=== PATIENT | male | born 1945 | race Caucasian/White ===

== ENCOUNTER 2016-11-01 17:10 | Emergency (ER) | payer BC, MEDICARE ==
[~2016-11-01] VITALS: Ht 175.3 cm; Wt 170.1 kg
[~2016-11-01 17:10] MED LIST: ACTOPLUS; ALLO100T; ALLO100T PO; ALLP300T PO; AMOX875T2; ASP325T; ASP81TEC PO; B12; CELE-63 PO; CELE200C; CHOL10007 PO; CITA20TA7 PO; CYAN100015 SL; DILT240C; DILT240C PO; DILT240C53 PO; ENXP80I.8 SQ; ESCT10T PO; FERR-74 PO; FERR325C PO; FINA5TAB6 PO; FLC1T; FLUC100T6 PO; FNST5T; FOLI1TAB24 PO; FRSM20T; FURO40TA4 PO; GLIP5TAB13; GLPZ10TCR; HYDR-2997 PO; IBP200T; INSU100I10; INSU100I10 SC; INSU100I23 SC; ISM30TCR; ISOS30TA3 PO; JANUVIA; KCL20TCR; LACT1CAP28 PO; NEBI5TAB8 PO; NF-ESOM40C PO; NYST15CR TP; OLME40TA14; OMEP20CA12; PIOG1TAB PO; POTA20TA8 PO; PRAV40TA; PRAV40TA2 PO; PRV20T; SULF1TAB35 PO; TAMS0.4C2 PO; WARF10TA4; WARF10TA44 PO; WRF10T PO; WRF1T PO; WRF5T PO; [UNRECOGNIZED DRUG - CODE]; [UNRECOGNIZED DRUG - REMARK]
[2016-11-01 18:34] LABS: BASOPHILS # (AUTO) 0.1 10^3/uL (0.0-0.1); BASOPHILS % (AUTO) 1 % (0-10); EOSINOPHILS # (AUTO) 0.4 10^3/uL (0.0-0.3); EOSINOPHILS % (AUTO) 3 % (0-10); LYMPHOCYTES # (AUTO) 2.2 X 10^3 (1.0-4.0); LYMPHOCYTES % (AUTO) 20 % (12-44); MEAN CORPUSCULAR HEMOGLOBIN 32 PG (25-34); MEAN CORPUSCULAR HGB CONC 34 G/DL (32-36); MEAN CORPUSCULAR VOLUME 93 FL (80-99); MEAN PLATELET VOLUME 9.7 FL (7.4-10.4); MONOCYTES # (AUTO) 1.2 X 10^3 (0.0-1.0); MONOCYTES % (AUTO) 11 % (0-12); NEUTROPHILS # (AUTO) 7.3 X 10^3 (1.8-7.8); NEUTROPHILS % (AUTO) 65 % (42-75); PLATELET COUNT 260 10^3/uL (130-400); RED BLOOD COUNT 4.53 10^6/uL (4.35-5.85); RED CELL DISTRIBUTION WIDTH 13.8 % (10.0-14.5); WHITE BLOOD COUNT 11.1 10^3/uL (4.3-11.0)
[2016-11-01] MEDS ORDERED: LIDOCAINE 1% INJ 20 ML (XYLOCAINE) VIAL ONE (18:34)
[2016-11-01 18:43] LABS: INR 2.9 (0.8-1.4)
--- NOTE | 2016-11-01 18:54 | ED Integumentary General ---
General Chief Complaint: Skin/Wound Problems Stated Complaint: HOLE IN SCROTUM Nursing Triage Note: AMB TO ROOM THINK MAY HAVE A WOUND ON SCROTUM THAT IS BLEEDING. Source: patient (SOMEWHAT LIMITED HISTORIAN), spouse (WOFE GIVES MOST INFORMATION) History of Present Illness Time seen by provider: 18:05 Initial Comments PT ARRIVES VIA POV PT BEGAN HAVING BLEEDING FROM HIS SCROTAL AREA THIS AM ON WAKING NO PAIN NO KNOWN INJURY WAS NOT AWARE OF ANY SORE IN THE AREA NO HISTORY OF SIMILAR NO DIFFICULTY URINATING OR WITH BOWEL MOVEMENTS. PT DOES HAVE INCONTINENCE OF URINE CHRONICALLY. PT TAKES COUMADIN FOR CHRONIC ATRIAL FIBRILLATION--LAST PROTIME WAS NORMAL PCP: DR. TORRES BENDING ROLL OPERATOR: DR. NORWOOD Allergies and Home Medications Allergies Coded Allergies: No Known Drug Allergies (Verified , 09/11/07) Home Medications Allopurinol 100 Mg Tablet, 100 MG PO BID, (Reported) Aspirin 81 Mg Tabec, 162 MG PO DAILY, (Reported) TAKES 2 (81MG) TABLETS Celecoxib 200 Mg Capsule, 200 MG PO BID, (Reported) Cholecalciferol (Vitamin D3) 1,000 Unit Capsule, 1,000 UNIT PO DAILY, (Reported) Citalopram Hydrobromide 20 Mg Tablet, 20 MG PO DAILY, (Reported) Cyanocobalamin (Vitamin B-12) 1,000 Mcg Tab.subl, 1,000 MCG SL DAILY, (Reported) Diltiazem HCl 240 Mg Cap.er.24h, 240 MG PO DAILY, (Reported) Ferrous Sulfate 325 Mg Tablet, 325 MG PO DAILY, (Reported) Finasteride 5 Mg Tablet, 5 MG PO DAILY, (Reported) Fluconazole 100 Mg Tablet, 100 MG PO DAILY@08, #7 Prescribed by: AGUEDA MCCAIN on 03/20/15 1109 Folic Acid 1 Mg Tablet, 1 MG PO DAILY, (Reported) Furosemide 40 Mg Tablet, 40 MG PO BID, (Reported) Insulin Glargine,Hum.rec.anlog 100 Unit/1 Ml Insuln.pen, 95 UNITS SC BID, ( Reported) Insulin Lispro 100 Unit/1 Ml Insuln.pen, 17 UNITS SC AC, (Reported) Isosorbide Mononitrate 30 Mg Tab.er.24h, 30 MG PO DAILY, (Reported) Lactobacillus Acidophilus 1 Each Capsule, 1 EACH PO TID, #30 Prescribed by: AGUEDA MCCAIN on 03/20/15 1109 Nebivolol HCl 5 Mg Tablet, 5 MG PO DAILY, (Reported) Nystatin 15 Gm Cream..g., 0 GM TP TID, #3 Prescribed by: AGUEDA MCCAIN on 03/20/15 1109 Potassium Chloride 20 Meq Tab.er.prt, 20 MEQ PO DAILY, (Reported) Pravastatin Sodium 40 Mg Tablet, 40 MG PO HS, (Reported) Sulfamethoxazole/Trimethoprim 1 Each Tablet, 1 EACH PO BID, #10 Prescribed by: AGUEDA MCCAIN on 03/20/15 1109 Tamsulosin HCl 0.4 Mg Cap.er.24h, 0.4 MG PO HS, (Reported) Warfarin Sodium 10 Mg Tablet, 10 MG PO HS, (Reported) Constitutional: no symptoms reported Genitourinary: see HPI Skin: see HPI Past Vpspfyb-Ygsvmf-Wlvtnu Hx Patient Social History Alcohol Use: Denies Use Recreational Drug Use: No Smoking Status: Never a Smoker Recent Foreign Travel: No Contact w/Someone Who Travel: No Recent Infectious Disease Expo: No Recent Hopitalizations: No Immunizations Up To Date Date of Pneumonia Vaccine: Apr 07, 2012 Date of Influenza Vaccine: Apr 07, 2014 Surgeries HX Surgeries: Yes (STITCHES IN LIP; CARDIAC CATH--STENT X 1) Surgeries: Cardiac, Coronary Stent, Eye Surgery, Gallbladder Respiratory Hx Respiratory Disorders: Yes Respiratory Disorders: Pneumonia, Sleep Apnea Cardiovascular Hx Cardiac Disorders: Yes (STENT x1) Cardiac Disorders: Chronic Edema/Swelling, High Cholesterol, Hypertension Neurological Hx Neurological Disorders: No Reproductive System Hx Reproductive Disorders: No Genitourinary Hx Genitourinary Disorders: No Gastrointestinal Hx Gastrointestinal Disorders: No Musculoskeletal Hx Musculoskeletal Disorders: Yes Musculoskeletal Disorders: Arthritis Endocrine Hx Endocrine Disorders: Yes (MORBID OBESITY) Endocrine Disorders: Diabetes, Insulin dep HEENT HX ENT Disorders: Yes ("white patch on eye") Hearing Impairment: Hard of Hearing, Bilateral Hearing Aide Cancer Hx Cancer: No Psychosocial Hx Psychiatric Problems: Yes Behavioral Health Disorders: Anxiety, Depression Integumentary HX Skin/Integumentary Disorder: Yes (CELLULITIS LOWER LEGS--CHRONIC STASIS DERMATITIS) Blood Transfusions Hx Blood Disorders: No Adverse Reaction to a Blood Tr: No Physical Exam Vital Signs Vital Sign - Last 12Hours 11/01/16 11/01/16 17:50 19:57 Temp 98.0 Pulse 84 Resp 18 B/P (MAP) 179/97 Pulse Ox 95 Capillary Refill : Less Than 3 Seconds General Appearance: obese (MORBIDLY OBESE) Gastrointestinal: non tender Skin: other (CHRONIC VENOUS STASIS CHANGES TO BILATERAL LOWER LEGS . SCROTUM WITH SUPERFICIAL VARICOSITIES, WITH PINPOINT AREA OF BLEEDING DIRECTLY OVER A VARICOSITY. ) Laceration Repair : Wound Location: Other (SCROTUM) Anesthesia: 1% Lidocaine Progress BLEEDING AREA CAUTERIZED WITH ELECTROCAUTERY WITH COMPLETE RESOLUTION OF BLEEDING PT OBSERVED IN ER FOR NEARLY AN HOUR WITH NO RETURN OF BLEEDING, EVEN ON STANDING AND WALKING TO BATHROOM, Progress/Results/Core Measures Results/Orders Lab Results Laboratory Tests Test 11/01/16 18:25 Range/Units White Blood Count 11.1 H 4.3-11.0 10^3/uL Red Blood Count 4.53 4.35-5.85 10^6/uL Hemoglobin 14.3 13.3-17.7 G/DL Hematocrit 42 40-54 % Mean Corpuscular Volume 93 80-99 FL Mean Corpuscular Hemoglobin 32 25-34 PG Mean Corpuscular Hemoglobin Concent 34 32-36 G/DL Red Cell Distribution Width 13.8 10.0-14.5 % Platelet Count 260 130-400 10^3/uL Mean Platelet Volume 9.7 7.4-10.4 FL Neutrophils (%) (Auto) 65 42-75 % Lymphocytes (%) (Auto) 20 12-44 % Monocytes (%) (Auto) 11 0-12 % Eosinophils (%) (Auto) 3 0-10 % Basophils (%) (Auto) 1 0-10 % Neutrophils # (Auto) 7.3 1.8-7.8 X 10^3 Lymphocytes # (Auto) 2.2 1.0-4.0 X 10^3 Monocytes # (Auto) 1.2 H 0.0-1.0 X 10^3 Eosinophils # (Auto) 0.4 H 0.0-0.3 10^3/uL Basophils # (Auto) 0.1 0.0-0.1 10^3/uL Prothrombin Time 30.0 H 12.2-14.7 SEC INR Comment 2.9 H 0.8-1.4 Activated Partial Thromboplast Time 39 H 24-35 SEC My Orders Orders - DORON LEES DO Cbc With Automated Diff (11/01/16 18:09) Protime With Inr (11/01/16 18:09) Partial Thromboplastin Time (11/01/16 18:09) Lidocaine 1% Injection (Xylocaine 1% Inj (11/01/16 18:34) Vital Signs/I&O Vital Sign - Last 12Hours 11/01/16 11/01/16 17:50 19:57 Temp 98.0 Pulse 84 70 Resp 18 18 B/P (MAP) 179/97 Pulse Ox 95 Blood Pressure Mean: 124 Departure Impression Impression: Primary Impression: SPONTANEOUS BLEEDING FROM SUPERFICIAL SCROTAL VARICOSE VEIN Additional Impression: Anticoagulation adequate with anticoagulant therapy Disposition: HOME, SELF-CARE Condition: Improved Departure-Patient Inst. Referrals: NENA TORRES DO (PCP/Family) Primary Care Physician Patient Instructions: Varicose Veins (DC), Wound Care (DC) Add. Discharge Instructions: AVOID ANY FRICTION OR RUBBING OF THE WOUND FOR 24 HOURS, THEN VERY GENTLY CLEAN WITH SOAP AND WATER IF AREA RE-BLEEDS, APPLY PRESSURE AND COOL COMPRESS FOLLOW UP WITH YOUR DR TOMORROW IF AREA CONTINUES TO BLEED All discharge instructions reviewed with patient and/or family. Voiced understanding. DORON LEES DO Nov 01, 2016 18:54
[2016-11-01 19:57] VITALS: BP 197/79
== END 2016-11-01 19:57 | disposition home or self-care (01) ==
LOC: EDUNIT# 17:10 → ER 17:12
DX: I86.1 Scrotal varices (principal); I10 Essential (primary) hypertension; E11.9 Type 2 diabetes mellitus without complications; I48.2 Chronic atrial fibrillation; R32 Unspecified urinary incontinence; E66.01 Morbid (severe) obesity due to excess calories; Z79.4 Long term (current) use of insulin; Z79.01 Long term (current) use of anticoagulants; Z79.899 Other long term (current) drug therapy; Z79.82 Long term (current) use of aspirin
CPT/HCPCS: 36415; 85025; 85610; 85730; 99281

== ENCOUNTER 2017-09-06 22:51 | Emergency (ER) | payer BC, MEDICARE ==
[~2017-09-06] VITALS: Ht 175.3 cm; Wt 172.4 kg
[~2017-09-06 22:51] MED LIST changes: -FERR-74 PO; +FERR325T18 PO
--- OUTSIDE RECORDS SUMMARY | 2017-09-06 22:58 | XMS REPORT | Continuity of Care Document ---
Author Author [facility] Organization [facility] Address Unknown Phone Unavailable Allergies Active Description Code Type Severity Reaction Onset Reported/Identified Relationship to Patient Clinical Status Yes No Known Drug Allergies [id number] Drug Allergy Unknown N/A 09/11/2007 Medications There is no data. Problems Date Dx Coded Attending Type Code Diagnosis Diagnosed By 10/13/2010 Ot 250.00 10/13/2010 Ot 272.4 10/13/2010 Ot 275.2 10/13/2010 Ot 278.01 10/13/2010 Ot 401.9 10/13/2010 Ot 414.01 10/13/2010 Ot 427.31 10/13/2010 Ot V45.82 10/13/2010 Ot V85.42 01/13/2011 Ot 427.31 05/30/2012 Ot 922.1 CONTUSION OF CHEST WALL 05/30/2012 Ot 959.11 OTH INJURY OF CHEST WALL 05/30/2012 Ot E000.8 OTHER EXTERNAL CAUSE STATUS 05/30/2012 Ot E001.0 ACTIVITIES INVOLVING WALKING, MARCHING A 05/30/2012 Ot E849.6 ACCIDENT IN PUBLIC BLDG 05/30/2012 Ot E880.1 FALL ON OR FROM SIDEWALK CURB 05/12/2014 NENA TORRES DO Ot 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 05/20/2014 NENA TORRES DO Ot 729.5 06/04/2014 Ot 959.7 06/04/2014 Ot E000.8 06/04/2014 Ot E849.0 06/04/2014 Ot E928.9 06/04/2014 Ot 427.31 06/04/2014 Ot 427.31 06/04/2014 ENMA PATEL FACC, BERNADETTE FACP CCDS Ot 250.00 06/04/2014 ENMA PATEL FACC, BERNADETTE FACP CCDS Ot 414.00 06/04/2014 ENMA PATEL FACC, BERNADETTE FACP CCDS Ot 427.31 06/04/2014 ENMA JACKMAN, ALI FACP CCDS Ot 433.10 06/04/2014 ENMA PAETL FAC, ALI FACP CCDS Ot 433.30 06/04/2014 ENMA PATEL FAC, ALI FACP CCDS Ot 785.9 06/04/2014 ENMA PATEL FACDominic, ALI FACP CCDS Ot 786.09 06/04/2014 NENA TORRES DO S Ot 603.9 06/04/2014 JEDCORY BUSINESS PROPOSAL REP Ot V58.69 06/04/2014 DARLEENCORY [place]LIN BUSINESS PROPOSAL REP Ot V58.83 06/04/2014 NENA TORRES DO S Ot 729.5 06/04/2014 NEREYDA CONNOLLY MD Ot 250.00 DIAB MELISA WO COMPL, TYPE II OR UNSPEC TY 06/04/2014 NEREYDA CONNOLLY MD Ot 272.0 PURE HYPERCHOLESTEROLEM 06/04/2014 NEREYDA CONNOLLY MD Ot 401.9 HYPERTENSION NOS 06/04/2014 NEREYDA CONNOLLY MD Ot 719.46 JOINT PAIN-L/LEG 06/04/2014 NEREYDA CONNOLLY MD Ot 920 CONTUSION FACE/SCALP/NCK 06/04/2014 NEREYDA CONNOLLY MD Ot 924.11 CONTUSION OF KNEE 06/04/2014 NEREYDA CONNOLLY MD Ot E000.8 OTHER EXTERNAL CAUSE STATUS 06/04/2014 NEREYDA CONNOLLY MD Ot E849.0 ACCIDENT IN HOME 06/04/2014 NEREYDA CONNOLLY MD Ot E880.9 FALL ON STAIR/STEP NEC 06/04/2014 NEREYDA CONNOLLY MD Ot V58.67 LONG-TERM (CURRENT) USE OF INSULIN 03/17/2015 Ot 959.7 03/17/2015 Ot E000.8 03/17/2015 Ot E849.0 03/17/2015 Ot E928.9 03/17/2015 Ot 427.31 03/17/2015 Ot 427.31 03/17/2015 ENMA PATEL FACC, ALI FACP CCDS Ot 250.00 03/17/2015 ENMA PATEL FAC, ALI FACP CCDS Ot 414.00 03/17/2015 ENMA PATEL FAC, ALI FACP CCDS Ot 427.31 03/17/2015 ENMA PATEL [facility], BERNADETTE [facility] CCDS Ot 433.10 03/17/2015 ENMA PATEL [facility] CCDS Ot 433.30 03/17/2015 ENMA PATEL [facility] CCDS Ot 785.9 03/17/2015 ENMA PATEL [facility] CCDS Ot 786.09 03/17/2015 NENA TORRES DO S Ot 603.9 03/17/2015 JED CORY [place] BUSINESS PROPOSAL REP Ot V58.69 03/17/2015 JED CORY [place] BUSINESS PROPOSAL REP Ot V58.83 03/17/2015 NENA TORRES DO S Ot 729.5 03/20/2015 KEKE TORRES DOLINE S Ot 038.9 SEPTICEMIA NOS 03/20/2015 KEKE TORRES DOLINE S Ot 112.3 CUTANEOUS CANDIDIASIS 03/20/2015 KACEY TORRES DOQUELINE S Ot 250.00 DIAB MELISA WO COMPL, TYPE II OR UNSPEC TY 03/20/2015 KEKE TORRES DOLINE S Ot 276.51 DEHYDRATION 03/20/2015 KACEY TORRES DOQUELINE S Ot 278.00 OBESITY, NOS 03/20/2015 KEKE TORRES DOLINE S Ot 401.9 HYPERTENSION NOS 03/20/2015 KEKE TORRES DOLINE S Ot 427.31 ATRIAL FIBRILLATION 03/20/2015 KACEY TORRES DOQUELINE S Ot 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 03/20/2015 KEKE TORRES DOLINE S Ot 593.9 RENAL URETERAL DIS NOS 03/20/2015 KEKE TORRES DOLINE S Ot 995.91 SEPSIS 03/20/2015 KEKE TORRES DOLINE S Ot V04.81 ND FOR PROPHYLACTIC VACCIN AND INOCULATI 03/20/2015 KEKE TORRES DOLINE S Ot V58.61 ANTICOAGULANTS,LT,CURRENT USE 03/20/2015 KEKE TORRES DOLINE S Ot V58.67 LONG-TERM (CURRENT) USE OF INSULIN 03/20/2015 KEKE TORRES DOLINE S Ot V85.43 BODY MASS INDEX 50.0-59.9, ADULT 09/01/2015 Ot 959.7 09/01/2015 Ot E000.8 09/01/2015 Ot E849.0 09/01/2015 Ot E928.9 09/01/2015 Ot 427.31 09/01/2015 Ot 427.31 09/01/2015 ENMA PATEL FACC, BERNADETTE FACP CCDS Ot 250.00 09/01/2015 ENAM PATEL FACC, ALI FACP CCDS Ot 414.00 09/01/2015 ENMA PATEL FACC, ALI FACP CCDS Ot 427.31 09/01/2015 ENMA PATEL FACC, ALI FACP CCDS Ot 433.10 09/01/2015 ENMA PATEL FACC, ALI FACP CCDS Ot 433.30 09/01/2015 ENMA PATEL FACC, BERNADETTE FACP CCDS Ot 785.9 09/01/2015 ENMA PATEL FACC, BERNADETTE FACP CCDS Ot 786.09 09/01/2015 NENA TORRES DO S Ot 603.9 09/01/2015 CORY ADKINSP Ot V58.69 09/01/2015 CORY ADIKNS BUSINESS PROPOSAL REP Ot V58.83 09/01/2015 NENA TORRES DO S Ot 729.5 09/28/2016 ENMA PATEL FACC, BERNADETTE FACP CCDS Ot 250.00 DIAB MELISA WO COMPL, TYPE II OR UNSPEC TY 09/28/2016 ENMA PATEL FACC, BERNADETTE FACP CCDS Ot 414.00 CORON ATHEROSCLER NOS TYPE VESSEL, NATIV 09/28/2016 ENMA PATEL FACC, BERNADETTE FACP CCDS Ot 427.31 ATRIAL FIBRILLATION 09/28/2016 ENMA PATEL FACC, BERNADETTE FACP CCDS Ot 433.10 CAROTID ARTERY OCCLUSION W O CEREBRAL IN 09/28/2016 ENMA PATEL FACC, BERNADETTE FACP CCDS Ot 433.30 MULT BILTRAL ARTERY OCCLUSION WO CEREBRA 09/28/2016 ENMA PATEL FACC, BERNADETTE FACP CCDS Ot 785.9 CARDIOVAS SYS SYMP NEC 09/28/2016 ENMA PATEL FACC, BERNADETTE FACP CCDS Ot 786.09 RESPIRATORY ABNORM NEC 09/28/2016 NENA TORRES DO S Ot 603.9 HYDROCELE NOS 09/28/2016 CORY ADKINS BUSINESS PROPOSAL REP Ot V58.69 OT MED,LT,CURRENT USE 09/28/2016 CORY ADKINS BUSINESS PROPOSAL REP Ot V58.83 ENCOUNTER FOR THERAPEUTIC DRUG MONITORIN 09/28/2016 NENA TORRES DO S Ot 729.5 PAIN IN LIMB 11/01/2016 ENMA PATEL FACC, BERNADETTE FACP CCDS Ot 250.00 DIAB MELISA WO COMPL, TYPE II OR UNSPEC TY 11/01/2016 ENMA PATEL FACC, ALI FACP CCDS Ot 414.00 CORON ATHEROSCLER NOS TYPE VESSEL, NATIV 11/01/2016 ENMA PATEL FACC, ALI FACP CCDS Ot 427.31 ATRIAL FIBRILLATION 11/01/2016 ENMA PATEL FACC, ALI FACP CCDS Ot 433.10 CAROTID ARTERY OCCLUSION W O CEREBRAL IN 11/01/2016 ENMA PATEL FACC, ALI FACP CCDS Ot 433.30 MULT BILTRAL ARTERY OCCLUSION WO CEREBRA 11/01/2016 ENAM PATEL FACC, ALI FACP CCDS Ot 785.9 CARDIOVAS SYS SYMP NEC 11/01/2016 ENMA PATEL FACC, ALI FACP CCDS Ot 786.09 RESPIRATORY ABNORM NEC 11/01/2016 NENA TORRES DO S Ot 603.9 HYDROCELE NOS 11/01/2016 CORY ADKINS BUSINESS PROPOSAL REP Ot V58.69 OTH MED,LT,CURRENT USE 11/01/2016 CORY ADKINS BUSINESS PROPOSAL REP Ot V58.83 ENCOUNTER FOR THERAPEUTIC DRUG MONITORIN 11/01/2016 NENA TORRES DO S Ot 729.5 PAIN IN LIMB 11/01/2016 DORON LEES DO Ot E11.9 TYPE 2 DIABETES MELLITUS WITHOUT COMPLIC 11/01/2016 DORON LEES DO Ot E66.01 MORBID (SEVERE) OBESITY DUE TO EXCESS CA 11/01/2016 DORON LEES DO Ot I10 ESSENTIAL (PRIMARY) HYPERTENSION 11/01/2016 DORON LEES DO Ot I48.2 CHRONIC ATRIAL FIBRILLATION 11/01/2016 DORON LEES DO Ot I86.1 SCROTAL VARICES 11/01/2016 DORON LEES DO Ot R32 UNSPECIFIED URINARY INCONTINENCE 11/01/2016 DORON LEES DO Ot Z79.01 SENIOR CARE (CURRENT) USE OF ANTICOAGULANT 11/01/2016 DORON LEES DO Ot Z79.4 SENIOR CARE (CURRENT) USE OF INSULIN 11/01/2016 DORON LEES DO Froy Ot 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 11/01/2016 YOANA DORON HIGGINS Ot Z79.899 OTHER 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 MECHANIC (CURRENT) DRUG THERAPY 11/14/2016 ENMA PATEL FACC, ALI FACP CCDS Ot 250.00 DIAB MELISA WO COMPL, TYPE II OR UNSPEC TY 11/14/2016 ENMA PATEL FACC, ALI FACP CCDS Ot 414.00 CORON ATHEROSCLER NOS TYPE VESSEL, NATIV 11/14/2016 ENMA PATEL FACC, ALI FACP CCDS Ot 427.31 ATRIAL FIBRILLATION 11/14/2016 ENMA PATEL FACC, ALI FACP CCDS Ot 433.10 CAROTID ARTERY OCCLUSION W O CEREBRAL IN 11/14/2016 ENMA PATEL FACC, ALI FACP CCDS Ot 433.30 MULT BILTRAL ARTERY OCCLUSION WO CEREBRA 11/14/2016 ENMA PATEL FACC, ALI FACP CCDS Ot 785.9 CARDIOVAS SYS SYMP NEC 11/14/2016 ENMA PATEL FACC, ALI FACP CCDS Ot 786.09 RESPIRATORY ABNORM NEC 11/14/2016 NENA TORRES DO S Ot 603.9 HYDROCELE NOS 11/14/2016 CORY ADKINSP Ot V58.69 OTH MED,LT,CURRENT USE 11/14/2016 CORY ADKINS BUSINESS PROPOSAL REP Ot V58.83 ENCOUNTER FOR THERAPEUTIC DRUG MONITORIN 11/14/2016 NENA TORRES DO S Ot 729.5 PAIN IN LIMB Procedures There is no data. Results Test Result Range Complete blood count (CBC) with automated white blood cell (WBC) differential - 11/01/16 18:25 Blood leukocytes automated count (number/volume) 11.1 10*3/uL 4.3-11.0 Blood erythrocytes automated count (number/volume) 4.53 10*6/uL 4.35-5.85 Venous blood hemoglobin measurement (mass/volume) 14.3 g/dL 13.3-17.7 Blood hematocrit (volume fraction) 42 % 40-54 Automated erythrocyte mean corpuscular volume 93 [foz_us] 80-99 Automated erythrocyte mean corpuscular hemoglobin (mass per erythrocyte) 32 pg 25-34 Automated erythrocyte mean corpuscular hemoglobin concentration measurement ( mass/volume) 34 g/dL 32-36 Automated erythrocyte distribution width ratio 13.8 % 10.0-14.5 Automated blood platelet count (count/volume) 260 10*3/uL 130-400 Automated blood platelet mean volume measurement 9.7 [foz_us] 7.4-10.4 Automated blood neutrophils/100 leukocytes 65 % 42-75 Automated blood lymphocytes/100 leukocytes 20 % 12-44 Blood monocytes/100 leukocytes 11 % 0-12 Automated blood eosinophils/100 leukocytes 3 % 0-10 Automated blood basophils/100 leukocytes 1 % 0-10 Blood neutrophils automated count (number/volume) 7.3 10*3 1.8-7.8 Blood lymphocytes automated count (number/volume) 2.2 10*3 1.0-4.0 Blood monocytes automated count (number/volume) 1.2 10*3 0.0-1.0 Automated eosinophil count 0.4 10*3/uL 0.0-0.3 Automated blood basophil count (count/volume) 0.1 10*3/uL 0.0-0.1 PT panel in platelet poor plasma by coagulation assay - 11/01/16 18:25 Prothrombin time (PT) in platelet poor plasma by coagulation assay 30.0 s 12.2-14.7 INR in platelet poor plasma or blood by coagulation assay 2.9 0.8-1.4 Activated partial thromboplastin time (aPTT) in platelet poor plasma bycoagulation assay - 11/01/16 18:25 Activated partial thromboplastin time (aPTT) in platelet poor plasma bycoagulation assay 39 s 24-35 Encounters ACCT No. Visit Date/Time Discharge Status Pt. Type Provider Facility Loc./Unit Complaint [id number] 11/01/2016 17:12:00 11/01/2016 19:57:00 DIS Emergency DORON LEES DO [facility] ER HOLE IN SCROTUM [id number] 03/17/2015 13:16:00 03/20/2015 13:50:00 DIS Inpatient NENA TORRES DO [facility] 4TH SUSPECTED SEPSIS [id number] 06/04/2014 15:26:00 06/04/2014 17:16:00 DIS Emergency NEREYDA CONNOLLY MD [facility] ER FALL; L SIDE PAIN [id number] 05/03/2014 10:50:00 05/12/2014 10:51:00 DIS Outpatient NENA TORRES DO [facility] WOUNDCARE BILAT VENOUS STASIS ULCERS,DERMATITIS [id number] 04/13/2014 14:52:00 04/13/2014 23:59:59 CLS Outpatient NENA TORRES DO [facility] RAD RT CALF SWELLING, PAIN [id number] 03/28/2014 10:13:00 03/28/2014 23:59:59 CLS Outpatient CORY ADKINS BUSINESS PROPOSAL REP [facility] LAB 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 MED USE [id number] 09/03/2013 09:35:00 09/03/2013 23:59:59 CLS Outpatient NENA TORRES DO [facility] RAD RT TESTICULAR SWELLING/PAIN [id number] 04/27/2013 08:43:00 04/27/2013 23:59:59 CLS Outpatient ENMA PATEL FACC, BERNADETTE FACP CCDS [facility] CARD DYSPNEA,CAD, AFIB [id number] 09/06/2017 22:54:00 ACT Emergency SWATI MCCORMACK MD [facility] ER BILAT ARM NUMBNESS/NECK PAIN [id number] 06/04/2014 15:27:00 Document Registration [id number] 06/04/2014 15:27:00 Document Registration [id number] 05/30/2012 08:41:00 Document Registration [id number] 01/14/2011 00:00:00 Document Registration [id number] 10/20/2010 09:43:00 Document Registration [id number] 10/15/2010 13:09:00 Document Registration [id number] 10/11/2010 11:00:00 Document Registration [id number] 04/21/2010 09:35:00 Document Registration
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
[2017-09-07 00:21] LABS: HEMOGLOBIN 13.9 G/DL (13.3-17.7); MEAN PLATELET VOLUME 9.8 FL (7.4-10.4); RED BLOOD COUNT 4.34 10^6/uL (4.35-5.85); RED CELL DISTRIBUTION WIDTH 13.5 % (10.0-14.5)
[2017-09-07 00:24] LABS: INR 2.8 (0.8-1.4)
[2017-09-07 00:26] LABS: FIBRIN DEGRADATION PRODUCTS 0.3 UG/ML (0.00-0.49)
[2017-09-07 00:32] LABS: BUN/CREATININE RATIO 22; CALCIUM 8.8 MG/DL (8.5-10.1); CARBON DIOXIDE 21 MMOL/L (21-32); CHLORIDE 104 MMOL/L (98-107); CREATININE SERUM 1.13 MG/DL (0.60-1.30); GFR ESTIMATED > 60; GLUCOSE 164 MG/DL (70-105); POTASSIUM 3.9 MMOL/L (3.6-5.0); SODIUM 137 MMOL/L (135-145)
[2017-09-07 01:10] VITALS: BP 135/71
== END 2017-09-07 01:10 | disposition home or self-care (01) ==
LOC: EDUNIT# 22:51 → ER 22:54
DX: M54.12 Radiculopathy, cervical region (principal); F41.9 Anxiety disorder, unspecified; F32.9 Major depressive disorder, single episode, unspecified; E78.00 Pure hypercholesterolemia, unspecified; I10 Essential (primary) hypertension; I48.91 Unspecified atrial fibrillation; G47.30 Sleep apnea, unspecified; E11.9 Type 2 diabetes mellitus without complications; E66.01 Morbid (severe) obesity due to excess calories; Z87.01 Personal history of pneumonia (recurrent); Z95.5 Presence of coronary angioplasty implant and graft; Z79.82 Long term (current) use of aspirin; Z79.01 Long term (current) use of anticoagulants; Z79.4 Long term (current) use of insulin; Z68.43 Body mass index [BMI] 50.0-59.9, adult
CPT/HCPCS: 36415; 80048; 82962; 84484; 85027; 85379; 85610

== ENCOUNTER 2018-04-18 13:13 | Emergency (ER) | payer OTHER, BC, MEDICARE ==
[~2018-04-18] VITALS: Ht 172.7 cm; Wt 136.1 kg
[~2018-04-18 13:13] MED LIST changes: -CITA20TA7 PO; +CITA20TA9 PO
[2018-04-18 13:29] LABS: BASOPHILS # (AUTO) 0.1 10^3/uL (0.0-0.1); BASOPHILS % (AUTO) 1 % (0-10); EOSINOPHILS # (AUTO) 0.2 10^3/uL (0.0-0.3); EOSINOPHILS % (AUTO) 2 % (0-10); HEMATOCRIT 44 % (40-54); HEMOGLOBIN 15.4 G/DL (13.3-17.7); LYMPHOCYTES # (AUTO) 2.1 X 10^3 (1.0-4.0); LYMPHOCYTES % (AUTO) 18 % (12-44); MEAN CORPUSCULAR HEMOGLOBIN 31 PG (25-34); MEAN CORPUSCULAR HGB CONC 35 G/DL (32-36); MEAN CORPUSCULAR VOLUME 90 FL (80-99); MEAN PLATELET VOLUME 9.5 FL (7.4-10.4); MONOCYTES # (AUTO) 0.9 X 10^3 (0.0-1.0); MONOCYTES % (AUTO) 8 % (0-12); NEUTROPHILS % (AUTO) 71 % (42-75); PLATELET COUNT 244 10^3/uL (130-400); RED BLOOD COUNT 4.92 10^6/uL (4.35-5.85); RED CELL DISTRIBUTION WIDTH 14.5 % (10.0-14.5); WHITE BLOOD COUNT 11.2 10^3/uL (4.3-11.0)
[2018-04-18] MEDS ORDERED: NS 250 ML (IVPB) BAG IV ONE (13:30)
[2018-04-18] MEDS ORDERED: IOHEXOL 350 MG/ML 100 ML (OMNIPAQUE 350) VIAL IV ONE (13:30)
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
[2018-04-18 14:12] LABS: BUN/CREATININE RATIO 21; CALCIUM 9.5 MG/DL (8.5-10.1); CARBON DIOXIDE 25 MMOL/L (21-32); CHLORIDE 100 MMOL/L (98-107); CREATININE SERUM 1.21 MG/DL (0.60-1.30); GFR ESTIMATED 59; GLUCOSE 133 MG/DL (70-105); POTASSIUM 3.7 MMOL/L (3.6-5.0); SODIUM 139 MMOL/L (135-145)
[2018-04-18] MEDS ORDERED: NS IV 500 ML 500 ML IV SCH (14:30)
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
[2018-04-18 15:35] VITALS: BP 142/70
--- OUTSIDE RECORDS SUMMARY | 2018-04-19 10:15 | XMS REPORT | Continuity of Care Document ---
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 05/20/2014 NATALIA GUTIERREZ DO Ot 729.5 06/04/2014 Ot 959.7 06/04/2014 Ot E000.8 06/04/2014 Ot E849.0 06/04/2014 Ot E928.9 06/04/2014 Ot 427.31 06/04/2014 Ot 427.31 06/04/2014 ENMA PATEL FACC, BERNADETTE FACP CCDS Ot 250.00 06/04/2014 ENMA PATEL FACC, BERNADETTE FACP CCDS Ot 414.00 06/04/2014 ENMA PATEL FACC, BERNADETTE FACP CCDS Ot 427.31 06/04/2014 ENMA JACKMAN, ALI FACP CCDS Ot 433.10 06/04/2014 ENMA PATEL FAC, ALI FACP CCDS Ot 433.30 06/04/2014 ENMA PATEL FAC, ALI FACP CCDS Ot 785.9 06/04/2014 ENMA PATEL FACDominic, ALI FACP CCDS Ot 786.09 06/04/2014 NATALIA GUTIERREZ DO S Ot 603.9 06/04/2014 JEDCORY NP Ot V58.69 06/04/2014 DARLEENCORY FRANKLIN NP Ot V58.83 06/04/2014 NATALIA GUTIERREZ DO S Ot 729.5 06/04/2014 NEREYDA CONNOLLY [...] FACP CCDS Ot 427.31 03/17/2015 ENMA PATEL [facility] [place] [facility] CCDS Ot 433.10 03/17/2015 ENMA PATEL [facility] CCDS Ot 433.30 03/17/2015 ENMA PATEL [facility] CCDS Ot 785.9 03/17/2015 ENMA PATEL [facility] CCDS Ot 786.09 03/17/2015 NATALIA GUTIERREZ DO S Ot 603.9 03/17/2015 JED CORY Arcelia NP Ot V58.69 03/17/2015 JED CORY [place] NP Ot V58.83 03/17/2015 NATALIA GUTIERREZ DO S Ot 729.5 03/20/2015 KEKE GUTIERREZ DOLINE S Ot 038.9 SEPTICEMIA NOS 03/20/2015 KEKE GUTIERREZ DOLINE S Ot 112.3 CUTANEOUS CANDIDIASIS 03/20/2015 KACEY GUTIERREZ DOQUELINE S Ot 250.00 DIAB MELISA WO COMPL, TYPE II OR UNSPEC TY 03/20/2015 KEKE GUTIERREZ DOLINE S Ot 276.51 DEHYDRATION 03/20/2015 KACEY GUTIERREZ DOQUELINE S Ot 278.00 OBESITY, NOS 03/20/2015 KEKE GUTIERREZ DOLINE S Ot 401.9 HYPERTENSION NOS 03/20/2015 KEKE GUTIERREZ DOLINE S Ot 427.31 ATRIAL FIBRILLATION 03/20/2015 KACEY GUTIERREZ DOQUELINE S Ot 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 03/20/2015 KEKE GUTIERREZ DOLINE S Ot 593.9 RENAL URETERAL DIS NOS 03/20/2015 KEKE GUTIERREZ DOLINE S Ot 995.91 SEPSIS 03/20/2015 KEKE GUTIERREZ DOLINE S Ot V04.81 ND FOR PROPHYLACTIC VACCIN AND INOCULATI 03/20/2015 KEKE GUTIERREZ DOLINE S Ot V58.61 ANTICOAGULANTS,LT,CURRENT USE 03/20/2015 KEKE GUTIERREZ DOLINE S Ot V58.67 LONG-TERM (CURRENT) USE OF INSULIN 03/20/2015 KEKE GUTIERREZ DOLINE S Ot V85.43 BODY MASS INDEX 50.0-59.9, ADULT 09/01/2015 Ot 959.7 09/01/2015 Ot E000.8 09/01/2015 Ot E849.0 09/01/2015 Ot E928.9 09/01/2015 Ot 427.31 09/01/2015 Ot 427.31 09/01/2015 ENMA PATEL FACC, BERNADETTE FACP CCDS Ot 250.00 09/01/2015 ENMA PATEL FACC, ALI FACP CCDS Ot 414.00 09/01/2015 ENMA PATEL FACC, ALI FACP CCDS Ot 427.31 09/01/2015 ENMA PATEL FACC, ALI FACP CCDS Ot 433.10 09/01/2015 ENMA PATEL FACC, ALI FACP CCDS Ot 433.30 09/01/2015 ENMA PATEL FACC, BERNADETTE FACP CCDS Ot 785.9 09/01/2015 ENMA PATEL FACC, BERNADETTE FACP CCDS Ot 786.09 09/01/2015 NATALIA GUTIERREZ DO S Ot 603.9 09/01/2015 CORY ADKINSP Ot V58.69 09/01/2015 CORY ADKINS NP Ot V58.83 09/01/2015 NATALIA GUTIERREZ DO S Ot 729.5 09/28/2016 ENMA PATEL [...] CCDS Ot 786.09 RESPIRATORY ABNORM NEC 09/28/2016 NATALIA GUTIERREZ DO S Ot 603.9 HYDROCELE NOS 09/28/2016 CORY ADKINS NP Ot V58.69 OT MED,LT,CURRENT USE 09/28/2016 CORY ADKINS NP Ot V58.83 ENCOUNTER FOR THERAPEUTIC DRUG MONITORIN 09/28/2016 NATALIA GUTIERREZ DO S Ot 729.5 PAIN IN LIMB [...] MULT BILTRAL ARTERY OCCLUSION WO CEREBRA 11/01/2016 ENMA PATEL FACC, ALI FACP CCDS Ot 785.9 CARDIOVAS SYS SYMP NEC 11/01/2016 ENMA PATEL FACC, ALI FACP CCDS Ot 786.09 RESPIRATORY ABNORM NEC 11/01/2016 NATALIA GUTIERREZ DO S Ot 603.9 HYDROCELE NOS 11/01/2016 CORY ADKINS NP Ot V58.69 OTH MED,LT,CURRENT USE 11/01/2016 CORY ADKINS NP Ot V58.83 ENCOUNTER FOR THERAPEUTIC DRUG MONITORIN 11/01/2016 NATALIA GUTIERREZ DO S Ot 729.5 PAIN IN LIMB [...] INCONTINENCE 11/01/2016 DORON LEES DO Ot Z79.01 [facility] (CURRENT) USE OF ANTICOAGULANT 11/01/2016 DORON LEES DO Ot Z79.4 [facility] (CURRENT) USE OF INSULIN 11/01/2016 DORON LEES DO Froy Ot 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 11/01/2016 YOANA DORON HIGGINS Ot Z79.899 OTHER ATOMIZER ASSEMBLER (CURRENT) DRUG THERAPY 11/14/2016 ENMA PATEL FACC, [...] CCDS Ot 786.09 RESPIRATORY ABNORM NEC 11/14/2016 NATALIA GUTIERREZ DO S Ot 603.9 HYDROCELE NOS 11/14/2016 CORY ADKINS NP Ot V58.69 OTH MED,LT,CURRENT USE 11/14/2016 CORY ADKINS NP Ot V58.83 ENCOUNTER FOR THERAPEUTIC DRUG MONITORIN 11/14/2016 NATALIA GUTIERREZ DO S Ot 729.5 PAIN IN LIMB 09/06/2017 ENMA PATEL FACC, ALI FACP CCDS Ot 250.00 DIAB MELISA WO COMPL, TYPE II OR UNSPEC TY 09/06/2017 ENMA PATEL FACC, ALI FACP CCDS Ot 414.00 CORON ATHEROSCLER NOS TYPE VESSEL, NATIV 09/06/2017 ENMA PATEL FACC, ALI FACP CCDS Ot 427.31 ATRIAL FIBRILLATION 09/06/2017 ENMA PATEL FACC, ALI FACP CCDS Ot 433.10 CAROTID ARTERY OCCLUSION W O CEREBRAL IN 09/06/2017 ENMA PATEL FACC, ALI FACP CCDS Ot 433.30 MULT BILTRAL ARTERY OCCLUSION WO CEREBRA 09/06/2017 ENMA PATEL FACC, ALI FACP CCDS Ot 785.9 CARDIOVAS SYS SYMP NEC 09/06/2017 ENMA PATEL FACC, ALI FACP CCDS Ot 786.09 RESPIRATORY ABNORM NEC 09/06/2017 BRIAN DO NATALIA S Ot 603.9 HYDROCELE NOS 09/06/2017 JEDCORY NP Ot V58.69 OTH MED,LT,CURRENT USE 09/06/2017 CLIFTONORALIACORY NP Ot V58.83 ENCOUNTER FOR THERAPEUTIC DRUG MONITORIN 09/06/2017 NATALIA GUTIERREZ DO S Ot 729.5 PAIN IN LIMB 09/07/2017 SWATI MCCORMACK MD Ot E11.9 TYPE 2 DIABETES MELLITUS WITHOUT COMPLIC 09/07/2017 SWATI MCCORMACK MD Ot E66.01 MORBID (SEVERE) OBESITY DUE TO EXCESS CA 09/07/2017 SWATI MCCORMACK MD Ot E78.00 PURE HYPERCHOLESTEROLEMIA, UNSPECIFIED 09/07/2017 SWATI MCCORMACK MD Ot F32.9 MAJOR DEPRESSIVE DISORDER, SINGLE EPISOD 09/07/2017 SWATI MCCORMACK MD Ot F41.9 ANXIETY DISORDER, UNSPECIFIED 09/07/2017 SWATI MCCORMACK MD Ot G47.30 SLEEP APNEA, UNSPECIFIED 09/07/2017 SWATI MCCORMACK MD Ot I10 ESSENTIAL (PRIMARY) HYPERTENSION 09/07/2017 SWATI MCCORMACK MD Ot I48.91 UNSPECIFIED ATRIAL FIBRILLATION 09/07/2017 SWATI MCCORMACK MD Ot M54.12 RADICULOPATHY, CERVICAL REGION 09/07/2017 SWATI MCCORMACK MD Ot M54.2 CERVICALGIA 09/07/2017 SWATI MCCORMACK MD Ot Z68.43 BODY MASS INDEX (BMI) 50-59.9 , ADULT 09/07/2017 SWATI MCCORMACK MD Ot 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.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 09/07/2017 SWATI MCCORMACK MD Ot Z79.4 [facility] (CURRENT) USE OF INSULIN 09/07/2017 SWATI MCCORMACK MD Ot 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 09/07/2017 SWATI MCCORMACK MD Ot Z87.01 PERSONAL HISTORY OF PNEUMONIA (RECURRENT 09/07/2017 SWATI MCCORMACK MD Ot Z95.5 PRESENCE OF CORONARY ANGIOPLASTY IMPLANT 09/09/2017 SWATI MCCORMACK MD Ot E11.9 TYPE 2 DIABETES MELLITUS WITHOUT COMPLIC 09/09/2017 SWATI MCCORMACK MD Ot E66.01 MORBID (SEVERE) OBESITY DUE TO EXCESS CA 09/09/2017 SWATI MCCORMACK MD Ot E78.00 PURE HYPERCHOLESTEROLEMIA, UNSPECIFIED 09/09/2017 SWATI MCCORMACK MD Ot F32.9 MAJOR DEPRESSIVE DISORDER, SINGLE EPISOD 09/09/2017 SWATI MCCORMACK MD Ot F41.9 ANXIETY DISORDER, UNSPECIFIED 09/09/2017 SWATI MCCORMACK MD Ot G47.30 SLEEP APNEA, UNSPECIFIED 09/09/2017 SWATI MCCORMACK MD Ot I10 ESSENTIAL (PRIMARY) HYPERTENSION 09/09/2017 SWATI MCCORMACK MD Ot I48.91 UNSPECIFIED ATRIAL FIBRILLATION 09/09/2017 SWATI MCCORMACK MD Ot M54.12 RADICULOPATHY, CERVICAL REGION 09/09/2017 SWATI MCCORMACK MD Ot M54.2 CERVICALGIA 09/09/2017 SWATI MCCORMACK MD Ot Z68.43 BODY MASS INDEX (BMI) 50-59.9 , ADULT 09/09/2017 SWATI MCCORMACK MD Ot Z79.01 [facility] (CURRENT) USE OF ANTICOAGULANT 09/09/2017 SWATI MCCORMACK MD Ot Z79.4 [facility] (CURRENT) USE OF INSULIN 09/09/2017 SWATI MCCORMACK MD Ot Z79.82 [facility] (CURRENT) USE OF ASPIRIN 09/09/2017 SWATI MCCORMACK MD Ot Z87.01 PERSONAL HISTORY OF PNEUMONIA (RECURRENT 09/09/2017 SWATI MCCORMACK MD Ot Z95.5 PRESENCE OF CORONARY ANGIOPLASTY IMPLANT 01/01/2018 MIMI COMER APRN Ot M25.432 EFFUSION, LEFT WRIST 01/16/2018 MIMI COMER APRN Ot M25.432 EFFUSION, LEFT WRIST Procedures There is no data. Results Test [...] poor plasma bycoagulation assay 39 s 24-35 Serum or plasma troponin i.cardiac measurement (mass/volume) - 09/06/17 23:05 Serum or plasma troponin i.cardiac measurement (mass/volume) < ng/ mL <0.30 Automated blood complete blood count (hemogram) panel - 09/06/17 23:05 Blood leukocytes automated count (number/volume) 12.0 10*3/uL 4.3-11.0 Blood erythrocytes automated count (number/volume) 4.34 10*6/uL 4.35-5.85 Venous blood hemoglobin measurement (mass/volume) 13.9 g/dL 13.3-17.7 Blood hematocrit (volume fraction) 40 % 40-54 Automated erythrocyte mean corpuscular volume 93 [foz_us] 80-99 Automated erythrocyte mean corpuscular hemoglobin (mass per erythrocyte) 32 pg 25-34 Automated erythrocyte mean corpuscular hemoglobin concentration measurement ( mass/volume) 35 g/dL 32-36 Automated erythrocyte distribution width ratio 13.5 % 10.0-14.5 Automated blood platelet count (count/volume) 248 10*3/uL 130-400 Automated blood platelet mean volume measurement 9.8 [foz_us] 7.4-10.4 PT panel in platelet poor plasma by coagulation assay - 09/06/17 23:05 Prothrombin time (PT) in platelet poor plasma by coagulation assay 29.0 s 12.2-14.7 INR in platelet poor plasma or blood by coagulation assay 2.8 0.8-1.4 Fibrin D-dimer FEU measurement in platelet poor plasma (mass/volume) - 23:05 Fibrin D-dimer FEU measurement in platelet poor plasma (mass/volume) 0.30 ug/mL 0.00-0.49 Whole blood basic metabolic panel - 09/06/17 23:05 Serum or plasma sodium measurement (moles/volume) 137 mmol/L 135-145 Serum or plasma potassium measurement (moles/volume) 3.9 mmol/L 3.6-5.0 Serum or plasma chloride measurement (moles/volume) 104 mmol/L 98-107 Carbon dioxide 21 mmol/L 21-32 Serum or plasma anion gap determination (moles/volume) 12 mmol/L 5-14 Serum or plasma urea nitrogen measurement (mass/volume) 25 mg/dL 7-18 Serum or plasma creatinine measurement (mass/volume) 1.13 mg/dL 0.60-1.30 Serum or plasma urea nitrogen/creatinine mass ratio 22 NRG Serum or plasma creatinine measurement with calculation of estimated glomerular filtration rate > NRG Serum or plasma glucose measurement (mass/volume) 164 mg/dL 70-105 Serum or plasma calcium measurement (mass/volume) 8.8 mg/dL 8.5-10.1 Capillary blood glucose measurement by glucometer (mass/volume) - 09/06/17 23: 21 Capillary blood glucose measurement by glucometer (mass/volume) 179 mg/dL 70-110 Complete blood count (CBC) with automated white blood cell (WBC) differential - 04/18/18 13:15 Blood leukocytes automated count (number/volume) 11.2 10*3/uL 4.3-11.0 Blood erythrocytes automated count (number/volume) 4.92 10*6/uL 4.35-5.85 Venous blood hemoglobin measurement (mass/volume) 15.4 g/dL 13.3-17.7 Blood hematocrit (volume fraction) 44 % 40-54 Automated erythrocyte mean corpuscular volume 90 [foz_us] 80-99 Automated erythrocyte mean corpuscular hemoglobin (mass per erythrocyte) 31 pg 25-34 Automated erythrocyte mean corpuscular hemoglobin concentration measurement ( mass/volume) 35 g/dL 32-36 Automated erythrocyte distribution width ratio 14.5 % 10.0-14.5 Automated blood platelet count (count/volume) 244 10*3/uL 130-400 Automated blood platelet mean volume measurement 9.5 [foz_us] 7.4-10.4 Automated blood neutrophils/100 leukocytes 71 % 42-75 Automated blood lymphocytes/100 leukocytes 18 % 12-44 Blood monocytes/100 leukocytes 8 % 0-12 Automated blood eosinophils/100 leukocytes 2 % 0-10 Automated blood basophils/100 leukocytes 1 % 0-10 Blood neutrophils automated count (number/volume) 8.0 10*3 1.8-7.8 Blood lymphocytes automated count (number/volume) 2.1 10*3 1.0-4.0 Blood monocytes automated count (number/volume) 0.9 10*3 0.0-1.0 Automated eosinophil count 0.2 10*3/uL 0.0-0.3 Automated blood basophil count (count/volume) 0.1 10*3/uL 0.0-0.1 Whole blood basic metabolic panel - 04/18/18 13:43 Serum or plasma sodium measurement (moles/volume) 139 mmol/L 135-145 Serum or plasma potassium measurement (moles/volume) 3.7 mmol/L 3.6-5.0 Serum or plasma chloride measurement (moles/volume) 100 mmol/L 98-107 Carbon dioxide 25 mmol/L 21-32 Serum or plasma anion gap determination (moles/volume) 14 mmol/L 5-14 Serum or plasma urea nitrogen measurement (mass/volume) 25 mg/dL 7-18 Serum or plasma creatinine measurement (mass/volume) 1.21 mg/dL 0.60-1.30 Serum or plasma urea nitrogen/creatinine mass ratio 21 NRG Serum or plasma creatinine measurement with calculation of estimated glomerular filtration rate 59 NRG Serum or plasma glucose measurement (mass/volume) 133 mg/dL 70-105 Serum or plasma calcium measurement (mass/volume) 9.5 mg/dL 8.5-10.1 Serum or plasma troponin i.cardiac measurement (mass/volume) - 04/18/18 13:43 Serum or plasma troponin i.cardiac measurement (mass/volume) < ng/ mL <0.30 Encounters ACCT No. Visit Date/Time Discharge Status Pt. Type Provider Facility Loc./Unit Complaint [id number] 12/31/2017 14:56:00 12/31/2017 23:59:59 CLS Outpatient MIMI COMER APRN [facility] RAD LEFT WRIST PAIN SWELLING [id number] 09/06/2017 22:54:00 09/07/2017 01:10:00 DIS Emergency SWATI MCCORMACK MD [facility] ER BILAT ARM NUMBNESS/NECK PAIN [id number] 11/01/2016 17:12:00 11/01/2016 19:57:00 DIS Emergency DORON LEES DO [facility] ER HOLE IN SCROTUM [id number] 03/17/2015 13:16:00 03/20/2015 13:50:00 DIS Inpatient NATALIA GUTIERREZ DO [facility] 4TH SUSPECTED SEPSIS [id number] 06/04/2014 15:26:00 06/04/2014 17:16:00 DIS Emergency NEREYDA CONNOLLY MD [facility] ER FALL; L SIDE PAIN [id number] 05/03/2014 10:50:00 05/12/2014 10:51:00 DIS Outpatient NATALIA GUTIERREZ DO [facility] WOUNDCARE BILAT VENOUS STASIS ULCERS,DERMATITIS [id number] 04/13/2014 14:52:00 04/13/2014 23:59:59 CLS Outpatient NATALIA GUTIERREZ DO [facility] RAD RT CALF SWELLING, PAIN [id number] 03/28/2014 10:13:00 03/28/2014 23:59:59 CLS Outpatient CLIFTONTOMMYCORY MENESES Arcelia PABLO [facility] LAB 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 [id number] 09/03/2013 09:35:00 09/03/2013 23:59:59 CLS Outpatient NATALIA GUTIERREZ DO [facility] RAD RT TESTICULAR SWELLING/PAIN [id number] 04/27/2013 08:43:00 04/27/2013 23:59:59 CLS Outpatient ENMA PATEL FACC, BERNADETTE BAUTISTA CCDS [facility] CARD DYSPNEA,CAD, AFIB [id number] 04/18/2018 13:30:00 Document Registration [id number] 06/04/2014 15:27:00 Document Registration [id number] 06/04/2014 15:27:00 Document Registration [id number] 05/30/2012 08:41:00 Document Registration [id number] 01/14/2011 00:00:00 Document Registration [id number] 10/20/2010 09:43:00 Document Registration [id number] 10/15/2010 13:09:00 Document Registration [id number] 10/11/2010 11:00:00 Document Registration [id number] 04/21/2010 09:35:00 Document Registration [id number] 03/17/2015 10:49:09 ACT Document Registration 09/201703/27/2018 08:50:23 03/27/2018 23:59:59 CLS Outpatient Natalia Gutierrez
== END 2018-04-18 15:40 | disposition home or self-care (01) ==
LOC: ER 13:13 → EDUNIT# 13:13 → ER 15:40
DX: S20.219A Contusion of unspecified front wall of thorax, initial encounter (principal); G47.30 Sleep apnea, unspecified; I48.91 Unspecified atrial fibrillation; E78.00 Pure hypercholesterolemia, unspecified; I10 Essential (primary) hypertension; E66.01 Morbid (severe) obesity due to excess calories; E11.9 Type 2 diabetes mellitus without complications; F41.9 Anxiety disorder, unspecified; F32.9 Major depressive disorder, single episode, unspecified; Z87.01 Personal history of pneumonia (recurrent); Z79.52 Long term (current) use of systemic steroids; Z68.43 Body mass index [BMI] 50.0-59.9, adult; Z79.4 Long term (current) use of insulin; Z95.5 Presence of coronary angioplasty implant and graft; Z79.01 Long term (current) use of anticoagulants; V43.52XA Car driver injured in collision with other type car in traffic accident, initial encounter
CPT/HCPCS: 36415; 70450; 71045; 71260; 72125; 74177; 80048; 84484; 85025

== ENCOUNTER 2018-08-16 18:20 | Emergency (ER) | payer BC, MEDICARE ==
[~2018-08-16] VITALS: Ht 175.3 cm; Wt 127.0 kg
[2018-08-16 18:41] LABS: BASOPHILS # (AUTO) 0.1 10^3/uL (0.0-0.1); BASOPHILS % (AUTO) 0 % (0-10); EOSINOPHILS # (AUTO) 0.1 10^3/uL (0.0-0.3); EOSINOPHILS % (AUTO) 0 % (0-10); HEMATOCRIT 42 % (40-54); HEMOGLOBIN 14.5 G/DL (13.3-17.7); LYMPHOCYTES # (AUTO) 0.9 X 10^3 (1.0-4.0); LYMPHOCYTES % (AUTO) 7 % (12-44); MEAN CORPUSCULAR HEMOGLOBIN 32 PG (25-34); MEAN CORPUSCULAR HGB CONC 34 G/DL (32-36); MEAN CORPUSCULAR VOLUME 92 FL (80-99); MEAN PLATELET VOLUME 9.2 FL (7.4-10.4); MONOCYTES # (AUTO) 1.1 X 10^3 (0.0-1.0); MONOCYTES % (AUTO) 9 % (0-12); NEUTROPHILS # (AUTO) 10.1 X 10^3 (1.8-7.8); NEUTROPHILS % (AUTO) 83 % (42-75); PLATELET COUNT 192 10^3/uL (130-400); RED CELL DISTRIBUTION WIDTH 14.3 % (10.0-14.5); WHITE BLOOD COUNT 12.2 10^3/uL (4.3-11.0)
[2018-08-16 18:50] LABS: INR 2.4 (0.8-1.4); PROTHROMBIN TIME PATIENT 26.5 SEC (12.2-14.7)
--- NOTE | 2018-08-16 18:56 | NUR ---
REPORT TO CHAZ ERWIN
[2018-08-16 18:58] LABS: ALANINE AMINOTRANSFERASE 25 U/L (0-55); ALBUMIN 3.8 GM/DL (3.2-4.5); ALKALINE PHOSPHATASE 78 U/L (40-136); BILIRUBIN,TOTAL 0.5 MG/DL (0.1-1.0); BUN/CREATININE RATIO 18; CARBON DIOXIDE 23 MMOL/L (21-32); CHLORIDE 102 MMOL/L (98-107); CREATININE SERUM 1.05 MG/DL (0.60-1.30); GFR ESTIMATED > 60; GLUCOSE 99 MG/DL (70-105); POTASSIUM 3.9 MMOL/L (3.6-5.0); SODIUM 138 MMOL/L (135-145); TOTAL PROTEIN 6.7 GM/DL (6.4-8.2)
[2018-08-16 19:25] LABS: BILIRUBIN,URINE NEGATIVE (NEGATIVE); CLARITY,URINE CLEAR; COLOR,URINE YELLOW; GLUCOSE, URINE (UA) NEGATIVE (NEGATIVE); KETONES,URINE NEGATIVE (NEGATIVE); LEUKOCYTE ESTERASE ,URINE 1+ (NEGATIVE); NITRITE,URINE NEGATIVE (NEGATIVE); PH,URINE 8 (5-9); PROTEIN,URINE 2+ (NEGATIVE); UROBILINOGEN,URINE NORMAL (NORMAL)
--- NOTE | 2018-08-16 19:27 | ED Fall/Injury ---
General Chief Complaint: Trauma-Non Activation Stated Complaint: FALL Nursing Triage Note: PT ARRIVED PER EMS, PT CO OF FALLING AT HOME, PT HAS C-COLLAR IN PLACE, PT HIT NOSE. DENIES LOC. STATES FELT DIZZY PRIOT TO FALLING. PT HAS SL IN R AC BY EMS. PT CO OF [place]LOR Source: patient Exam Limitations: no limitations History of Present Illness Date Seen by Provider: Aug 16, 2018 Time Seen by Provider: 18:37 Initial Comments Here from home with mechanical fall. Patient states he has difficulty moving his legs and thinks he tripped over something. He fell to the ground and hit his face on the ground. He is on Coumadin. Does admit to feeling a little dizzy prior to the fall. EMS was summoned and did place the patient in a c- collar. They did establish IV. Does complain of headache currently. Did have epistaxis that subsequently has resolved. Location Injury Occurred: HOME Occurred: just prior to arrival (approximately one hour ago) Severity: moderate Injuries/Pain Location: head, face, neck Associated Symptoms (Fall): No Chest Pain, No Confusion; Headache, Lightheadedness; No Nausea/Vomiting; Neck Pain Allergies and Home Medications Allergies Coded Allergies: No Known Drug Allergies (Verified , 09/11/07) Home Medications Allopurinol 100 Mg Tablet, 100 MG PO BID, (Reported) Aspirin 81 Mg Tabec, 162 MG PO DAILY, (Reported) TAKES 2 (81MG) TABLETS Celecoxib 200 Mg Capsule, 200 MG PO BID, (Reported) Cholecalciferol (Vitamin D3) 1,000 Unit Capsule, 1,000 UNIT PO DAILY, (Reported) Citalopram Hydrobromide 20 Mg Tablet, 20 MG PO DAILY, (Reported) Cyanocobalamin (Vitamin B-12) 1,000 Mcg Tab.subl, 1,000 MCG SL DAILY, (Reported) Diltiazem HCl 240 Mg Cap.er.24h, 240 MG PO DAILY, (Reported) Ferrous Sulfate 325 Mg Tablet, 325 MG PO DAILY, (Reported) Finasteride 5 Mg Tablet, 5 MG PO DAILY, (Reported) Fluconazole 100 Mg Tablet, 100 MG PO DAILY@08 Prescribed by: AGUEDA MCCAIN on 03/20/15 1109 Folic Acid 1 Mg Tablet, 1 MG PO DAILY, (Reported) Furosemide 40 Mg Tablet, 40 MG PO BID, (Reported) Insulin Glargine,Hum.rec.anlog 100 Unit/1 Ml Insuln.pen, 95 UNITS SC BID, ( Reported) Insulin Lispro 100 Unit/1 Ml Insuln.pen, 17 UNITS SC AC, (Reported) Isosorbide Mononitrate 30 Mg Tab.er.24h, 30 MG PO DAILY, (Reported) Lactobacillus Acidophilus 1 Each Capsule, 1 EACH PO TID Prescribed by: AGUEDA MCCAIN on 03/20/151108 Nebivolol HCl 5 Mg Tablet, 5 MG PO DAILY, (Reported) Nystatin 15 Gm Cream..g., 0 GM TP TID Prescribed by: AGUEDA MCCAIN on 03/20/151108 Potassium Chloride 20 Meq Tab.er.prt, 20 MEQ PO DAILY, (Reported) Pravastatin Sodium 40 Mg Tablet, 40 MG PO HS, (Reported) Sulfamethoxazole/Trimethoprim 1 Each Tablet, 1 EACH PO BID Prescribed by: AGUEDA MCCAIN on 03/20/151108 Tamsulosin HCl 0.4 Mg Cap.er.24h, 0.4 MG PO HS, (Reported) Warfarin Sodium 10 Mg Tablet, 10 MG PO HS, (Reported) Patient Home Medication List Home Medication List Reviewed: Yes Review of Systems Review of Systems Constitutional: see HPI; No chills, No fever Eyes: No Symptoms Reported Ears, Nose, Mouth, Throat: epistaxis; denies loose teeth Respiratory: No cough, No short of breath Cardiovascular: No chest pain, No edema Gastrointestinal: No abdominal pain, No nausea, No vomiting Genitourinary: no symptoms reported Musculoskeletal: back pain, joint pain, muscle pain, neck pain Skin: no symptoms reported Psychiatric/Neurological: Headache; Denies Tingling All Other Systems Reviewed Negative Unless Noted: Yes Past Hthwoyv-Yguuem-Tmxbsz Hx Past Med/Social Hx: Reviewed Nursing Past Med/Soc Hx Patient Social History Alcohol Use: Denies Use Recreational Drug Use: No Smoking Status: Never a Smoker Recent Foreign Travel: No Contact w/Someone Who Travel: No Recent Infectious Disease Expo: No Recent Hopitalizations: No Immunizations Up To Date Tetanus Booster (TDap): More than 5yrs Date of Pneumonia Vaccine: Apr 07, 2017 Date of Influenza Vaccine: Apr 07, 2017 Seasonal Allergies Seasonal Allergies: Yes Past Medical History Surgeries: Yes (CARDIAC CATH--RCA STENT) Cardiac, Coronary Stent, Eye Surgery, Gallbladder Respiratory: Yes (REFUSED TO COMPLETE SLEEP STUDY) Pneumonia, Sleep Apnea Cardiac: Yes (STENT x1) Atrial Fibrillation, Chronic Edema/Swelling, High Cholesterol, Hypertension Neurological: No Reproductive Disorders: No Genitourinary: Yes (POOR URINARY CONTROL) Gastrointestinal: No Musculoskeletal: Yes Arthritis Endocrine: Yes (MORBID OBESITY) Diabetes, Insulin dep HEENT: Yes (r ) Hearing Impairment: Hard of Hearing, Bilateral Hearing Aide Cancer: No Psychosocial: Yes Anxiety, Depression Integumentary: Yes (CELLULITIS LOWER LEGS--CHRONIC STASIS DERMATITIS) Blood Disorders: No Adverse Reaction/Blood Tranf: No Family Medical History Reviewed Nursing Family Hx Physical Exam Vital Signs Vital Signs - First Documented 08/16/18 18:20 Temp 97.8 Pulse 97 Resp 18 B/P (MAP) 177/82 (113) Pulse Ox 95 Capillary Refill : Less Than 3 Seconds Height, Weight, BMI Height: 5'9.00" Weight: 280lbs. 0.0oz. 127.335980yl; 42.18 BMI Method:Stated General Appearance: WD/WN, no apparent distress HEENT: PERRL/EOMI, pharynx normal, other (old blood in nares bilaterally with left greater than right. No active bleeding.) Neck: tender lateral, tender midline, other (c-collar in place. Complains of central neck pain) Cardiovascular: regular rate, rhythm, no murmur Respiratory: lungs clear, normal breath sounds Gastrointestinal: non tender, soft Back: normal inspection, no CVA tenderness, no vertebral tenderness Extremities: non-tender, normal inspection Neurologic/Psychiatric: alert, oriented x 3 Skin: normal color, warm/dry [place] Coma Score Best Eye Response: (4) Open Spontaneously Best Verbal Response: (5) Oriented Best Motor Response: (6) Obeys Commands Progress/Results/Core Measures Results/Orders Lab Results Laboratory Tests Test 08/16/18 18:05 08/16/18 19:18 Range/Units White Blood Count 12.2 H 4.3-11.0 10^3/uL Red Blood Count 4.57 4.35-5.85 10^6/uL Hemoglobin 14.5 13.3-17.7 G/DL Hematocrit 42 40-54 % Mean Corpuscular Volume 92 80-99 FL Mean Corpuscular Hemoglobin 32 25-34 PG Mean Corpuscular Hemoglobin Concent 34 32-36 G/DL Red Cell Distribution Width 14.3 10.0-14.5 % Platelet Count 192 130-400 10^3/uL Mean Platelet Volume 9.2 7.4-10.4 FL Neutrophils (%) (Auto) 83 H 42-75 % Lymphocytes (%) (Auto) 7 L 12-44 % Monocytes (%) (Auto) 9 0-12 % Eosinophils (%) (Auto) 0 0-10 % Basophils (%) (Auto) 0 0-10 % Neutrophils # (Auto) 10.1 H 1.8-7.8 X 10^3 Lymphocytes # (Auto) 0.9 L 1.0-4.0 X 10^3 Monocytes # (Auto) 1.1 H 0.0-1.0 X 10^3 Eosinophils # (Auto) 0.1 0.0-0.3 10^3/uL Basophils # (Auto) 0.1 0.0-0.1 10^3/uL Neutrophils % (Manual) 82 % Lymphocytes % (Manual) 4 % Monocytes % (Manual) 11 % Band Neutrophils 3 % Blood Morphology Comment NORMAL Prothrombin Time 26.5 H 12.2-14.7 SEC INR Comment 2.4 H 0.8-1.4 Activated Partial Thromboplast Time 37 H 24-35 SEC Sodium Level 138 135-145 MMOL/L Potassium Level 3.9 3.6-5.0 MMOL/L Chloride Level 102 98-107 MMOL/L Carbon Dioxide Level 23 21-32 MMOL/L Anion Gap 13 5-14 MMOL/L Blood Urea Nitrogen 19 H 7-18 MG/DL Creatinine 1.05 0.60-1.30 MG/DL Estimat Glomerular Filtration Rate > 60 BUN/Creatinine Ratio 18 Glucose Level 99 70-105 MG/DL Calcium Level 9.0 8.5-10.1 MG/DL Corrected Calcium 9.2 8.5-10.1 MG/DL Total Bilirubin 0.5 0.1-1.0 MG/DL Aspartate Amino Transf (AST/SGOT) 23 5-34 U/L Alanine Aminotransferase (ALT/SGPT) 25 0-55 U/L Alkaline Phosphatase 78 40-136 U/L C-Reactive Protein High Sensitivity 4.15 H 0.00-0.50 MG/DL Total Protein 6.7 6.4-8.2 GM/DL Albumin 3.8 3.2-4.5 GM/DL Urine Color YELLOW Urine Clarity CLEAR Urine pH 8 5-9 Urine Specific [place] 1.015 L 1.016-1.022 Urine Protein 2+ H NEGATIVE Urine Glucose (UA) NEGATIVE NEGATIVE Urine Ketones NEGATIVE NEGATIVE Urine Nitrite NEGATIVE NEGATIVE Urine Bilirubin NEGATIVE NEGATIVE Urine Urobilinogen NORMAL NORMAL MG/DL Urine Leukocyte Esterase 1+ H NEGATIVE Urine RBC (Auto) 4+ H NEGATIVE Urine RBC 50-100 H /HPF Urine WBC 5-10 H /HPF Urine Squamous Epithelial Cells 0-2 /HPF Urine Crystals NONE /LPF Urine Bacteria NEGATIVE /HPF Urine Casts NONE /LPF Urine Mucus NEGATIVE /LPF Urine Culture Indicated NO My Orders Orders - VASYL AUSTIN MD Ct Head/Face/Cervical Wo (08/16/18 18:36) Cbc With Automated Diff (08/16/18 18:36) Comprehensive Metabolic Panel (08/16/18 18:36) Hs C Reactive Protein (08/16/18 18:36) Protime With Inr (08/16/18 18:36) Partial Thromboplastin Time (08/16/18 18:36) Ua Culture If Indicated (08/16/18 18:36) Manual Differential (08/16/18 18:05) Chest 1 View, Ap/Pa Only (08/16/18 18:50) Clavicle, Right (08/16/18 18:50) Fentanyl Injection (Sublimaze Injection (08/16/18 20:06) Vital Signs/I&O 08/16/18 18:20 Temp 97.8 Pulse 97 Resp 18 B/P (MAP) 177/82 (113) Pulse Ox 95 Blood Pressure Mean: 113 Progress Progress Note : Progress Note Seen and evaluated. C collar placed by EMS. IV by EMS. Labs, CT head, face, neck ordered. Chest x-ray and right clavicle x-ray ordered. We will check for colitis patient is on Coumadin. Monitor patient. 1929: Patient is doing better but is complaining of some pain after the fall. Fentanyl 50 g IV. C- collar removed. Pending final reads and labs. Monitor patient. 2009: Coumadin level therapeutic. Otherwise doing okay. Discharged home with return precautions. Patient verbalize understanding instructions and agreement with plan. Diagnostic Imaging Diagonstic Imaging: Xray Plain Films/CT/US/NM/MRI: chest Comments [facility]. [place], [place] NAME: KAROLINE MARTIN [facility] REC#: [id number] PT STATUS: REG ER : 1945 PHYSICIAN: VASYL AUSTIN MD ADMIT DATE: 08/16/18/ER Draft Date of Exam:08/16/18 CHEST 1 VIEW, AP/PA ONLY EXAMINATION: Chest radiograph, portable AP view. DATE: August 16, 2018 at 1906 hours. INDICATION: 72-year-old male, fall. Chest pain. COMPARISON: April 18, 2018. FINDINGS: Heart size and mediastinal contours are unremarkable. There is no identified pneumothorax. There is no large pleural effusion. There is no identified focal airspace consolidation. The area of very high attenuation projecting over the left lateral chest potentially may relate to material external to the patient. Recommend correlation. IMPRESSION: 1. No identified acute cardiopulmonary abnormality. 2. High attenuation material projecting over the left chest which could be external to the patient. Recommend correlation. Dictated on workstation # [id number] Dict: 08/16/181920 Trans: 08/16/181924 [facility] [id number] Interpreted by: KHUSHBU LEDBETTER MD Electronically signed by: Diagonstic Imaging: CT Plain Films/CT/US/NM/MRI: facial bones, c-spine, head Comments NAME: KAROLINE MARTIN [facility] REC#: [id number] PT STATUS: REG ER : 1945 PHYSICIAN: VASYL AUSTIN MD ADMIT DATE: 08/16/18/ER Signed Date of Exam: 08/16/18 CT HEAD/FACE/CERVICAL WO PROCEDURE: CT head, face and cervical spine without contrast. TECHNIQUE: Multiple contiguous axial images were obtained through the head, neck and facial bones without the use of intravenous contrast. Sagittal and coronal reformations through the cervical spine and facial bones were also performed. DATE: August 16, 2018. COMPARISON: CT head and cervical spine, April 18, 2018. INDICATION: 72-year-old male, fall. Trauma to head and face. FINDINGS: There is a mild contour irregularity in the region of the forehead which may relate to a soft tissue injury. There is no identified radiopaque foreign body. The temporomandibular joints are normally aligned. There are right temporomandibular degenerative changes. The mandible is intact. There is no identified nasal bone fracture. The bony nasal septum is fairly near midline. There is no identified acute maxillofacial bone fracture. There is mucosal thickening of the left maxillary sinus. There is a polypoid lesion in the right maxillary sinus likely relating to a mucus retention cyst. The globes appear intact. There is no retro-orbital hematoma. There is proportional prominence of the ventricles and CSF spaces compatible with moderate to severe cerebral volume loss. There is no abnormal extra-axial fluid collection. There is no evidence of acute intracranial hemorrhage. There is no mass effect or midline shift. The mastoid air cells and middle ears are well aerated. There is no identified facet joint subluxation or dislocation. There is no asymmetric widening of the cervical disc spaces. There is no pronounced prevertebral soft tissue swelling. There is chondrocalcinosis. There are degenerative changes at the C1-C2 articulation. There is moderate to severe disc height loss with osteophyte formation at C6-C7 including posterior osteophytes. CT is limited for assessment of disc pathology as well as additional non-bony causes of foraminal and spinal stenosis. There is no identified acute fracture of the cervical spine. Very limited visualized portions of the lung apices are grossly clear. There are carotid vascular calcifications. IMPRESSION: 1. No identified acute intracranial abnormality. 2. Moderate to severe cerebral volume loss. 3. No identified acute maxillofacial bone fracture. 4. No identified acute posttraumatic abnormality of the cervical spine. Dictated by: Dictated on workstation # [id number] Dict: 08/16/181914 Trans: 08/16/181945 Interpreted by: KHUSHBU LEDBETTER MD Electronically signed by: KHUSHBU LEDBETTER MD 08/16/181945 Diagonstic Imaging: Xray Plain Films/CT/US/NM/MRI: other Comments NAME: KAROLINE MARTIN [facility] REC#: [id number] PT STATUS: REG ER : 1945 PHYSICIAN: VASYL AUSTIN MD ADMIT DATE: 08/16/18/ER Signed Date of Exam: 08/16/18 CLAVICLE, RIGHT EXAMINATION: Right clavicle, 2 views. COMPARISON: None. HISTORY: 72-year-old male, fall. Right clavicle pain. FINDINGS: The acromioclavicular joint is normally aligned. There are mild acromioclavicular degenerative changes with very small undersurface osteophytes. The humeral head is not obviously dislocated relative to the glenoid. There is no identified acute fracture. IMPRESSION: 1. No identified acute fracture. 2. Normally aligned acromioclavicular joint. 3. Very mild acromioclavicular degenerative changes. Dictated by: Dictated on workstation # [id number] Dict: 08/16/181926 Trans: 08/16/181945 Interpreted by: KHUSHBU LEDBETTER MD Electronically signed by: KHUSHBU LEDBETTER MD 08/16/181945 Departure Impression Primary Impression: Minor head injury Qualified Codes: S09.90XA - Unspecified injury of head, initial encounter Additional Impression: Epistaxis Disposition: 01 HOME, SELF-CARE Condition: Stable Departure-Patient Inst. Decision time for Depature: 20:12 Referrals: NENA GUTIERREZ DO (PCP/Family) Primary Care Physician Patient Instructions: Minor Head Injury (DC), Nosebleeds (DC) Add. Discharge Instructions: All discharge instructions reviewed with patient and/or family. Voiced understanding. Continue home medications as previously prescribed. You may take Tylenol 1000 mg every 8 hours as needed for pain. Follow-up with Dr. Gutierrez on Saturday. You may be increasingly sore tomorrow and this will be normal. Return for markedly increasing pain, weakness, dizziness, vision or balance problems, vomiting or other concerns as needed. VASYL AUSTIN MD Aug 16, 2018 19:27
[2018-08-16 19:33] LABS: RBC,URINE 50-100 /HPF
--- NOTE | 2018-08-16 19:33 | Diagnostic Imaging Report ---
EXAMINATION: Right clavicle, 2 views. COMPARISON: None. HISTORY: 72-year-old male, fall. Right clavicle pain. FINDINGS: The acromioclavicular joint is normally aligned. There are mild acromioclavicular degenerative changes with very small undersurface osteophytes. The humeral head is not obviously dislocated relative to the glenoid. There is no identified acute fracture. IMPRESSION: 1. No identified acute fracture. 2. Normally aligned acromioclavicular joint. 3. Very mild acromioclavicular degenerative changes. Dictated by: Dictated on workstation # [id number]
[2018-08-16 19:34] LABS: BACTERIA,URINE NEGATIVE /HPF; SQUAMOUS EPITHELIAL CELL,UR 0-2 /HPF
[2018-08-16 19:51] LABS: BAND NEUTROPHILS 3 %; LYMPHOCYTES % (MANUAL) 4 %; MONOCYTES % (MANUAL) 11 %; NEUTROPHILS % (MANUAL) 82 %
[2018-08-16 19:52] LABS: RBC MORPH NORMAL
[2018-08-16] MEDS ORDERED: fentaNYL INJECTION 100 MCG/2 ML AMP IVP STA (20:06)
[2018-08-16 20:35] VITALS: BP 136/95
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
== END 2018-08-16 20:44 | disposition home or self-care (01) ==
LOC: EDUNIT# 18:25 → ER 18:29
DX: S09.90XA Unspecified injury of head, initial encounter (principal); R04.0 Epistaxis; M25.511 Pain in right shoulder; R07.9 Chest pain, unspecified; I25.10 Atherosclerotic heart disease of native coronary artery without angina pectoris; G47.30 Sleep apnea, unspecified; I48.91 Unspecified atrial fibrillation; E78.00 Pure hypercholesterolemia, unspecified; I10 Essential (primary) hypertension; E66.01 Morbid (severe) obesity due to excess calories; E11.9 Type 2 diabetes mellitus without complications; F41.9 Anxiety disorder, unspecified; F32.9 Major depressive disorder, single episode, unspecified; R40.2142 Coma scale, eyes open, spontaneous, at arrival to emergency department; R40.2252 Coma scale, best verbal response, oriented, at arrival to emergency department; R40.2362 Coma scale, best motor response, obeys commands, at arrival to emergency department; Z87.01 Personal history of pneumonia (recurrent); Z98.890 Other specified postprocedural states; Z79.51 Long term (current) use of inhaled steroids; Z79.4 Long term (current) use of insulin; Z79.01 Long term (current) use of anticoagulants; Z95.5 Presence of coronary angioplasty implant and graft; W01.198A Fall on same level from slipping, tripping and stumbling with subsequent striking against other object, initial encounter; Y92.009 Unspecified place in unspecified non-institutional (private) residence as the place of occurrence of the external cause
CPT/HCPCS: 36415; 70450; 70486; 71045; 72125; 73000; 80053; 81000; 85007; 85027; 85610; 85730; 86141

== ENCOUNTER → 2020-01-26 | Outpatient (CLI) | payer BC, MEDICARE ==
[~2020-01-26] MED LIST changes: -WARF10TA44 PO
== END ==
LOC: LABNPT 06:44
PROVIDERS: ATTEND Family Medicine
DX: R50.9 Fever, unspecified (principal); R05 Cough; R06.02 Shortness of breath; Z20.828 Contact with and (suspected) exposure to other viral communicable diseases
CPT/HCPCS: 87635

== ENCOUNTER → 2020-02-25 | Outpatient (CLI) | payer BC, MEDICARE | LOC: LABNPT 09:23 | PROVIDERS: ATTEND Family Medicine | DX: E11.65 Type 2 diabetes mellitus with hyperglycemia (principal); Z79.01 Long term (current) use of anticoagulants | CPT/HCPCS: 85610 ==

== ENCOUNTER 2020-05-17 10:07 | Inpatient (IN) | payer BC, MEDICARE ==
[~2020-05-17] VITALS: Ht 175 cm; Wt 211.1 kg
[2020-05-17 10:54] LABS: BASOPHILS % (AUTO) 0 % (0-10); EOSINOPHILS % (AUTO) 0 % (0-10); HEMATOCRIT 46 % (40-54); HEMOGLOBIN 15.5 g/dL (13.3-17.7); LYMPHOCYTES # (AUTO) 1.6 10^3/uL (1.0-4.0); LYMPHOCYTES % (AUTO) 11 % (12-44); MEAN CORPUSCULAR HEMOGLOBIN 31 pg (25-34); MEAN CORPUSCULAR HGB CONC 34 g/dL (32-36); MEAN CORPUSCULAR VOLUME 92 fL (80-99); MEAN PLATELET VOLUME 9.5 fL (9.0-12.2); MONOCYTES # (AUTO) 1.3 10^3/uL (0.0-1.0); MONOCYTES % (AUTO) 9 % (0-12); NEUTROPHILS # (AUTO) 10.7 10^3/uL (1.8-7.8); NEUTROPHILS % (AUTO) 77 % (42-75); PLATELET COUNT 250 10^3/uL (130-400); WHITE BLOOD COUNT 13.9 10^3/uL (4.3-11.0)
[2020-05-17] MEDS ORDERED: NS IV 500 ML 500 ML IV ONE (10:56)
[2020-05-17] MEDS ORDERED: INSU300I3 SQ (10:59)
[2020-05-17] MEDS ORDERED: INSU300I SQ (10:59)
[2020-05-17] MEDS ORDERED: PAMI30VI8 SQ ×2 (10:59)
[2020-05-17 11:01] LABS: ALBUMIN 3.7 GM/DL (3.2-4.5); BILIRUBIN,TOTAL 0.6 MG/DL (0.1-1.0); CALCIUM 8.6 MG/DL (8.5-10.1); CREATININE SERUM 1.21 MG/DL (0.60-1.30); POTASSIUM 3.8 MMOL/L (3.6-5.0); TOTAL PROTEIN 7.3 GM/DL (6.4-8.2)
[2020-05-17 11:02] LABS: FIBRIN DEGRADATION PRODUCTS 0.52 UG/ML (0.00-0.49); INR 1.4 (0.8-1.4); PROTHROMBIN TIME PATIENT 17.7 SEC (12.2-14.7)
--- NOTE | 2020-05-17 11:12 | ED General ---
General Chief Complaint: Respiratory Problems Stated Complaint: COVID +,WEAKNESS, RESP ISSUES Nursing Triage Note: PT COVID + HELPED OUT OF TRUCK, STATES HAS HAD COVID SINCE LAST SATURDAY. HAS WEAKNESS, LETHARGY, FEVER AND PERSISTANT COUGH AND SOB. PT OBESE AND HAS DIFFICULTY MOVING FROM CHAIR TO ED CART. O2 SAT 78% ON ROOM AIR UPON ARRIVAL. FINGERS DUSKY, STATES HAD C/P LAST NITE BUT NONE TODAY Nursing Sepsis Screen: Possible Sepsis Risk Source of Information: Patient Exam Limitations: No Limitations History of Present Illness Date Seen by Provider: May 17, 2020 Time Seen by Provider: 10:17 Initial Comments Here with report of being Covid positive for the last week (diagnosed May 09 at [facility] urgent care) and being significantly short of breath and weak. Arrives via POV that he drove but needed significant assistance to get out of as well as to get into bed. Quite dyspneic on arrival and febrile. Denies nausea or vomiting. Reports that his persistent and worsening cough specially over the last 24 hours. States that he is too weak to even stand or move and overall feels terrible. Does have history of A. fib, diabetes and heart disease. Admits to chest pain last night but has not had any this morning. Reports taking meds as directed. Has not had anything for fever today . Timing/Duration: 1 Week, Getting Worse Severity: Severe Modifying Factors: worse with Movement; improves with Rest Associated Systoms: Chest Pain, Cough, Fever/Chills, Loss of Appetite; No Nausea/Vomiting; Shortness of Air, Weakness Allergies and Home Medications Allergies Coded Allergies: No Known Drug Allergies (Verified , 09/11/07) Home Medications Allopurinol 100 Mg Tablet, 100 MG PO BID, (Reported) Aspirin 81 Mg Tabec, 162 MG PO DAILY, (Reported) TAKES 2 (81MG) TABLETS Celecoxib 200 Mg Capsule, 200 MG PO BID, (Reported) Cholecalciferol (Vitamin D3) 1,000 Unit Capsule, 1,000 UNIT PO DAILY, (Reported) Citalopram Hydrobromide 20 Mg Tablet, 20 MG PO DAILY, (Reported) Cyanocobalamin (Vitamin B-12) 1,000 Mcg Tab.subl, 1,000 MCG SL DAILY, (Reported) Diltiazem HCl 240 Mg Cap.er.24h, 240 MG PO DAILY, (Reported) Ferrous Sulfate 325 Mg Tablet, 325 MG PO DAILY, (Reported) Finasteride 5 Mg Tablet, 5 MG PO DAILY, (Reported) Folic Acid 1 Mg Tablet, 1 MG PO DAILY, (Reported) Furosemide 40 Mg Tablet, 40 MG PO BID, (Reported) Insulin Glargine,Hum.rec.anlog 300 Unit/1 Ml Insuln.pen, 145 UNIT SQ AM, (Reported) Insulin Glargine,Hum.rec.anlog 300 Unit/1 Ml Insuln.pen, 185 UNIT SQ PM, (Reported) Insulin Lispro 100 Unit/1 Ml Cartridge, 30 UNIT SQ NOON, (Reported) Isosorbide Mononitrate 30 Mg Tab.er.24h, 30 MG PO DAILY, (Reported) Pravastatin Sodium 40 Mg Tablet, 40 MG PO HS, (Reported) Tamsulosin HCl 0.4 Mg Cap.er.24h, 0.4 MG PO HS, (Reported) Warfarin Sodium 10 Mg Tablet, 10 MG PO HS, (Reported) Patient Home Medication List Home Medication List Reviewed: Yes Review of Systems Review of Systems Constitutional: see HPI, chills, fever, malaise, weakness EENTM: nose congestion; No throat pain Respiratory: cough, short of breath Cardiovascular: chest pain, edema Gastrointestinal: No abdominal pain, No nausea, No vomiting Genitourinary: no symptoms reported Musculoskeletal: No back pain, No joint pain Skin: change in color (Stasis lesions), dryness Psychiatric/Neurological: Denies Headache; Weakness All Other Systems Reviewed Negative Unless Noted: Yes Past Qzvvisl-Renaqc-Xyhkxk Hx Past Med/Social Hx: Reviewed Nursing Past Med/Soc Hx Patient Social History Alcohol Use: Denies Use Recreational Drug Use: No Smoking Status: Never a Smoker Recent Foreign Travel: No Contact w/Someone Who Travel: No Recent Infectious Disease Expo: Yes Recent Hopitalizations: No Physical Abuse: No Sexual Abuse: No Immunizations Up To Date Tetanus Booster (TDap): More than 5yrs Date of Pneumonia Vaccine: Apr 07, 2017 Date of Influenza Vaccine: Apr 07, 2017 Seasonal Allergies Seasonal Allergies: Yes Past Medical History Surgeries: Yes (CARDIAC CATH--RCA STENT) Cardiac, Coronary Stent, Eye Surgery, Gallbladder Respiratory: Yes (REFUSED TO COMPLETE SLEEP STUDY) Pneumonia, Sleep Apnea Cardiac: Yes (STENT x1) Atrial Fibrillation, Chronic Edema/Swelling, High Cholesterol, Hypertension Neurological: No Reproductive Disorders: No Genitourinary: Yes (POOR URINARY CONTROL) Gastrointestinal: No Musculoskeletal: Yes Arthritis Endocrine: Yes (MORBID OBESITY) Diabetes, Insulin dep HEENT: Yes (r ) Hearing Impairment: Hard of Hearing, Bilateral Hearing Aide Cancer: No Psychosocial: Yes Anxiety, Depression Integumentary: Yes (CELLULITIS LOWER LEGS--CHRONIC STASIS DERMATITIS) Blood Disorders: No Adverse Reaction/Blood Tranf: No Family Medical History Reviewed Nursing Family Hx Physical Exam-Suspected Sepsis Physical Exam Vital Signs Vital Signs - First Documented 05/17/20 10:10 Temp 38.0 Pulse 77 Resp 36 B/P (MAP) 177/76 (109) Pulse Ox 94 O2 Delivery OxyMask O2 Flow Rate 6.00 Capillary Refill : Less Than 3 Seconds Blood Pressure Mean: 109 Height, Weight, BMI Height: 5'9.00" Weight: 280lbs. 0.0oz. 127.632257rp; 56.00 BMI Method:Stated General Appearance: No Apparent Distress, WD/WN HEENT: PERRL/EOMI, Other (Mucous membranes dry) Neck: Non Tender, Supple Respiratory: Crackles, Decreased Breath Sounds, Expiration Cardiovascular: Regular Rate, Rhythm, No Murmur Gastrointestinal: Non Tender, Soft Back: Normal Inspection, No CVA Tenderness, No Vertebral Tenderness Extremity: Normal Range of Motion, Non Tender, Pedal Edema (2+ bilateral lower extremities) Neurologic/Psychiatric: Alert, Oriented x3, Motor Weakness (Global) Skin: warm/dry, other (Venous stasis discoloration to the lower extremities) Focused Exam Lactate Level 05/17/20 10:25: Lactic Acid Level 1.81 Lactic Acid Level Laboratory Tests Test 05/17/20 10:25 Lactic Acid Level 1.81 MMOL/L (0.50-2.00) Progress/Results/Core Measures Suspected Sepsis Recent Fever Within 48 Hours: Yes Infection Criteria Present: Documented Infection New/Unexplained Altered Menta: No Sepsis Screen: Possible Sepsis Risk SIRS Temperature: Pulse: 77 Respiratory Rate: 36 Laboratory Tests 05/17/20 10:25: White Blood Count 13.9H Blood Pressure 177 /76 Mean: 109 05/17/20 10:25: Lactic Acid Level 1.81 Laboratory Tests 05/17/20 10:25: Creatinine 1.21, INR Comment 1.4, Platelet Count 250, Total Bilirubin 0.6 Results/Orders Lab Results Laboratory Tests Test 05/17/20 10:25 Range/Units White Blood Count 13.9 H 4.3-11.0 10^3/uL Red Blood Count 4.97 4.30-5.52 10^6/uL Hemoglobin 15.5 13.3-17.7 g/dL Hematocrit 46 40-54 % Mean Corpuscular Volume 92 80-99 fL Mean Corpuscular Hemoglobin 31 25-34 pg Mean Corpuscular Hemoglobin Concent 34 32-36 g/dL Red Cell Distribution Width 13.2 10.0-14.5 % Platelet Count 250 130-400 10^3/uL Mean Platelet Volume 9.5 9.0-12.2 fL Immature Granulocyte % (Auto) 2 % Neutrophils (%) (Auto) 77 H 42-75 % Lymphocytes (%) (Auto) 11 L 12-44 % Monocytes (%) (Auto) 9 0-12 % Eosinophils (%) (Auto) 0 0-10 % Basophils (%) (Auto) 0 0-10 % Neutrophils # (Auto) 10.7 H 1.8-7.8 10^3/uL Lymphocytes # (Auto) 1.6 1.0-4.0 10^3/uL Monocytes # (Auto) 1.3 H 0.0-1.0 10^3/uL Eosinophils # (Auto) 0.0 0.0-0.3 10^3/uL Basophils # (Auto) 0.0 0.0-0.1 10^3/uL Immature Granulocyte # (Auto) 0.3 H 0.0-0.1 10^3/uL Prothrombin Time 17.7 H 12.2-14.7 SEC INR Comment 1.4 0.8-1.4 D-Dimer 0.52 H 0.00-0.49 UG/ML Sodium Level 132 L 135-145 MMOL/L Potassium Level 3.8 3.6-5.0 MMOL/L Chloride Level 99 98-107 MMOL/L Carbon Dioxide Level 22 21-32 MMOL/L Anion Gap 11 5-14 MMOL/L Blood Urea Nitrogen 33 H 7-18 MG/DL Creatinine 1.21 0.60-1.30 MG/DL Estimat Glomerular Filtration Rate 58 BUN/Creatinine Ratio 27 Glucose Level 74 70-105 MG/DL Lactic Acid Level 1.81 0.50-2.00 MMOL/L Calcium Level 8.6 8.5-10.1 MG/DL Corrected Calcium 8.8 8.5-10.1 MG/DL Total Bilirubin 0.6 0.1-1.0 MG/DL Aspartate Amino Transf (AST/SGOT) 41 H 5-34 U/L Alanine Aminotransferase (ALT/SGPT) 48 0-55 U/L Alkaline Phosphatase 61 40-136 U/L Troponin I 0.045 H <0.028 NG/ML C-Reactive Protein High Sensitivity 1.81 H 0.00-0.50 MG/DL Total Protein 7.3 6.4-8.2 GM/DL Albumin 3.7 3.2-4.5 GM/DL Procalcitonin 0.08 <0.10 NG/ML My Orders Orders - VASYL AUSTIN MD Ekg Tracing (05/17/20 10:56) O2 (05/17/20 10:56) Monitor-Rhythm Ecg Trace Only (05/17/20 10:56) Troponin I (05/17/20 10:56) Ed Iv/Invasive Line Start (05/17/20 10:56) Ns Iv 500 Ml (Sodium Chloride 0.9%) (05/17/20 10:56) Convalescent Plasma (05/17/20 11:41) Abo Rh Type (05/17/20 11:41) Dexamethasone Tablet (Decadron Tablet) (05/17/20 12:15) Medications Given in ED Current Medications Medications Dose Ordered Sig/Jonathan Route Start Time Stop Time Status Last Admin Dose Admin Sodium Chloride 500 ml @ 0 mls/hr Q0M ONCE IV 05/17/20 10:56 05/17/20 10:58 DC 05/17/20 11:07 500 MLS/HR Vital Signs/I&O 05/17/20 10:10 Temp 38.0 Pulse 77 Resp 36 B/P (MAP) 177/76 (109) Pulse Ox 94 O2 Delivery OxyMask O2 Flow Rate 6.00 Capillary Refill : Less Than 3 Seconds Blood Pressure Mean: 109 Progress Note : Progress Note Seen and evaluated on arrival. To room 9 with Covid precautions in place. Initiated sepsis protocol as well as EKG, blood cultures and lactic acid. Plac ed on O2 via oxygen mask at 8 L/min and then decreased to 4. Initial O2 sats in the 70s. Patient is quite weak and ill-appearing. Normal saline 500 mL bolus. Monitor patient. 1145: Patient had worsening sats and O2 saturation increased to 8 L/min again. O2 sats in 92 to 94% range now. I have discussed the case with Dr. TORRES and Dr. Sanders, patient's primary care physician and hospitalist. Patient will need to go to the ICU. I discussed with the patient regarding remdesivir and convalescent plasma giving risk of benefits of both. He is okay with both but would like me to discuss with Dr. TORRES which I did. She agreed with that therapy. I also discussed that with Dr. Cevallos, ICU physician who will take the patient for admission. He agrees with both therapies. Convalescent plasma ordered by me with remdesivir to be ordered by Dr. Cevallos. We will initiate Decadron 6 mg p.o. now and continue that while in the hospital. Patient to be admitted to the ICU. I did discuss all of this with the patient as well as his (by phone) and both agree with admission and plan. Admit, inpatient status, critical condition. Patient has high risk of mortality due to multiple comorbidities including obesity, advanced age, heart disease and diabetes in the setting of COVID-19 infection. ECG Initial ECG Impression Date: May 17, 2020 Initial ECG Impression Time: 10:31 Initial ECG Rate: 78 Initial ECG Comparisson: Changed (Slightly wider QRS complexes from 04/18/2018.) Comment Sinus rhythm with right bundle branch block and left anterior fascicular block. Left axis deviation. Minimal ST elevation in leads II and possibly lead III. Does not meet STEMI criteria. Otherwise no evidence of ST elevation VT. Interpreted by me. Diagnostic Imaging Diagonstic Imaging: Xray Plain Films/CT/US/NM/MRI: chest Comments [facility] [place], [place] NAME: KAROLINE MARTIN [facility] REC#: [id number] PT STATUS: REG ER : 1945 PHYSICIAN: JAXSON TINOCO APRN ADMIT DATE: 05/17/20/ER Draft Date of Exam:05/17/20 CHEST 1 VIEW, AP/PA ONLY INDICATION: Covid positive. COMPARISON: 08/16/2018. FINDINGS: Cardiomegaly is again noted. The lungs are well-aerated. There is suggestion of some subtle alveolar infiltrate developing in the lung bases bilaterally on today's exam. No pneumothorax. No pleural effusion. IMPRESSION: 1. Persistent cardiomegaly without evidence of congestive failure. 2. Probable developing bilateral lower lobe alveolar infiltrates. 3. The report was faxed to Infection Control by [email or web address]@11:20 AM. Dictated on workstation # [id number] Dict: 05/17/20 1117 Trans: 05/17/20 [facility]1 [id number] Interpreted by: AVIS RICHARDSON MD Electronically signed by: Reviewed: Reviewed by Me Departure Communication (Admissions) Time/Spoke to Admitting Phy: 11:45 Impression Primary Impression: Pneumonia due to COVID-19 virus Additional Impressions: Respiratory failure Qualified Codes: J96.01 - Acute respiratory failure with hypoxia Troponin level elevated Disposition: ADMITTED INPATIENT Condition: Critical Admissions Decision to Admit Reason: Admit from ER (General) Decision to Admit/Date: May 17, 2020 Time/Decision to Admit Time: 11:45 Departure-Patient Inst. Referrals: NENA TORRES DO (PCP/Family) Primary Care Physician VASYL AUSTIN MD May 17, 2020 11:12
--- NOTE | 2020-05-17 11:21 | Diagnostic Imaging Report ---
INDICATION: Covid positive. COMPARISON: 08/16/2018. FINDINGS: Cardiomegaly is again noted. The lungs are well-aerated. There is suggestion of some subtle alveolar infiltrate developing in the lung bases bilaterally on today's exam. No pneumothorax. No pleural effusion. IMPRESSION: 1. Persistent cardiomegaly without evidence of congestive failure. 2. Probable developing bilateral lower lobe alveolar infiltrates. 3. The report was faxed to Infection Control by fam@11:20 AM. Dictated by: Dictated on workstation # [id number]
--- NOTE | 2020-05-17 11:49 | NUR ---
UPDATED ON PT CONDITION
--- NOTE | 2020-05-17 12:02 | NUR ---
PT TO ICU 1
[2020-05-17] MEDS ORDERED: dexAMETHasone 6 MG TAB (DECADRON) PO SCH (12:15)
[2020-05-17] MEDS ORDERED: LACTATED RINGERS 1,000 ML IV ONE (13:21)
[2020-05-17] MEDS ORDERED: ACETAMINOPHEN 325 MG SUPP (TYLENOL) PR PRN (13:45)
[2020-05-17] MEDS ORDERED: LACTATED RINGERS 1,000 ML IV SCH (13:45)
[2020-05-17] MEDS ORDERED: ONDANSETRON 4 MG/2 ML (SDV) Z0FRAN IVP PRN (13:45)
[2020-05-17] MEDS ORDERED: REMDESIVIR INJ 200 MG in NS (IVPB) 210 ML IV NR (14:15)
[2020-05-17] MEDS ORDERED: NS (IVPB) 250 ML ONE (15:44)
[2020-05-17 15:51] VITALS: BP 146/52
--- NOTE | 2020-05-17 16:00 | NUR ---
CONVALESCENT PLASMA INITIATED AFTER VERBAL CONSENT FROM PATIENT. VERIFIED AT BEDSIDE WITH ROB ERWIN. UNABLE TO SCAN AT THIS TIME.
[2020-05-17] MEDS ORDERED: FLUT12AE6 INH (16:11)
[2020-05-17] MEDS ORDERED: CHOL10007 PO (16:11)
[2020-05-17] MEDS ORDERED: CARV6.252 PO (16:11)
[2020-05-17] MEDS ORDERED: LORA10TA7 PO (16:11)
[2020-05-17] MEDS ORDERED: TMSL.4C PO (16:11)
[2020-05-17] MEDS ORDERED: POTA20TA15 PO (16:11)
[2020-05-17] MEDS ORDERED: INSU200I SC (16:11)
[2020-05-17] MEDS ORDERED: PANT40TA52 PO (16:11)
[2020-05-17] MEDS ORDERED: WARF10TA5 PO (16:11)
[2020-05-17] MEDS ORDERED: CYAN500T44 PO (16:11)
[2020-05-17] MEDS ORDERED: Folic Acid PO (16:11)
[2020-05-17] MEDS ORDERED: ASPI-1238 PO (16:11)
[2020-05-17] MEDS ORDERED: DEXA6TAB PO (16:11)
[2020-05-17] MEDS ORDERED: C,E,1CAP PO (16:11)
[2020-05-17 16:15] VITALS: BP 193/84
[2020-05-17] MEDS ORDERED: LIDOCAINE UROJET 2% GEL 10 ML PKG ONE ×2 (16:18→20:42)
--- NOTE | 2020-05-17 16:19 | NUR ---
PT HAD A MEDICATION LIST IN HIS WALLET THAT CHER ERWIN HELD UP TO THE GLASS DOOR IN CU1, I ALSO WENT THRU THE EXT MED HISTORY AND SPOKE WITH HIS (MARCIA) TO COMPLETE THE MED REC FUROSEMIDE 40MG- THE MED REC SHOWS A QTY #60/30DS HOWEVER ACCORDING TO THE PT HE JUST TAKES 1 TAB AT 1300 ALL OTHER MEDICATIONS MATCH THE EXT MED HISTORY OTC MEDS: ASPIRIN 81MG OCUVITE VIT B12 VIT D IRON LORATADINE
[2020-05-17] MEDS: ENOXAPARIN 60 MG/0.6 ML (LOVENOX) SYR SC SCH (16:51)
[2020-05-17 17:07] LABS: ABG BASE EXCESS -0.8 MMOL/L (-2.5-2.5); ABG OXYGEN SATURATION 92 % (94-100); ABG PCO2 40 MMHG (35-45); ABG PH 7.39 (7.37-7.43); ABG PO2 77 MMHG (79-93); ABG TCO2 24.6 MMOL/L (21.0-31.0)
[2020-05-17 17:24] LABS: ALLENS TEST YES-POS; INSPIRED O2 70%; VENTILATOR NO
[2020-05-17 17:25] LABS: PATIENT TEMP 99.5
[2020-05-17 17:36] LABS: BILIRUBIN,URINE NEGATIVE (NEGATIVE); CLARITY,URINE CLEAR; COLOR,URINE YELLOW; GLUCOSE, URINE (UA) NEGATIVE (NEGATIVE); KETONES,URINE NEGATIVE (NEGATIVE); LEUKOCYTE ESTERASE ,URINE NEGATIVE (NEGATIVE); NITRITE,URINE NEGATIVE (NEGATIVE); PH,URINE 6.5 (5-9); PROTEIN,URINE 2+ (NEGATIVE)
[2020-05-17 18:02] LABS: AMORPHOUS SEDIMENT,UR FEW AMOR URATES /LPF; BACTERIA,URINE NEGATIVE /HPF; RBC,URINE 0-2 /HPF
--- NOTE | 2020-05-17 20:27 | NUR ---
THIS RN AND MULTIPLE OTHER PLANT QUALITY MANAGER WAS UNABLE TO PLACE GUEVARA CATHETER AT THIS TIME. PT IS ABLE TO USE THE URINAL BUT ONLY WITH ASSISTANCE AND HAS INCONTINENCE.
--- NOTE | 2020-05-17 21:07 | NUR ---
conde catheter, 18 frisian coudet inserted by charlene baez sup
[2020-05-18 03:24] LABS: BASOPHILS % (AUTO) 0 % (0-10); EOSINOPHILS % (AUTO) 0 % (0-10); HEMATOCRIT 43 % (40-54); HEMOGLOBIN 14.2 g/dL (13.3-17.7); LYMPHOCYTES # (AUTO) 0.9 10^3/uL (1.0-4.0); LYMPHOCYTES % (AUTO) 10 % (12-44); MEAN CORPUSCULAR HEMOGLOBIN 31 pg (25-34); MEAN CORPUSCULAR HGB CONC 33 g/dL (32-36); MEAN CORPUSCULAR VOLUME 93 fL (80-99); MEAN PLATELET VOLUME 9.4 fL (9.0-12.2); MONOCYTES # (AUTO) 0.8 10^3/uL (0.0-1.0); MONOCYTES % (AUTO) 10 % (0-12); NEUTROPHILS # (AUTO) 6.7 10^3/uL (1.8-7.8); NEUTROPHILS % (AUTO) 78 % (42-75); PLATELET COUNT 192 10^3/uL (130-400); WHITE BLOOD COUNT 8.6 10^3/uL (4.3-11.0)
[2020-05-18 03:35] LABS: CHLORIDE 102 MMOL/L (98-107); POTASSIUM 4.2 MMOL/L (3.6-5.0); SODIUM 133 MMOL/L (135-145)
[2020-05-18 03:36] LABS: CALCIUM 8.5 MG/DL (8.5-10.1)
[2020-05-18 03:37] LABS: GLUCOSE 271 MG/DL (70-105)
[2020-05-18 03:38] LABS: CARBON DIOXIDE 18 MMOL/L (21-32)
[2020-05-18 03:41] LABS: BUN/CREATININE RATIO 29; CREATININE SERUM 1.01 MG/DL (0.60-1.30); GFR ESTIMATED > 60
[2020-05-18 03:43] LABS: MAGNESIUM 2.1 MG/DL (1.6-2.4)
--- NOTE | 2020-05-18 04:40 | Pulmonary Consultation ---
History of Present Illness History of Present Illness Time Seen by Provider: 04:35 Date of Admission Allergies and Home Medications Allergies Coded Allergies: No Known Drug Allergies (Verified , 09/11/07) Home Medications Allopurinol 100 Mg Tablet, 100 MG PO BID, (Reported) Aspirin 81 Mg Tablet.dr, 162 MG PO DAILY, (Reported) TAKES 2 (81MG) TABS C,E,Zinc,Copper 11/Uigkj8u/Lut 1 Each Capsule, 1 EACH PO DAILY, (Reported) Carvedilol 6.25 Mg Tablet, 6.25 MG PO BID, (Reported) Celecoxib 200 Mg Capsule, 200 MG PO DAILY, (Reported) Cholecalciferol (Vitamin D3) 25 Mcg Capsule, 25 MCG PO DAILY, (Reported) Citalopram Hydrobromide 20 Mg Tablet, 20 MG PO HS, (Reported) Cyanocobalamin (Vitamin B-12) 500 Mcg Tablet, 500 MCG PO DAILY, (Reported) Dexamethasone 6 Mg Tablet, 6 MG PO DAILY, (Reported) FILLED 05-11-2020 #10 Diltiazem HCl 240 Mg Cap.er.24h, 240 MG PO DAILY, (Reported) Ferrous Sulfate 325 Mg Tablet, 325 MG PO DAILY, (Reported) Finasteride 5 Mg Tablet, 5 MG PO DAILY, (Reported) Fluticasone/Salmeterol 12 Gm Hfa.aer.ad, 2 PUFF INH BID, (Reported) Furosemide 40 Mg Tablet, 40 MG PO 1300, (Reported) Insulin Glargine,Hum.rec.anlog 300 Unit/1 Ml Insuln.pen, 145 UNIT SQ AM, (R eported) Insulin Glargine,Hum.rec.anlog 300 Unit/1 Ml Insuln.pen, 185 UNIT SQ HS, (Reported) Insulin Lispro 100 Unit/1 Ml Cartridge, 30 UNIT SQ NOON, (Reported) Isosorbide Mononitrate 30 Mg Tab.er.24h, 30 MG PO DAILY, (Reported) Loratadine 10 Mg Tablet, 10 MG PO DAILY, (Reported) Pantoprazole Sodium 40 Mg Tablet.dr, 40 MG PO DAILY, (Reported) Potassium Chloride 20 Meq Tab.er.prt, 20 MEQ PO DAILY, (Reported) Pravastatin Sodium 40 Mg Tablet, 40 MG PO HS, (Reported) Tamsulosin HCl 0.4 Mg Cap, 0.4 MG PO BID, (Reported) Warfarin Sodium 10 Mg Tablet, 10 MG PO SUN,,WE,FR,SA, (Reported) TAKES 10MG SAT,E,SAT,SAT,SAT TAKES 5 MG (1/2 OF A 10MG) ON SAT & MARISEL Warfarin Sodium 10 Mg Tablet, 5 MG PO SAT,, (Reported) TAKES 10MG SUN,TUE,SAT,FRI,SAT TAKES 5 MG (1/2 OF A 10MG) ON SAT & SAT [Folic Acid] , 1 MG PO DAILY, (Reported) Past Gfgtpld-Qnhclk-Qnvrmg Hx Past Med/Social Hx: Reviewed Nursing Past Med/Soc Hx Patient Social History Alcohol Use: Denies Use Recreational Drug Use: No Smoking Status: Never a Smoker Recent Foreign Travel: No Contact w/Someone Who Travel: No Recent Infectious Disease Expo: Yes Recent Hopitalizations: No Physical Abuse: No Sexual Abuse: No Immunizations Up To Date Tetanus Booster (TDap): More than 5yrs Date of Pneumonia Vaccine: Jul 08, 2017 Date of Influenza Vaccine: Apr 07, 2017 Seasonal Allergies Seasonal Allergies: Yes Past Medical History Surgeries: Yes (CARDIAC CATH--RCA STENT) Cardiac, Coronary Stent, Eye Surgery, Gallbladder Respiratory: Yes (REFUSED TO COMPLETE SLEEP STUDY) Pneumonia, Sleep Apnea Cardiac: Yes (STENT x1) Atrial Fibrillation, Chronic Edema/Swelling, High Cholesterol, Hypertension Neurological: No Reproductive Disorders: No Genitourinary: Yes (POOR URINARY CONTROL) Gastrointestinal: No Musculoskeletal: Yes Arthritis Endocrine: Yes (MORBID OBESITY) Diabetes, Insulin dep HEENT: Yes (r ) Hearing Impairment: Hard of Hearing, Bilateral Hearing Aide Cancer: No Psychosocial: Yes Anxiety, Depression Integumentary: Yes (CELLULITIS LOWER LEGS--CHRONIC STASIS DERMATITIS) Blood Disorders: No Adverse Reaction/Blood Tranf: No Family Medical History Reviewed Nursing Family Hx Review of Systems Time Seen by Provider: 04:41 Sepsis Event Evaluation Height, Weight, BMI Height: 5'9.00" Weight: 280lbs. 0.0oz. 127.486825ee; 56.00 BMI Method:Stated Exam Exam Vital Signs Date Time Temp Pulse Resp B/P (MAP) Pulse Ox O2 Delivery O2 Flow Rate FiO2 05/18/20 04:00 35.7 05/18/20 01:39 94 Vapotherm 25.00 70 05/18/20 01:00 53 05/18/20 00:00 36.2 05/18/20 00:00 94 Vapotherm 25.00 70 05/17/20 21:06 36.4 05/17/20 20:00 93 Vapotherm 25.00 70 05/17/20 19:00 74 05/17/20 18:37 93 Vapotherm 25.00 70 05/17/20 18:00 79 34 141/105 96 Vapotherm 25.00 70.00 05/17/20 16:45 66 17 192/89 92 Vapotherm 25.00 70.00 05/17/20 16:00 69 16 168/77 93 Vapotherm 25.00 70.00 05/17/20 15:00 65 23 159/81 94 Vapotherm 25.00 70.00 05/17/20 14:03 77 05/17/20 14:00 73 9 159/81 96 Vapotherm 25.00 70.00 05/17/20 14:00 Vapotherm 25.00 70 05/17/20 13:46 97 Vapotherm 25.00 80 05/17/20 13:44 92 15 178/89 (109) 93 OxyMask 10.00 05/17/20 13:30 74 26 106/87 89 Vapotherm 25.00 70.00 05/17/20 10:10 38.0 77 36 177/76 (109) 94 OxyMask 6.00 05/17/20 10:10 92 OxyMask 10.00 I & O 05/18/20 07:00 Intake Total 1370 ml Output Total 1850 ml Balance -480 ml Height & Weight Height: 5'9.00" Weight: 280lbs. 0.0oz. 127.679076ja; 56.00 BMI Method:Stated General Appearance: No Apparent Distress, WD/WN HEENT: PERRL/EOMI, Other (Mucous membranes dry) Neck: Non Tender, Supple Respiratory: Crackles, Decreased Breath Sounds, Expiration Cardiovascular: Regular Rate, Rhythm, No Murmur Capillary Refill: Less Than 3 Seconds Extremity: Normal Range of Motion, Non Tender, Pedal Edema (2+ bilateral lower extremities) Neurologic/Psychiatric: Alert, Oriented x3, Motor Weakness (Global) Results Lab Laboratory Tests 05/17/20 10:25 05/18/20 03:05 Assessment/Plan Assessment/Plan COVID PNA -Remdesivir -CVP -Decadron NSTEMI secondary to hypoxia -Denies CP GI/DVT ppx KEYANA MARLOW DO May 18, 2020 04:40
[2020-05-18] MEDS: ENOXAPARIN 60 MG/0.6 ML (LOVENOX) SYR SC SCH ×2 (05:41→17:13)
[2020-05-18] MEDS ORDERED: POTASSIUM CL 10MEQ/50ML IVPB 50 ML IV SCH (06:00)
[2020-05-18] MEDS ORDERED: MAGNESIUM 1 GM/100 ML IVPB 100 ML IV SCH (06:00)
[2020-05-18] MEDS ORDERED: KCL 20 MEQ TAB (K-DUR) PO SCH (06:00)
--- NOTE | 2020-05-18 07:12 | Pulmonary Consultation ---
History of Present Illness History of Present Illness Date Seen by Provider: May 18, 2020 Time Seen by Provider: 07:09 Date of Admission Allergies and Home Medications Allergies Coded Allergies: No Known Drug Allergies (Verified , 09/11/07) Home Medications Allopurinol 100 Mg Tablet, 100 MG PO BID, (Reported) Aspirin 81 Mg Tablet.dr, 162 MG PO DAILY, (Reported) TAKES 2 (81MG) TABS C,E,Zinc,Copper 11/Mkhuu6p/Lut 1 Each Capsule, 1 EACH PO DAILY, (Reported) Carvedilol 6.25 Mg Tablet, 6.25 MG PO BID, (Reported) Celecoxib 200 Mg Capsule, 200 MG PO DAILY, (Reported) Cholecalciferol (Vitamin D3) 25 Mcg Capsule, 25 MCG PO DAILY, (Reported) Citalopram Hydrobromide 20 Mg Tablet, 20 MG PO HS, (Reported) Cyanocobalamin (Vitamin B-12) 500 Mcg Tablet, 500 MCG PO DAILY, (Reported) Dexamethasone 6 Mg Tablet, 6 MG PO DAILY, (Reported) FILLED 05-11-2020 #10 Diltiazem HCl 240 Mg Cap.er.24h, 240 MG PO DAILY, (Reported) Ferrous Sulfate 325 Mg Tablet, 325 MG PO DAILY, (Reported) Finasteride 5 Mg Tablet, 5 MG PO DAILY, (Reported) Fluticasone/Salmeterol 12 Gm Hfa.aer.ad, 2 PUFF INH BID, (Reported) Furosemide 40 Mg Tablet, 40 MG PO 1300, (Reported) Insulin Glargine,Hum.rec.anlog 300 Unit/1 Ml Insuln.pen, 145 UNIT SQ AM, (Reported) Insulin Glargine,Hum.rec.anlog 300 Unit/1 Ml Insuln.pen, 185 UNIT SQ HS, (Reported) Insulin Lispro 100 Unit/1 Ml Cartridge, 30 UNIT SQ NOON, (Reported) Isosorbide Mononitrate 30 Mg Tab.er.24h, 30 MG PO DAILY, (Reported) Loratadine 10 Mg Tablet, 10 MG PO DAILY, (Reported) Pantoprazole Sodium 40 Mg Tablet.dr, 40 MG PO DAILY, (Reported) Potassium Chloride 20 Meq Tab.er.prt, 20 MEQ PO DAILY, (Reported) Pravastatin Sodium 40 Mg Tablet, 40 MG PO HS, (Reported) Tamsulosin HCl 0.4 Mg Cap, 0.4 MG PO BID, (Reported) Warfarin Sodium 10 Mg Tablet, 10 MG PO SUN,,WE,FR,SA, (Reported) TAKES 10MG SAT,E,SAT,SAT,SAT TAKES 5 MG (1/2 OF A 10MG) ON SAT & SAT Warfarin Sodium 10 Mg Tablet, 5 MG PO SAT,, (Reported) TAKES 10MG SUN,TUE,SAT,SAT,SAT TAKES 5 MG (1/2 OF A 10MG) ON SAT & SAT [Folic Acid] , 1 MG PO DAILY, (Reported) Past Gyusfin-Fqhpcr-Qfpoht Hx Past Med/Social Hx: Reviewed Nursing Past Med/Soc Hx Patient Social History Alcohol Use: Denies Use Recreational Drug Use: No Smoking Status: Never a Smoker Recent Foreign Travel: No Contact w/Someone Who Travel: No Recent Infectious Disease Expo: Yes Recent Hopitalizations: No Physical Abuse: No Sexual Abuse: No Immunizations Up To Date Tetanus Booster (TDap): More than 5yrs Date of Pneumonia Vaccine: Jul 08, 2017 Date of Influenza Vaccine: Apr 07, 2017 Seasonal Allergies Seasonal Allergies: Yes Past Medical History Surgeries: Yes (CARDIAC CATH--RCA STENT) Cardiac, Coronary Stent, Eye Surgery, Gallbladder Respiratory: Yes (REFUSED TO COMPLETE SLEEP STUDY) Pneumonia, Sleep Apnea Cardiac: Yes (STENT x1) Atrial Fibrillation, Chronic Edema/Swelling, High Cholesterol, Hypertension Neurological: No Reproductive Disorders: No Genitourinary: Yes (POOR URINARY CONTROL) Gastrointestinal: No Musculoskeletal: Yes Arthritis Endocrine: Yes (MORBID OBESITY) Diabetes, Insulin dep HEENT: Yes (r ) Hearing Impairment: Hard of Hearing, Bilateral Hearing Aide Cancer: No Psychosocial: Yes Anxiety, Depression Integumentary: Yes (CELLULITIS LOWER LEGS--CHRONIC STASIS DERMATITIS) Blood Disorders: No Adverse Reaction/Blood Tranf: No Family Medical History Reviewed Nursing Family Hx Sepsis Event Evaluation Height, Weight, BMI Height: 5'9.00" Weight: 280lbs. 0.0oz. 127.702553wt; 56.00 BMI Method:Stated Exam Exam Vital Signs Date Time Temp Pulse Resp B/P (MAP) Pulse Ox O2 Delivery O2 Flow Rate FiO2 05/18/20 05:00 61 21 182/84 93 Vapotherm 25.00 70.00 05/18/20 04:00 48 17 167/77 95 Vapotherm 25.00 70.00 05/18/20 04:00 35.7 05/18/20 03:00 60 13 172/73 92 Vapotherm 25.00 70.00 05/18/20 02:00 50 18 176/73 94 Vapotherm 25.00 70.00 05/18/20 01:39 94 Vapotherm 25.00 70 05/18/20 01:00 53 25 179/71 94 Vapotherm 25.00 70.00 05/18/20 01:00 53 05/18/20 00:00 55 18 172/73 93 Vapotherm 25.00 70.00 05/18/20 00:00 36.2 05/18/20 00:00 94 Vapotherm 25.00 70 05/17/20 23:00 53 17 177/71 94 Vapotherm 25.00 70.00 05/17/20 22:00 59 36 181/80 93 Vapotherm 25.00 70.00 05/17/20 21:06 36.4 05/17/20 21:00 68 16 165/76 91 Vapotherm 25.00 70.00 05/17/20 20:00 93 Vapotherm 25.00 70 05/17/20 20:00 60 20 186/99 Vapotherm 25.00 70.00 05/17/20 19:00 74 16 197/93 93 Vapotherm 25.00 70.00 05/17/20 19:00 74 05/17/20 18:37 93 Vapotherm 25.00 70 05/17/20 18:00 79 34 141/105 96 Vapotherm 25.00 70.00 05/17/20 16:45 66 17 192/89 92 Vapotherm 25.00 70.00 05/17/20 16:00 69 16 168/77 93 Vapotherm 25.00 70.00 05/17/20 15:00 65 23 159/81 94 Vapotherm 25.00 70.00 05/17/20 14:03 77 05/17/20 14:00 73 9 159/81 96 Vapotherm 25.00 70.00 05/17/20 14:00 Vapotherm 25.00 70 05/17/20 13:46 97 Vapotherm 25.00 80 05/17/20 13:44 92 15 178/89 (109) 93 OxyMask 10.00 05/17/20 13:30 74 26 106/87 89 Vapotherm 25.00 70.00 05/17/20 10:10 38.0 77 36 177/76 (109) 94 OxyMask 6.00 05/17/20 10:10 92 OxyMask 10.00 I & O 05/18/20 07:00 Intake Total 2070 ml Output Total 2175 ml Balance -105 ml Height & Weight Height: 5'9.00" Weight: 280lbs. 0.0oz. 127.822553bc; 56.00 BMI Method:Stated General Appearance: No Apparent Distress, WD/WN HEENT: PERRL/EOMI, Other (Mucous membranes dry) Neck: Non Tender, Supple Respiratory: Crackles, Decreased Breath Sounds, Expiration Cardiovascular: Regular Rate, Rhythm, No Murmur Capillary Refill: Less Than 3 Seconds Extremity: Normal Range of Motion, Non Tender, Pedal Edema (2+ bilateral lower extremities) Neurologic/Psychiatric: Alert, Oriented x3, Motor Weakness (Global) Results Lab Laboratory Tests 05/17/20 10:25 05/18/20 03:05 Assessment/Plan Assessment/Plan Acute respiratory failure with ARDS secondary to COVID PNA -Remdesivir -CVP -Decadron Bipap PRN -Oxygen NSTEMI secondary to hypoxia -Denies CP Morbid obesity Hx of AFIB -Increase Lovenox to therapeutic dosing GI/DVT ppx KEYANA MARLOW DO May 18, 2020 07:12
[2020-05-18] MEDS: PANTOPRAZOLE 40 MG (PROTONIX) VIAL IV SCH (09:39)
[2020-05-18] MEDS: dexAMETHasone 6 MG TAB (DECADRON) PO SCH (09:39)
[2020-05-18] MEDS: inSUlin ASPART (NovoLOG) 1 UNIT/0.01 ML (CHARGE PER UNIT) SC SCH ×3 (12:29→21:21)
--- NOTE | 2020-05-18 13:20 | NUR ---
DR GIANG NOTIFIED OF INCREASED BP 182/70
--- NOTE | 2020-05-18 13:42 | NUR ---
DR MARLOW NOTIFIED OF BP 182/70
[2020-05-18] MEDS: REMDESIVIR INJ 100 MG in NS (IVPB) 230 ML IV SCH (14:36)
[2020-05-18] MEDS: hydrALAZINE (APESOLINE) 20 MG/ML VIAL IV PRN ×5 (14:36→23:56)
--- NOTE | 2020-05-18 17:29 | NUR ---
DR MARLOW NOTIFIED OF INCREASED BP 179/71. PT HAS PRN HYDRALZINE 10MG Q6 FOR SYS > 160 LAST GIVEN AT 1436.
[2020-05-18] MEDS: meTOprolol TARTRATE 25 MG (LOPRESSOR) TABLET PO SCH (20:15)
[2020-05-18] MEDS ORDERED: guaiFENesin/DM (ROBITUSSIN DM) 10 ML UDC ONE (22:08)
[2020-05-18] MEDS ORDERED: MELATONIN 3 MG TABLET ONE (22:09)
[2020-05-18] MEDS: guaiFENesin/DM (ROBITUSSIN DM) 10 ML UDC PO PRN (22:14)
[2020-05-18] MEDS: MELATONIN 3 MG TABLET PO SCH (22:14)
[2020-05-19 04:59] LABS: BASOPHILS % (AUTO) 0 % (0-10); EOSINOPHILS % (AUTO) 0 % (0-10); HEMATOCRIT 44 % (40-54); HEMOGLOBIN 14.7 g/dL (13.3-17.7); LYMPHOCYTES # (AUTO) 1.3 10^3/uL (1.0-4.0); LYMPHOCYTES % (AUTO) 11 % (12-44); MEAN CORPUSCULAR HEMOGLOBIN 31 pg (25-34); MEAN CORPUSCULAR HGB CONC 34 g/dL (32-36); MEAN CORPUSCULAR VOLUME 93 fL (80-99); MEAN PLATELET VOLUME 9.5 fL (9.0-12.2); MONOCYTES # (AUTO) 1.2 10^3/uL (0.0-1.0); MONOCYTES % (AUTO) 10 % (0-12); NEUTROPHILS % (AUTO) 77 % (42-75); PLATELET COUNT 243 10^3/uL (130-400); WHITE BLOOD COUNT 11.7 10^3/uL (4.3-11.0)
[2020-05-19 05:23] LABS: CHLORIDE 102 MMOL/L (98-107); POTASSIUM 4.4 MMOL/L (3.6-5.0); SODIUM 133 MMOL/L (135-145)
[2020-05-19 05:24] LABS: CALCIUM 8.7 MG/DL (8.5-10.1); GLUCOSE 126 MG/DL (70-105)
--- NOTE | 2020-05-19 05:24 | Pulmonary Progress Note ---
Subjective Time Seen by a Provider: 05:23 Subjective/Events-last exam Pt is still requiring a lot of oxygen Sepsis Event Evaluation Height, Weight, BMI Height: 5'9.00" Weight: 280lbs. 0.0oz. 127.824367iw; 56.00 BMI Method:Stated Focused Exam Lactate Level 05/17/20 10:25: Lactic Acid Level 1.81 Exam Exam Vital Signs Date Time Temp Pulse Resp B/P (MAP) Pulse Ox O2 Delivery O2 Flow Rate FiO2 05/19/20 02:44 166/77 92 Vapotherm 25.00 70.00 05/19/20 01:00 70 05/19/20 00:40 159/68 05/18/20 23:56 36.6 70 20 196/80 93 Vapotherm 25.00 70.00 05/18/20 21:33 92 Vapotherm 25.00 70 05/18/20 21:00 Vapotherm 25.00 70 05/18/20 19:55 36.8 70 20 152/87 92 Vapotherm 25.00 70.00 05/18/20 19:52 36.8 70 20 152/87 92 Vapotherm 25.00 70.00 05/18/20 19:00 70 05/18/20 17:08 70 20 179/71 92 Vapotherm 25.00 70.00 05/18/20 16:09 90 Vapotherm 25.00 70 05/18/20 15:30 36.9 67 20 187/93 92 Vapotherm 25.00 70.00 05/18/20 12:32 69 20 182/70 Vapotherm 25.00 70.00 05/18/20 12:30 66 05/18/20 11:48 93 Vapotherm 25.00 70 05/18/20 09:46 36.4 61 20 167/76 Vapotherm 25.00 80.00 05/18/20 09:00 Vapotherm 25.00 70 05/18/20 07:12 62 05/18/20 06:30 93 Vapotherm 25.00 80 I & O 05/19/20 07:00 Intake Total 1700 ml Output Total 2400 ml Balance -700 ml Height & Weight Height: 5'9.00" Weight: 280lbs. 0.0oz. 127.569219ci; 56.00 BMI Method:Stated General Appearance: No Apparent Distress, WD/WN HEENT: PERRL/EOMI, Other (Mucous membranes dry) Neck: Non Tender, Supple Respiratory: Crackles, Decreased Breath Sounds, Expiration Cardiovascular: Regular Rate, Rhythm, No Murmur Capillary Refill: Less Than 3 Seconds Extremity: Normal Range of Motion, Non Tender, Pedal Edema (2+ bilateral lower extremities) Neurologic/Psychiatric: Alert, Oriented x3, Motor Weakness (Global) Results Lab Laboratory Tests 05/17/20 10:25 05/18/20 03:05 05/19/20 04:05 Assessment/Plan Assessment/Plan COVID PNA -Currently requiring vapotherm at 70% -Remdesivir -CVP -Repeat PCT, BNP , Lasix 40mg x 1 -Give 40 of lasix -Decadron NSTEMI secondary to hypoxia -Denies CP Hx of AFIB -Increase Lovenox to therapeutic dosing GI/DVT ppx KEYANA MARLOW DO May 19, 2020 05:24
[2020-05-19 05:26] LABS: CARBON DIOXIDE 19 MMOL/L (21-32)
[2020-05-19 05:28] LABS: CREATININE SERUM 1.12 MG/DL (0.60-1.30); GFR ESTIMATED > 60; PHOSPHORUS 3.2 MG/DL (2.3-4.7)
[2020-05-19 05:29] LABS: BUN/CREATININE RATIO 31
[2020-05-19 05:30] LABS: MAGNESIUM 2.1 MG/DL (1.6-2.4)
[2020-05-19] MEDS ORDERED: FUROSEMIDE 40 MG/4 ML INJ (LASIX) IVP ONE (05:30)
[2020-05-19] MEDS: inSUlin ASPART (NovoLOG) 1 UNIT/0.01 ML (CHARGE PER UNIT) SC SCH ×4 (05:48→20:15)
[2020-05-19] MEDS: ENOXAPARIN 60 MG/0.6 ML (LOVENOX) SYR SC SCH (05:48)
--- NOTE | 2020-05-19 07:45 | Diagnostic Imaging Report ---
Reason for examination: COVID positive, pneumonia. Upright AP portable chest was obtained and compared to 05/17/2020. Cardiac silhouette and mediastinal width are unchanged. Bilateral mixed interstitial and alveolar infiltrates with a basilar predominance. These infiltrates have slightly worsened. No effusion or pneumothorax. IMPRESSION: 1. Basilar predominant mixed interstitial and alveolar infiltrates, slightly worse as compared to the prior study. Report was faxed to [facility] by camilo at 7:44AM. Dictated by: Dictated on workstation # [id number]
[2020-05-19] MEDS: PANTOPRAZOLE 40 MG (PROTONIX) VIAL IV SCH (08:36)
[2020-05-19] MEDS: ACETAMINOPHEN 325 MG TABLET PO PRN (08:37)
[2020-05-19] MEDS: meTOprolol TARTRATE 25 MG (LOPRESSOR) TABLET PO SCH ×2 (08:37→20:10)
[2020-05-19] MEDS: dexAMETHasone 6 MG TAB (DECADRON) PO SCH (08:38)
[2020-05-19] MEDS ORDERED: KCL 20 MEQ TAB (K-DUR) PO ONE (09:00)
--- NOTE | 2020-05-19 15:20 | NUR ---
"RD ASSESSMENT PMHx: pneumonia; afib; hypercholesterolemia; HTN; DM PT INTERACTION: Note pt is currently in COVID isolation, per chart review. Note all diet information for nutrition assessment is per Monique RN, or per chart review. Monique states current appetite was poor this morning. Note avg PO intake 76% x1d, per chart review. Monique states no issues with nausea, vomiting, constipation, or diarrhea that she is aware of. Note no BM has been recorded, and pt not currently on bowel regimen per chart review. Note unable to determine recent wt hx, per chart review. Note unable to determine current level of DM management, and not unable to determine recent HbA1c, per chart review. ABNORMAL NUTRITION-RELATED LAB VALUES LOW: Na 133; HIGH: BUN 35; glu 126 Est. kcal needs: 8297-2647 kcal | 25-30 kcal/kg IBW, based on IBW of 72.7 kg (160#) Est. Pro needs: 73-87 g Pro | 1.0-1.2 g Pro/kg IBW PES STATEMENT: Given current PO intake, no nutrition diagnosis at this time (NO-1.1). INTERVENTION: Continue with current diet order of CHO 75g/m 0snack diet. Pt may benefit from more aggressive CHO restriction if blood glucose levels become elevated. Did not offer diet education on DM management, d/t COVID isolation. Will continue to follow and reassess as pt needs, intake, and status change. Luisa Valdivia, MS RD LD"
[2020-05-19] MEDS: REMDESIVIR INJ 100 MG in NS (IVPB) 230 ML IV SCH (15:36)
[2020-05-19] MEDS: guaiFENesin/DM (ROBITUSSIN DM) 10 ML UDC PO PRN (20:09)
[2020-05-19] MEDS: ENOXAPARIN 300 MG/3 ML (LOVENOX) MULTI-DOSE VIAL SQ SCH (20:10)
[2020-05-19] MEDS: MELATONIN 3 MG TABLET PO SCH (20:10)
--- NOTE | 2020-05-20 03:54 | Pulmonary Progress Note ---
Subjective Time Seen by a Provider: 03:54 Subjective/Events-last exam Pt is still requiring high amounts of oxygen. Now running fevers with rigors. Sepsis Event Evaluation Height, Weight, BMI Height: 5'9.00" Weight: 280lbs. 0.0oz. 127.870704kj; 56.00 BMI Method:Stated Focused Exam Lactate Level 05/17/20 10:25: Lactic Acid Level 1.81 Exam Exam Vital Signs Date Time Temp Pulse Resp B/P (MAP) Pulse Ox O2 Delivery O2 Flow Rate FiO2 05/20/20 01:00 60 05/20/20 00:01 36.0 64 163/58 90 Vapotherm 25.00 70.00 05/19/20 21:00 Vapotherm 25.00 70 05/19/20 20:58 87 Vapotherm 25.00 70 05/19/20 20:17 36.0 64 168/79 90 Vapotherm 25.00 70.00 05/19/20 19:00 60 05/19/20 16:00 36.8 64 18 171/69 89 05/19/20 12:18 65 05/19/20 12:00 38.1 63 22 144/71 91 Vapotherm 25.00 70.00 05/19/20 11:26 91 Vapotherm 25.00 70 05/19/20 09:37 37.8 05/19/20 09:00 Vapotherm 25.00 70 05/19/20 08:37 38.3 05/19/20 08:30 38.3 20 156/76 91 Vapotherm 25.00 70.00 05/19/20 08:10 92 Vapotherm 25.00 70 05/19/20 07:00 65 I & O 05/20/20 07:00 Intake Total 600 ml Output Total 2850 ml Balance -2250 ml Height & Weight Height: 5'9.00" Weight: 280lbs. 0.0oz. 127.608383wi; 56.00 BMI Method:Stated General Appearance: WD/WN, Anxious, Moderate Distress HEENT: PERRL/EOMI, Other (Mucous membranes dry) Neck: Non Tender, Supple Respiratory: Accessory Muscle Use, Crackles, Decreased Breath Sounds, Expiration, Respiratory Distress Cardiovascular: Regular Rate, Rhythm, No Murmur Capillary Refill: Less Than 3 Seconds Gastrointestinal: non tender, soft Extremity: Normal Range of Motion, Non Tender, Pedal Edema (2+ bilateral lower extremities) Neurologic/Psychiatric: Alert, Oriented x3, Motor Weakness (Global) Skin: Normal Color, Warm/Dry Lymphatic: No Adenopathy Results Lab Laboratory Tests 05/19/20 04:05 Assessment/Plan Assessment/Plan COVID PNA - Now running fever with rigors -Repeat Montez cultures -Transfer to ICU -Start Vanco and Zosyn -Repeat CXR, PCT, ;and LA -Currently requiring vapotherm at 70% -Remdesivir -CVP -Repeat PCT, BNP , Lasix 40mg x 1 -Give 40 of lasix -Decadron Hypogylcemia - Start D5LR NSTEMI secondary to hypoxia -Denies CP Hx of AFIB -Increase Lovenox to therapeutic dosing GI/DVT ppx KEYANA MARLOW DO May 20, 2020 03:54
[2020-05-20] MEDS: hydrALAZINE (APESOLINE) 20 MG/ML VIAL IV PRN (04:07)
--- NOTE | 2020-05-20 04:27 | NUR ---
sbp 187, hydralazine given iv
[2020-05-20 04:51] LABS: BASOPHILS % (AUTO) 0 % (0-10); EOSINOPHILS % (AUTO) 0 % (0-10); HEMATOCRIT 46 % (40-54); HEMOGLOBIN 15.2 g/dL (13.3-17.7); LYMPHOCYTES # (AUTO) 1.3 10^3/uL (1.0-4.0); LYMPHOCYTES % (AUTO) 11 % (12-44); MEAN CORPUSCULAR HEMOGLOBIN 31 pg (25-34); MEAN CORPUSCULAR HGB CONC 33 g/dL (32-36); MEAN CORPUSCULAR VOLUME 94 fL (80-99); MEAN PLATELET VOLUME 9.7 fL (9.0-12.2); MONOCYTES % (AUTO) 8 % (0-12); NEUTROPHILS # (AUTO) 9.8 10^3/uL (1.8-7.8); NEUTROPHILS % (AUTO) 80 % (42-75); PLATELET COUNT 251 10^3/uL (130-400); WHITE BLOOD COUNT 12.3 10^3/uL (4.3-11.0)
--- NOTE | 2020-05-20 05:07 | NUR ---
SBP REMAINS 187, DR MARLOW NOTIFIED. ORDERS TO GIVE METOPROLOL 0900 DOSE NOW
[2020-05-20 05:09] LABS: BUN/CREATININE RATIO 37; CALCIUM 8.5 MG/DL (8.5-10.1); CARBON DIOXIDE 21 MMOL/L (21-32); CHLORIDE 100 MMOL/L (98-107); CREATININE SERUM 0.94 MG/DL (0.60-1.30); GFR ESTIMATED > 60; MAGNESIUM 2.1 MG/DL (1.6-2.4); PHOSPHORUS 3.4 MG/DL (2.3-4.7); POTASSIUM 4.2 MMOL/L (3.6-5.0); SODIUM 134 MMOL/L (135-145)
[2020-05-20 05:24] LABS: GLUCOSE 57 MG/DL (70-105)
--- NOTE | 2020-05-20 05:25 | NUR ---
BLOOD GLUCOSE 57, OJ GIVEN
[2020-05-20] MEDS ORDERED: FUROSEMIDE 40 MG/4 ML INJ (LASIX) ONE (05:26)
[2020-05-20] MEDS ORDERED: FUROSEMIDE 40 MG/4 ML INJ (LASIX) IVP ONE (05:30)
[2020-05-20] MEDS: meTOprolol TARTRATE 25 MG (LOPRESSOR) TABLET PO SCH ×2 (05:34→20:23)
[2020-05-20] MEDS: inSUlin ASPART (NovoLOG) 1 UNIT/0.01 ML (CHARGE PER UNIT) SC SCH ×4 (06:06→22:08)
[2020-05-20] MEDS ORDERED: SALINE NASAL SPRAY (OCEAN) 45 ML BTL PRN (06:15)
--- NOTE | 2020-05-20 06:30 | NUR ---
PT FS NOW 87, C/O OF BEING COLD, TEMP 100.4, TYLENOL GIVEN. REQUESTING SOMETHING FOR PAIN, DR MARLOW NOTIFIED
[2020-05-20] MEDS: ACETAMINOPHEN 325 MG TABLET PO PRN (06:32)
[2020-05-20] MEDS ORDERED: NS (IVPB) 250 ML ONE (06:54)
[2020-05-20] MEDS ORDERED: VANCOMYCIN 1000 MG/VIAL ONE (06:54)
[2020-05-20] MEDS ORDERED: VANCOMYCIN INJECTION 1,000 MG in NS (IVPB) 250 ML IV SCH (07:00)
[2020-05-20] MEDS ORDERED: PHARMACY TO DOSE IV SCH (07:00)
[2020-05-20] MEDS: morphine INJ 4 MG/ML 1 ML (VIAL/SYRINGE) IVP PRN (07:02)
[2020-05-20] MEDS ORDERED: PIPERACILLIN/TAZO 4.5 GM/NS 100 ML IV NR ×2 (07:05)
--- NOTE | 2020-05-20 07:08 | NUR ---
dr sorensen in to see pt, orders given to move to icu. surveillance supervisor notified
--- NOTE | 2020-05-20 07:26 | NUR ---
PTD VANCOMYCIN LABS: SCR 0.95 PLAN: 74 YEAR OF MALE STARTED ON VANCOMYCIN. VANCOMYCIN 1 GRAM IV WAS PULLED/DOCUMENTED STARTED AT 0701, WE WILL GIVE AN EXTRA 1GRAM DOSE TO EQUAL 2GRAM LOADING DOSE. WE WILL START VANCOMYCIN 1,500MG IV Q12H (NEXT DOSE AT 2100). CHECK A TROUGH PRIOR TO 3RD DOSE (05/21 @ 0800) AND ADJUST IF NEEDED, MAY NEED TO DO A REPEAT LEVEL ONCE AT STEADY STATE.
--- NOTE | 2020-05-20 07:29 | NUR ---
notified of pt being moved to icu for closer observation
--- NOTE | 2020-05-20 07:30 | NUR ---
pt transferred from [id number] via chair to cu7 per dr sorensen's order. pt placed on monitors, vss. pt a&o. personal belongings moved w/ pt.
[2020-05-20] MEDS: D5 LR IV SOLUTION 1,000 ML IV SCH ×3 (07:59→20:17)
[2020-05-20] MEDS: PANTOPRAZOLE 40 MG (PROTONIX) VIAL IV SCH (07:59)
[2020-05-20] MEDS ORDERED: VANCOMYCIN 1 GM/NS 250 ML IVPB IV NR ×2 (08:00)
[2020-05-20] MEDS: dexAMETHasone 6 MG TAB (DECADRON) PO SCH (08:00)
[2020-05-20 08:11] LABS: BILIRUBIN,URINE NEGATIVE (NEGATIVE); CLARITY,URINE CLEAR; COLOR,URINE YELLOW; GLUCOSE, URINE (UA) NEGATIVE (NEGATIVE); KETONES,URINE NEGATIVE (NEGATIVE); LEUKOCYTE ESTERASE ,URINE TRACE (NEGATIVE); NITRITE,URINE NEGATIVE (NEGATIVE); PROTEIN,URINE NEGATIVE (NEGATIVE)
[2020-05-20 08:22] LABS: BACTERIA,URINE TRACE /HPF; SQUAMOUS EPITHELIAL CELL,UR RARE /HPF; WBC,URINE RARE /HPF
[2020-05-20 08:23] LABS: AMORPHOUS SEDIMENT,UR RARE AMOR URATES /LPF
--- NOTE | 2020-05-20 08:35 | Diagnostic Imaging Report ---
INDICATION: Shortness of breath. Frontal chest obtained at 0755 a.m. and is compared to yesterday. There is cardiomegaly. There is extensive bilateral infiltrate which has shown significant worsening compared to yesterday. There is no pneumothorax or gross pleural fluid. IMPRESSION: Extensive worsening of bilateral infiltrates compared to yesterday. Underlying cardiomegaly. Dictated by: Dictated on workstation # [id number]
[2020-05-20] MEDS ORDERED: KCL 20 MEQ TAB (K-DUR) PO ONE (09:00)
[2020-05-20] MEDS: DOCUSATE SODIUM 100 MG (COLACE) CAP PO SCH ×2 (09:02→20:23)
[2020-05-20] MEDS: ENOXAPARIN 300 MG/3 ML (LOVENOX) MULTI-DOSE VIAL SQ SCH ×2 (09:02→20:23)
--- NOTE | 2020-05-20 12:45 | Diagnostic Imaging Report ---
INDICATION: PICC line placement. EXAMINATION: Frontal chest obtained at 12:29 p.m. and compared to 07:55 a.m. the same day. FINDINGS: There is mild cardiomegaly. There are extensive patchy bilateral infiltrates compatible with atypical pneumonia. There is no pneumothorax or pleural fluid. There is a PICC line on the left side, it appears to be entering the cephalic vein and then passing retrograde in the axillary vein, with this tip eventually passing to the proximal portion of the left subclavian vein. IMPRESSION: Left-sided PICC line is seen which appears to be entering the cephalic vein and then passes retrograde into the left axillary vein where it is looped, and then has its tip in the left subclavian vein. Suggest repositioning and reimaging. Diffuse infiltrates are unchanged compared to earlier today. Dictated by: Dictated on workstation # [id number]
[2020-05-20] MEDS: PIPERACILLIN/TAZOBACTAM (BULK) 4.5 GM in NS (IVPB) 100 ML IV SCH ×2 (13:16→20:17)
--- NOTE | 2020-05-20 13:59 | Diagnostic Imaging Report ---
INDICATION: PICC line adjustment. Time of exam 1:42 PM Correlation is made with prior study from earlier the same day. The PICC line continues to be malpositioned. The PICC line appears to be extending retrograde at the level of the axilla and to the axillary vein. The PICC line is looped upon itself within the axillary vein with tip directed antegrade. Diffuse bilateral patchy airspace pulmonary infiltrates persist. The heart is enlarged. There is no effusion or pneumothorax. IMPRESSION: Continued malpositioned left upper extremity PICC line. Dictated by: Dictated on workstation # [id number]
[2020-05-20] MEDS: REMDESIVIR INJ 100 MG in NS (IVPB) 230 ML IV SCH (14:52)
--- NOTE | 2020-05-20 15:03 | NUR ---
left arm picc line d/c'd per farhat picc rn.
--- NOTE | 2020-05-20 17:09 | NUR ---
During care rounds, it was noted that pt's avg PO intake was 61% x2d. Add Glucerna (vary) to meals TID, for increased kcal intake. Provides 220 kcal and 10 g Pro per serving. Will continue to follow and reassess as pt needs, intake, and status change. Luisa Valdivia, MS RD LD
[2020-05-20] MEDS: VANCOMYCIN 1500 MG/NS 500 ML IVPB IV SCH ×2 (20:17)
[2020-05-20] MEDS: MELATONIN 3 MG TABLET PO SCH (20:23)
[2020-05-20] MEDS: guaiFENesin/DM (ROBITUSSIN DM) 10 ML UDC PO PRN (20:29)
--- NOTE | 2020-05-20 22:42 | NUR ---
TeleICU notified of pt's respiratory status, and home dose of advair. Orders received.
[2020-05-21] MEDS: hydrALAZINE (APESOLINE) 20 MG/ML VIAL IV PRN ×2 (01:34→16:46)
[2020-05-21] MEDS ORDERED: RT-ALBUTEROL/IPRATROPIUM 3 ML (DUONEB) VIAL INH SCH (02:00)
--- NOTE | 2020-05-21 04:42 | Pulmonary Progress Note ---
Subjective Time Seen by a Provider: 04:38 Subjective/Events-last exam Pt is requiring 100% Vapotherm. Sepsis Event Evaluation Height, Weight, BMI Height: 5'9.00" Weight: 280lbs. 0.0oz. 127.323454su; 56.00 BMI Method:Stated Focused Exam Lactate Level 05/20/20 07:45: Lactic Acid Level 1.43 Exam Exam Vital Signs Date Time Temp Pulse Resp B/P (MAP) Pulse Ox O2 Delivery O2 Flow Rate FiO2 05/21/20 03:00 61 26 180/87 88 Vapotherm 40.00 100.00 05/21/20 02:58 Vapotherm 40.00 100 05/21/20 02:00 63 18 171/78 87 Vapotherm 40.00 100.00 05/21/20 01:00 55 05/21/20 01:00 55 22 163/93 89 Vapotherm 40.00 100.00 05/21/20 00:07 37.0 05/21/20 00:00 53 21 186/78 92 Vapotherm 40.00 100.00 05/20/20 23:00 53 21 189/95 91 Vapotherm 40.00 100.00 05/20/20 22:00 57 22 192/97 95 Vapotherm 40.00 100.00 05/20/20 21:00 58 19 189/90 92 Vapotherm 40.00 100.00 05/20/20 21:00 Vapotherm 40.00 100 05/20/20 20:47 91 Vapotherm 40.00 100 05/20/20 20:00 58 20 207/97 87 Vapotherm 40.00 100.00 05/20/20 20:00 37.0 05/20/20 19:00 58 20 180/104 91 Vapotherm 40.00 100.00 05/20/20 19:00 60 05/20/20 16:00 58 195/68 93 Vapotherm 40.00 100.00 05/20/20 15:01 36.6 05/20/20 14:59 94 Vapotherm 40.00 100 05/20/20 13:14 63 05/20/20 12:00 60 167/86 95 Vapotherm 40.00 100.00 05/20/20 11:32 37.2 05/20/20 10:05 Vapotherm 40.00 100.00 05/20/20 10:00 96 Vapotherm 40.00 100 05/20/20 09:09 Vapotherm 35.00 75.00 05/20/20 09:00 Vapotherm 25.00 75 05/20/20 08:08 Vapotherm 25.00 75.00 05/20/20 08:01 69 05/20/20 08:00 69 17 182/66 94 Vapotherm 25.00 70.00 05/20/20 07:56 37.5 I & O 05/21/20 07:00 Intake Total 3775 ml Output Total 3725 ml Balance 50 ml Height & Weight Height: 5'9.00" Weight: 280lbs. 0.0oz. 127.037717xy; 56.00 BMI Method:Stated General Appearance: WD/WN, Anxious, Moderate Distress HEENT: PERRL/EOMI, Other (Mucous membranes dry) Neck: Non Tender, Supple Respiratory: Accessory Muscle Use, Crackles, Decreased Breath Sounds, Expiration, Respiratory Distress Cardiovascular: Regular Rate, Rhythm, No Murmur Capillary Refill: Less Than 3 Seconds Gastrointestinal: non tender, soft Extremity: Normal Range of Motion, Non Tender, Pedal Edema (2+ bilateral lower extremities) Neurologic/Psychiatric: Alert, Oriented x3, Motor Weakness (Global) Skin: Normal Color, Warm/Dry Lymphatic: No Adenopathy Results Lab Laboratory Tests 05/20/20 04:00 Assessment/Plan Assessment/Plan COVID PNA - Now running fever with rigors -Repeat Montez cultures -Transfer to ICU -Give 80mg of IV Lasix -Currently on Vapotherm 100% -Will order BiPAP -Check ABG -Vanco and Zosyn -Repeat CXR, PCT, ;and LA -Currently requiring vapotherm at 70% -Remdesivir -CVP -Repeat PCT, BNP , Lasix 40mg x 1 -Give 40 of lasix -Decadron Hypogylcemia - Start D5LR NSTEMI secondary to hypoxia -Denies CP Hx of AFIB -Increase Lovenox to therapeutic dosing GI/DVT ppx Discussed with family ( and sister) current medical condition. PT is requiring 100% Vapotherm and has no respiratory reserve. I explained all options and answered all questions to the best of my ability. Family will call back to let us know if they are ok with intubation. UPDATE: called back and said they are ok for short term intubation however No CODE , NO chest compressions. Critical Care: Critically Ill Patient Time spent with patient (mins): 60 KEYANA MARLOW DO May 21, 2020 04:42
[2020-05-21] MEDS ORDERED: FUROSEMIDE 40 MG/4 ML INJ (LASIX) IVP ONE (04:45)
[2020-05-21] MEDS: PIPERACILLIN/TAZOBACTAM (BULK) 4.5 GM in NS (IVPB) 100 ML IV SCH ×3 (05:11→20:03)
[2020-05-21] MEDS: D5 LR IV SOLUTION 1,000 ML IV SCH (05:11)
[2020-05-21] MEDS: inSUlin ASPART (NovoLOG) 1 UNIT/0.01 ML (CHARGE PER UNIT) SC SCH ×4 (05:13→21:52)
[2020-05-21] MEDS: POTASSIUM CL 10MEQ/50ML IVPB 50 ML IV SCH ×2 (05:15→07:24)
[2020-05-21 05:31] LABS: ABG BASE EXCESS -0.7 MMOL/L (-2.5-2.5); ABG OXYGEN SATURATION 93 % (94-100); ABG PCO2 34 MMHG (35-45); ABG PH 7.44 (7.37-7.43); ABG PO2 72 MMHG (79-93); ABG TCO2 23.8 MMOL/L (21.0-31.0)
[2020-05-21 05:32] LABS: INSPIRED O2 40L; PATIENT TEMP 37.5; VENTILATOR NO
[2020-05-21 05:48] LABS: BASOPHILS % (AUTO) 0 % (0-10); EOSINOPHILS % (AUTO) 0 % (0-10); HEMATOCRIT 47 % (40-54); HEMOGLOBIN 15.8 g/dL (13.3-17.7); LYMPHOCYTES # (AUTO) 1.2 10^3/uL (1.0-4.0); LYMPHOCYTES % (AUTO) 7 % (12-44); MEAN CORPUSCULAR HEMOGLOBIN 32 pg (25-34); MEAN CORPUSCULAR HGB CONC 34 g/dL (32-36); MEAN CORPUSCULAR VOLUME 93 fL (80-99); MEAN PLATELET VOLUME 9.2 fL (9.0-12.2); MONOCYTES # (AUTO) 1.3 10^3/uL (0.0-1.0); MONOCYTES % (AUTO) 8 % (0-12); NEUTROPHILS # (AUTO) 13.9 10^3/uL (1.8-7.8); NEUTROPHILS % (AUTO) 83 % (42-75); PLATELET COUNT 271 10^3/uL (130-400); WHITE BLOOD COUNT 16.7 10^3/uL (4.3-11.0)
[2020-05-21 05:57] LABS: CHLORIDE 100 MMOL/L (98-107); POTASSIUM 4.4 MMOL/L (3.6-5.0); SODIUM 134 MMOL/L (135-145)
[2020-05-21 05:59] LABS: CALCIUM 8.7 MG/DL (8.5-10.1); GLUCOSE 108 MG/DL (70-105)
[2020-05-21 06:01] LABS: CARBON DIOXIDE 21 MMOL/L (21-32)
[2020-05-21 06:03] LABS: CREATININE SERUM 0.98 MG/DL (0.60-1.30); GFR ESTIMATED > 60; PHOSPHORUS 2.5 MG/DL (2.3-4.7)
[2020-05-21 06:04] LABS: BUN/CREATININE RATIO 31
[2020-05-21 06:05] LABS: MAGNESIUM 2.1 MG/DL (1.6-2.4)
[2020-05-21 06:13] LABS: BAND NEUTROPHILS 1 %; EOSINOPHILS % (MANUAL) 2 %; LYMPHOCYTES % (MANUAL) 8 %; MONOCYTES % (MANUAL) 5 %; NEUTROPHILS % (MANUAL) 84 %; RBC MORPH NORMAL
[2020-05-21] MEDS: RT-ALBUTEROL INHALER HFA (VENTOLIN HFA) 18 GM IH SCH ×5 (06:42→22:56)
[2020-05-21 06:44] VITALS: BP 205/115
[2020-05-21] MEDS: morphine INJ 4 MG/ML 1 ML (VIAL/SYRINGE) IVP PRN ×2 (07:07→16:47)
[2020-05-21] MEDS ORDERED: DexMEDEtomidine PRE MIX 0 ML IV ONE (07:27)
[2020-05-21] MEDS: DexMEDEtomidine PRE MIX 100 ML IV SCH ×3 (07:39→14:27)
[2020-05-21] MEDS: dexAMETHasone 6 MG TAB (DECADRON) PO SCH (07:40)
[2020-05-21] MEDS: PANTOPRAZOLE 40 MG (PROTONIX) VIAL IV SCH (07:40)
[2020-05-21] MEDS: DOCUSATE SODIUM 100 MG (COLACE) CAP PO SCH ×2 (07:40→20:03)
[2020-05-21] MEDS: meTOprolol TARTRATE 25 MG (LOPRESSOR) TABLET PO SCH ×2 (07:40→20:03)
[2020-05-21] MEDS: VANCOMYCIN 1500 MG/NS 500 ML IVPB IV SCH ×2 (07:41)
[2020-05-21] MEDS: ENOXAPARIN 300 MG/3 ML (LOVENOX) MULTI-DOSE VIAL SQ SCH ×2 (07:41→20:03)
[2020-05-21] MEDS ORDERED: TROUGH ORDER-PHARMACY XX ONE (08:00)
--- NOTE | 2020-05-21 09:54 | NUR ---
Am vanco started but stopped at less than 1/4 bag stopped due to vanc trough of 26.
[2020-05-21 10:56] VITALS: BP 149/64
[2020-05-21] MEDS: REMDESIVIR INJ 100 MG in NS (IVPB) 230 ML IV SCH (14:27)
[2020-05-21 15:25] VITALS: BP 177/79
[2020-05-21] MEDS ORDERED: DEXMEDETOMIDINE PRE MIX IV SCH (17:15)
[2020-05-21] MEDS ORDERED: DEXMEDETOMIDINE IV ONE (17:31)
[2020-05-21 19:04] VITALS: BP 183/70
[2020-05-21] MEDS: MELATONIN 3 MG TABLET PO SCH (20:03)
[2020-05-21 22:57] VITALS: BP 177/77
[2020-05-22] MEDS: D5 LR IV SOLUTION 1,000 ML IV SCH ×2 (00:16→08:41)
[2020-05-22 03:23] VITALS: BP 174/128
[2020-05-22] MEDS: RT-ALBUTEROL INHALER HFA (VENTOLIN HFA) 18 GM IH SCH ×6 (03:23→22:03)
[2020-05-22 03:37] LABS: ABG BASE EXCESS -0.3 MMOL/L (-2.5-2.5); ABG OXYGEN SATURATION 95 % (94-100); ABG PCO2 34 MMHG (35-45); ABG PH 7.45 (7.37-7.43); ABG PO2 71 MMHG (79-93); ABG TCO2 24.7 MMOL/L (21.0-31.0); ALLENS TEST YES-POS; INSPIRED O2 85%; PATIENT TEMP 35.2; VENTILATOR NO
--- NOTE | 2020-05-22 04:07 | Pulmonary Progress Note ---
Subjective Time Seen by a Provider: 04:05 Subjective/Events-last exam Pt is still requiring BiPAP. Sepsis Event Evaluation Height, Weight, BMI Height: 5'9.00" Weight: 280lbs. 0.0oz. 127.619698bn; 56.00 BMI Method:Stated Focused Exam Lactate Level 05/20/20 07:45: Lactic Acid Level 1.43 Exam Exam Vital Signs Date Time Temp Pulse Resp B/P (MAP) Pulse Ox O2 Delivery O2 Flow Rate FiO2 05/22/20 03:23 46 22 94 85.00 05/22/20 03:00 45 21 157/78 93 NIV Bilevel 85.00 05/22/20 02:00 46 21 178/83 95 NIV Bilevel 85.00 05/22/20 01:00 45 20 186/89 96 NIV Bilevel 85.00 05/22/20 01:00 50 05/22/20 00:19 NIV Bilevel 85.00 05/22/20 00:00 46 25 132/63 93 NIV Bilevel 80.00 05/22/20 00:00 36.0 05/21/20 23:59 NIV Bilevel 80.00 05/21/20 23:00 47 30 179/83 94 NIV Bilevel 75.00 05/21/20 22:57 49 23 93 75.00 05/21/20 22:00 49 21 179/74 93 NIV Bilevel 75.00 05/21/20 21:00 52 31 178/82 93 NIV Bilevel 75.00 05/21/20 21:00 NIV Bilevel 75 05/21/20 20:14 NIV Bilevel 75.00 05/21/20 20:00 36.3 05/21/20 20:00 53 23 151/66 93 NIV Bilevel 65.00 05/21/20 19:42 NIV Bilevel 65.00 05/21/20 19:04 54 25 93 65.00 05/21/20 19:00 56 25 174/66 93 NIV Bilevel 65.00 05/21/20 19:00 60 05/21/20 18:00 58 23 171/66 94 NIV Bilevel 75.00 05/21/20 17:00 61 27 158/60 92 NIV Bilevel 75.00 05/21/20 16:00 37.6 05/21/20 16:00 60 27 186/86 95 NIV Bilevel 75.00 05/21/20 15:31 NIV Bilevel 75.00 05/21/20 15:25 60 28 96 85.00 05/21/20 15:00 62 27 177/79 95 NIV Bilevel 80.00 05/21/20 14:26 61 157/60 05/21/20 14:00 61 27 153/72 92 NIV Bilevel 80.00 05/21/20 13:00 63 26 150/66 91 NIV Bilevel 80.00 05/21/20 12:59 64 05/21/20 12:00 63 25 156/70 92 NIV Bilevel 80.00 05/21/20 11:41 37.6 05/21/20 11:00 63 31 171/72 93 NIV Bilevel 80.00 05/21/20 10:56 63 34 91 80.00 05/21/20 10:46 NIV Bilevel 80.00 05/21/20 09:00 67 23 93/78 93 NIV Bilevel 80.00 05/21/20 09:00 Vapotherm 40.00 100 05/21/20 08:00 67 26 164/73 89 Vapotherm 40.00 100.00 05/21/20 07:39 71 23 152/68 88 FIO2 100.00 05/21/20 07:00 78 26 152/68 91 Vapotherm 40.00 100.00 05/21/20 07:00 75 05/21/20 06:44 76 30 91 100.00 05/21/20 06:00 101 22 205/115 87 Vapotherm 40.00 100.00 05/21/20 05:14 37.5 05/21/20 05:00 65 28 215/108 88 Vapotherm 40.00 100.00 I & O 05/22/20 07:00 Intake Total 720 ml Output Total 4690 ml Balance -3970 ml Height & Weight Height: 5'9.00" Weight: 280lbs. 0.0oz. 127.588116am; 56.00 BMI Method:Stated General Appearance: WD/WN, Anxious, Moderate Distress HEENT: PERRL/EOMI, Other (Mucous membranes dry) Neck: Non Tender, Supple Respiratory: Accessory Muscle Use, Crackles, Decreased Breath Sounds, Expiration, Respiratory Distress Cardiovascular: Regular Rate, Rhythm, No Murmur Capillary Refill: Less Than 3 Seconds Gastrointestinal: non tender, soft Extremity: Normal Range of Motion, Non Tender, Pedal Edema (2+ bilateral lower extremities) Neurologic/Psychiatric: Alert, Oriented x3, Motor Weakness (Global) Skin: Normal Color, Warm/Dry Lymphatic: No Adenopathy Results Lab Laboratory Tests 05/21/20 05:30 Assessment/Plan Assessment/Plan COVID PNA - Now running fever with rigors -Repeat Montez cultures -Repeat CXR is pending -Transfer to ICU -Give 80mg of IV Lasix -Currently on Vapotherm 100% -Will order BiPAP -Check ABG -Vanco and Zosyn -Repeat CXR, PCT, ;and LA -Currently requiring vapotherm at 70% -Remdesivir -CVP -Repeat PCT, BNP , Lasix 40mg x 1 -Give 40 of lasix -Decadron Hypogylcemia - Start D5LR NSTEMI secondary to hypoxia -Denies CP Hx of AFIB -Increase Lovenox to therapeutic dosing GI/DVT ppx Discussed with family ( and sister) current medical condition. PT is requiring 100% Vapotherm and has no respiratory reserve. I explained all options and answered all questions to the best of my ability. Family will call back to let us know if they are ok with intubation. KEYANA MARLOW DO May 22, 2020 04:07
[2020-05-22] MEDS: PIPERACILLIN/TAZOBACTAM (BULK) 4.5 GM in NS (IVPB) 100 ML IV SCH ×3 (05:02→20:38)
[2020-05-22] MEDS: hydrALAZINE (APESOLINE) 20 MG/ML VIAL IV PRN (05:13)
[2020-05-22] MEDS ORDERED: DexMEDEtomidine PRE MIX 0 ML IV ONE (05:13)
[2020-05-22 05:21] LABS: BASOPHILS % (AUTO) 0 % (0-10); EOSINOPHILS % (AUTO) 0 % (0-10); HEMATOCRIT 46 % (40-54); HEMOGLOBIN 15.3 g/dL (13.3-17.7); LYMPHOCYTES # (AUTO) 0.9 10^3/uL (1.0-4.0); LYMPHOCYTES % (AUTO) 7 % (12-44); MEAN CORPUSCULAR HEMOGLOBIN 31 pg (25-34); MEAN CORPUSCULAR HGB CONC 33 g/dL (32-36); MEAN CORPUSCULAR VOLUME 94 fL (80-99); MEAN PLATELET VOLUME 9.4 fL (9.0-12.2); MONOCYTES # (AUTO) 0.5 10^3/uL (0.0-1.0); MONOCYTES % (AUTO) 4 % (0-12); NEUTROPHILS # (AUTO) 11.6 10^3/uL (1.8-7.8); NEUTROPHILS % (AUTO) 87 % (42-75); PLATELET COUNT 220 10^3/uL (130-400); WHITE BLOOD COUNT 13.2 10^3/uL (4.3-11.0)
[2020-05-22 05:34] LABS: CHLORIDE 101 MMOL/L (98-107); POTASSIUM 4.5 MMOL/L (3.6-5.0); SODIUM 136 MMOL/L (135-145)
[2020-05-22 05:35] LABS: CALCIUM 8.6 MG/DL (8.5-10.1)
[2020-05-22 05:36] LABS: GLUCOSE 143 MG/DL (70-105)
[2020-05-22 05:37] LABS: CARBON DIOXIDE 22 MMOL/L (21-32)
[2020-05-22 05:39] LABS: PHOSPHORUS 3.5 MG/DL (2.3-4.7)
[2020-05-22 05:40] LABS: CREATININE SERUM 0.92 MG/DL (0.60-1.30); GFR ESTIMATED > 60
[2020-05-22 05:41] LABS: BUN/CREATININE RATIO 32
[2020-05-22 05:42] LABS: MAGNESIUM 2.2 MG/DL (1.6-2.4)
[2020-05-22] MEDS: inSUlin ASPART (NovoLOG) 1 UNIT/0.01 ML (CHARGE PER UNIT) SC SCH ×4 (06:02→20:38)
[2020-05-22 07:02] VITALS: BP 165/74
[2020-05-22] MEDS: meTOprolol TARTRATE 25 MG (LOPRESSOR) TABLET PO SCH ×2 (07:28→20:38)
--- NOTE | 2020-05-22 07:53 | Diagnostic Imaging Report ---
INDICATION: Shortness of air COMPARISON STUDY: Chest from 2 days ago. FINDINGS: Frontal view of the chest demonstrates persistent diffuse bilateral pulmonary infiltrates. There has been little change. Heart size is within normal limits. IMPRESSION: Stable diffuse pulmonary infiltrates. Dictated by: Dictated on workstation # [id number]
[2020-05-22] MEDS: DOCUSATE SODIUM 100 MG (COLACE) CAP PO SCH ×2 (08:41→20:38)
[2020-05-22] MEDS: dexAMETHasone 6 MG TAB (DECADRON) PO SCH (08:41)
[2020-05-22] MEDS: PANTOPRAZOLE 40 MG (PROTONIX) VIAL IV SCH (08:41)
[2020-05-22] MEDS: ENOXAPARIN 300 MG/3 ML (LOVENOX) MULTI-DOSE VIAL SQ SCH (08:55)
[2020-05-22] MEDS: morphine INJ 4 MG/ML 1 ML (VIAL/SYRINGE) IVP PRN ×2 (08:56→20:46)
[2020-05-22] MEDS: guaiFENesin/DM (ROBITUSSIN DM) 10 ML UDC PO PRN (08:56)
[2020-05-22] MEDS: VANCOMYCIN 1500 MG/NS 500 ML IVPB IV SCH ×4 (11:40→23:17)
--- NOTE | 2020-05-22 17:33 | NUR ---
Shift Summary: Pt has remained Bipap dependent during shift. Pt has often become upset with staff stating "You don't care what happens to me. You have taken away everything from me." This RN as well as Dylon, RN and Esperanza, RN spoke with pt during shift to offer words of encouragement. Education provided to pt regarding necessity of Bipap and likelihood of intubation without bipap compliance. Pt verbalized understanding, but remains adamant that we are not caring for him appropriately. Pt often refuses position changes during shift. IV access remains limited due to poor vascular access. Orders received during shift for Central line placement, however, unable to obtain due to doses of lovenox in pt's system per Dr. Gamboa. VS have remained stable during shift with exception of O2 saturation decreasing during Bipap removal. Pt has remained on 85%Fio2 throughout shift. was able to speak with pt via phone during shift. Unable to successfully facetime during shift due to cell phone incapability. Will attempt other methods at a different time.
--- NOTE | 2020-05-22 20:20 | NUR ---
Jojo Gamboa and Ban contacted r/t potential central line placement tomorrow and lovenox dosing. Orders received to hold Lovenox tonight.
[2020-05-22] MEDS: MELATONIN 3 MG TABLET PO SCH (20:38)
--- NOTE | 2020-05-22 21:57 | Consultation - Surgery ---
History of Present Illness History of Present Illness Patient Consulted On(rich/time) 05/22/20 13:51 Date Seen by Provider: May 22, 2020 Time Seen by Provider: 13:51 History of Present Illness Consult requested by Dr. Cevallos for central line placement. Patient is a 74-year-old male with Covid pneumonia who currently is in the intensive care unit. Patient currently on BiPAP and does have peripheral IV access at this time. Patient having labored breathing slightly. It is requested that a central line be placed. Patient on BiPAP currently and difficult to communicate for him. Chart reviewed. Allergies and Home Medications Allergies Coded Allergies: No Known Drug Allergies (Verified , 09/11/07) Home Medications Allopurinol 100 Mg Tablet, 100 MG PO BID, (Reported) Aspirin 81 Mg Tablet.dr, 162 MG PO DAILY, (Reported) TAKES 2 (81MG) TABS C,E,Zinc,Copper 11/Bdeph8h/Lut 1 Each Capsule, 1 EACH PO DAILY, (Reported) Carvedilol 6.25 Mg Tablet, 6.25 MG PO BID, (Reported) Celecoxib 200 Mg Capsule, 200 MG PO DAILY, (Reported) Cholecalciferol (Vitamin D3) 25 Mcg Capsule, 25 MCG PO DAILY, (Reported) Citalopram Hydrobromide 20 Mg Tablet, 20 MG PO HS, (Reported) Cyanocobalamin (Vitamin B-12) 500 Mcg Tablet, 500 MCG PO DAILY, (Reported) Dexamethasone 6 Mg Tablet, 6 MG PO DAILY, (Reported) FILLED 05-11-2020 #10 Diltiazem HCl 240 Mg Cap.er.24h, 240 MG PO DAILY, (Reported) Ferrous Sulfate 325 Mg Tablet, 325 MG PO DAILY, (Reported) Finasteride 5 Mg Tablet, 5 MG PO DAILY, (Reported) Fluticasone/Salmeterol 12 Gm Hfa.aer.ad, 2 PUFF INH BID, (Reported) Furosemide 40 Mg Tablet, 40 MG PO 1300, (Reported) Insulin Glargine,Hum.rec.anlog 300 Unit/1 Ml Insuln.pen, 145 UNIT SQ AM, (Reported) Insulin Glargine,Hum.rec.anlog 300 Unit/1 Ml Insuln.pen, 185 UNIT SQ HS, (Reported) Insulin Lispro 100 Unit/1 Ml Cartridge, 30 UNIT SQ NOON, (Reported) Isosorbide Mononitrate 30 Mg Tab.er.24h, 30 MG PO DAILY, (Reported) Loratadine 10 Mg Tablet, 10 MG PO DAILY, (Reported) Pantoprazole Sodium 40 Mg Tablet.dr, 40 MG PO DAILY, (Reported) Potassium Chloride 20 Meq Tab.er.prt, 20 MEQ PO DAILY, (Reported) Pravastatin Sodium 40 Mg Tablet, 40 MG PO HS, (Reported) Tamsulosin HCl 0.4 Mg Cap, 0.4 MG PO BID, (Reported) Warfarin Sodium 10 Mg Tablet, 10 MG PO SUN,,WE,FR,SA, (Reported) TAKES 10MG SAT,SAT,SAT,SAT,SAT TAKES 5 MG (1/2 OF A 10MG) ON SAT & SAT Warfarin Sodium 10 Mg Tablet, 5 MG PO SAT,, (Reported) TAKES 10MG SUN,E,SAT,SAT,SAT TAKES 5 MG (1/2 OF A 10MG) ON SAT & SAT [Folic Acid] , 1 MG PO DAILY, (Reported) Patient Home Medication List Home Medication List Reviewed: Yes Past Jjguiui-Tvwlgm-Tonxgh Hx Patient Social History Alcohol Use: Denies Use Recreational Drug Use: No Smoking Status: Never a Smoker Recent Foreign Travel: No Contact w/Someone Who Travel: No Recent Infectious Disease Expo: Yes Recent Hopitalizations: No Immunizations Up To Date Tetanus Booster (TDap): More than 5yrs Date of Pneumonia Vaccine: Jul 08, 2017 Date of Influenza Vaccine: Apr 07, 2017 Seasonal Allergies Seasonal Allergies: Yes Surgeries History of Surgeries: Yes (CARDIAC CATH--RCA STENT) Surgeries: Cardiac, Coronary Stent, Eye Surgery, Gallbladder Respiratory History of Respiratory Disorde: Yes (REFUSED TO COMPLETE SLEEP STUDY) Respiratory Disorders: Pneumonia, Sleep Apnea Cardiovascular History of Cardiac Disorders: Yes (STENT x1) Cardiac Disorders: Atrial Fibrillation, Chronic Edema/Swelling, High Cholesterol, Hypertension Neurological History of Neurological Disord: No Reproductive System Hx Reproductive Disorders: No Genitourinary History of Genitourinary Disor: Yes (POOR URINARY CONTROL) Gastrointestinal History of Gastrointestinal Di: No Musculoskeletal History of Musculoskeletal Dis: Yes Musculoskeletal Disorders: Arthritis Endocrine History of Endocrine Disorders: Yes (MORBID OBESITY) Endocrine Disorders: Diabetes, Insulin dep HEENT History of HEENT Disorders: Yes (r ) Hearing Impairment: Hard of Hearing, Bilateral Hearing Aide Cancer History of Cancer: No Psychosocial History of Psychiatric Problem: Yes Behavioral Health Disorders: Anxiety, Depression Integumentary History of Skin or Integumenta: Yes (CELLULITIS LOWER LEGS--CHRONIC STASIS DERMATITIS) Blood Transfusions History of Blood Disorders: No Adverse Reaction to a Blood Tr: No Reviewed Nursing Assessment Reviewed/Agree w Nursing PMH: Yes Family Medical History Significant Family History: No Pertinent Family Hx Review of Systems-General ROS-Unable to Obtain: not obtained due to patient condition Physical Exam-General Problems Physical Exam Vital Signs Vital Signs - First Documented 05/17/20 05/17/20 10:10 13:46 Temp 38.0 Pulse 77 Resp 36 B/P (MAP) 177/76 (109) Pulse Ox 92 O2 Delivery OxyMask O2 Flow Rate 10.00 FiO2 80 Capillary Refill : Less Than 3 SecondsLess Than 3 Seconds General Appearance: mild distress, obese HEENT: PERRL/EOMI, other (bipap in place) Neck: non-tender, supple Respiratory: chest non-tender, other (slight labored breathing) Cardiovascular: irregularly irregular Gastrointestinal: non tender, soft, other (yeast appearance bilateral groins/skin folds) Rectal: deferred Back: no CVA tenderness, no vertebral tenderness Extremities: non-tender, other (chronic skin changes) Neurologic/Psychiatric: alert, oriented x 3 Skin: warm/dry, other (skin changes lower extremities) Lymphatic: no adenopathy Data Review Labs Laboratory Tests 05/21/20 21:52: Glucometer 148H 05/22/20 03:30: Blood Gas Puncture Site LEFT RADIAL, Blood Gas Patient Temperature 35.2, Arterial Blood pH 7.45H, Arterial Blood Partial Pressure CO2 34L, Arterial Blood Partial Pressure O2 71L, Arterial Blood HCO3 24, Arterial Blood Total CO2 24.7, Arterial Blood Oxygen Saturation 95, Arterial Blood Base Excess -0.3, Zoltan Test YES-POS, Blood Gas Ventilator Setting NO, Blood Gas Inspired Oxygen 85% 05/22/20 05:15: White Blood Count 13.2H, Red Blood Count 4.89, Hemoglobin 15.3, Hematocrit 46, Mean Corpuscular Volume 94, Mean Corpuscular Hemoglobin 31, Mean Corpuscular Hemoglobin Concent 33, Red Cell Distribution Width 13.2, Platelet Count 220, Mean Platelet Volume 9.4, Immature Granulocyte % (Auto) 1, Neutrophils (%) (Auto) 87H, Lymphocytes (%) (Auto) 7L, Monocytes (%) (Auto) 4, Eosinophils (%) (Auto) 0, Basophils (%) (Auto) 0, Neutrophils # (Auto) 11.6H, Lymphocytes # (Auto) 0.9L, Monocytes # (Auto) 0.5, Eosinophils # (Auto) 0.0, Basophils # (Auto) 0.0, Immature Granulocyte # (Auto) 0.2H, Sodium Level 136, Potassium Level 4.5, Chloride Level 101, Carbon Dioxide Level 22, Anion Gap 13, Blood Urea Nitrogen 29H, Creatinine 0.92, Estimat Glomerular Filtration Rate > 60, BUN/Creatinine Ratio 32, Glucose Level 143H, Calcium Level 8.6, Phosphorus Level 3.5, Magnesium Level 2.2 05/22/20 09:00: Vancomycin Level Trough 7.6L 05/22/20 10:21: Glucometer 120H 05/22/20 16:02: Glucometer 128H 05/22/20 20:36: Glucometer 175H Microbiology 05/21/20 Gram Stain - Final, Resulted 05/21/20 Sputum Culture - Preliminary, Resulted Usual upper respiratory ilsa 05/20/20 Blood Culture - Preliminary, Resulted No growth Assessment/Plan Assessment/Plan Assessment/Plan Covid pneumonia Atrial fibrillation Need for venous access Current anticoagulation Patient is a 74-year-old male which it has been requested that I place central line. Due to therapeutic anticoagulation would place in the groin however his groins currently with yeast burden bilateral therefore I do not feel it safe to place. Patient currently on anticoagulation. He does have peripheral access currently which is being used which I would recommend continuing to use this and attempt to have PICC line placed in the morning. If okay with Dr. Cevallos would hold anticoagulation in case PICC line not successful could place internal jugular vein central line. Patient understands and agrees with plan. If access fails will need central line prior to holding anticoagulation or PICC line patient understands would need to have placed with increased risk. Clinical Quality Measures DVT/VTE Risk/Contraindication: Risk Factor Score Per Nursin RFS Level Per Nursing on Admit: 4+=Very High ARNOLD MIN DO May 22, 2020 21:57
[2020-05-22 22:03] VITALS: BP 162/78
[2020-05-23 02:51] LABS: BASOPHILS % (AUTO) 0 % (0-10); EOSINOPHILS % (AUTO) 0 % (0-10); HEMATOCRIT 41 % (40-54); HEMOGLOBIN 13.8 g/dL (13.3-17.7); LYMPHOCYTES # (AUTO) 0.6 10^3/uL (1.0-4.0); LYMPHOCYTES % (AUTO) 5 % (12-44); MEAN CORPUSCULAR HEMOGLOBIN 31 pg (25-34); MEAN CORPUSCULAR HGB CONC 34 g/dL (32-36); MEAN CORPUSCULAR VOLUME 93 fL (80-99); MEAN PLATELET VOLUME 9.6 fL (9.0-12.2); MONOCYTES # (AUTO) 0.4 10^3/uL (0.0-1.0); MONOCYTES % (AUTO) 3 % (0-12); NEUTROPHILS # (AUTO) 10.5 10^3/uL (1.8-7.8); NEUTROPHILS % (AUTO) 91 % (42-75); PLATELET COUNT 223 10^3/uL (130-400); WHITE BLOOD COUNT 11.5 10^3/uL (4.3-11.0)
[2020-05-23 03:00] VITALS: BP 162/78
[2020-05-23 03:00] LABS: CHLORIDE 103 MMOL/L (98-107); POTASSIUM 4.1 MMOL/L (3.6-5.0); SODIUM 133 MMOL/L (135-145)
[2020-05-23 03:02] LABS: CALCIUM 8.3 MG/DL (8.5-10.1); GLUCOSE 211 MG/DL (70-105)
[2020-05-23 03:04] LABS: CARBON DIOXIDE 19 MMOL/L (21-32)
[2020-05-23 03:06] LABS: CREATININE SERUM 0.85 MG/DL (0.60-1.30); GFR ESTIMATED > 60; PHOSPHORUS 3.2 MG/DL (2.3-4.7)
[2020-05-23 03:07] LABS: BUN/CREATININE RATIO 39
[2020-05-23 03:08] LABS: MAGNESIUM 2.3 MG/DL (1.6-2.4)
[2020-05-23] MEDS ORDERED: DexMEDEtomidine PRE MIX 0 ML IV ONE (03:24)
[2020-05-23 03:40] LABS: ABG BASE EXCESS -3.3 MMOL/L (-2.5-2.5); ABG OXYGEN SATURATION 87 % (94-100); ABG PCO2 37 MMHG (35-45); ABG PH 7.37 (7.37-7.43); ABG PO2 57 MMHG (79-93); ABG TCO2 22.6 MMOL/L (21.0-31.0)
[2020-05-23 03:41] LABS: ALLENS TEST YES-POS; INSPIRED O2 100%; PATIENT TEMP 35.4; VENTILATOR NO
--- NOTE | 2020-05-23 04:12 | Pulmonary Progress Note ---
Subjective Time Seen by a Provider: 04:09 Subjective/Events-last exam Pt is now requiring 100% BiPAP. Sepsis Event Evaluation Height, Weight, BMI Height: 5'9.00" Weight: 280lbs. 0.0oz. 127.037980tf; 56.00 BMI Method:Stated Focused Exam Lactate Level 05/20/20 07:45: Lactic Acid Level 1.43 Exam Exam Vital Signs Date Time Temp Pulse Resp B/P (MAP) Pulse Ox O2 Delivery O2 Flow Rate FiO2 05/23/20 03:00 48 18 94 85.00 05/23/20 01:09 NIV Bilevel 100.00 05/22/20 23:00 49 17 162/78 93 NIV Bilevel 85.00 05/22/20 22:49 36.9 05/22/20 22:03 48 18 92 85.00 05/22/20 22:00 50 15 160/78 97 NIV Bilevel 85.00 05/22/20 21:00 NIV Bilevel 85 05/22/20 21:00 50 20 169/77 92 NIV Bilevel 85.00 05/22/20 20:08 36.5 05/22/20 20:00 52 21 158/75 92 NIV Bilevel 85.00 05/22/20 19:14 52 92 85.00 05/22/20 19:00 55 20 144/93 94 NIV Bilevel 85.00 05/22/20 19:00 55 05/22/20 18:00 52 11 163/77 92 NIV Bilevel 85.00 05/22/20 17:00 56 20 155/73 95 NIV Bilevel 85.00 05/22/20 16:03 36.4 05/22/20 16:00 57 21 164/77 94 NIV Bilevel 85.00 05/22/20 15:00 61 23 147/65 92 NIV Bilevel 85.00 05/22/20 14:39 59 26 93 85.00 05/22/20 14:00 63 20 130/78 97 NIV Bilevel 85.00 05/22/20 13:39 36.3 05/22/20 13:00 62 05/22/20 13:00 61 143/65 92 NIV Bilevel 85.00 05/22/20 12:00 52 27 162/92 90 NIV Bilevel 85.00 05/22/20 11:00 64 25 159/76 93 NIV Bilevel 85.00 05/22/20 10:31 63 30 92 85.00 05/22/20 10:00 64 34 155/82 95 NIV Bilevel 85.00 05/22/20 09:35 36.4 05/22/20 09:00 93 NIV Bilevel 85 05/22/20 09:00 59 31 161/79 94 NIV Bilevel 85.00 05/22/20 08:00 72 31 165/77 95 NIV Bilevel 85.00 05/22/20 07:02 54 28 96 85.00 05/22/20 07:00 54 20 165/74 95 NIV Bilevel 85.00 05/22/20 07:00 56 05/22/20 06:00 52 20 154/71 97 NIV Bilevel 85.00 05/22/20 05:00 48 15 140/82 98 NIV Bilevel 85.00 05/22/20 04:13 36.4 I & O0 05/23/20 07:00 Intake Total 1990 ml Output Total 1275 ml Balance 715 ml Height & Weight Height: 5'9.00" Weight: 280lbs. 0.0oz. 127.607763vi; 56.00 BMI Method:Stated General Appearance: WD/WN, Anxious, Moderate Distress HEENT: PERRL/EOMI, Other (Mucous membranes dry) Neck: Non Tender, Supple Respiratory: Accessory Muscle Use, Crackles, Decreased Breath Sounds, E xpiration, Respiratory Distress Cardiovascular: Regular Rate, Rhythm, No Murmur Capillary Refill: Less Than 3 Seconds Gastrointestinal: non tender, soft, other (yeast appearance bilateral groins/skin folds) Extremity: Normal Range of Motion, Non Tender, Pedal Edema (2+ bilateral lower extremities) Neurologic/Psychiatric: Alert, Oriented x3, Motor Weakness (Global) Skin: Normal Color, Warm/Dry Lymphatic: No Adenopathy Results Lab Laboratory Tests 05/21/20 05:30 05/22/20 05:15 05/23/20 02:29 Assessment/Plan Assessment/Plan COVID PNA - Now running fever with rigors -Repeat Montez cultures -Repeat CXR is pending -Pt is now requiring 100% BiPAP and has no respiratory reserve -Vanco and Zosyn -Repeat CXR, PCT, ;and LA -Currently requiring vapotherm at 70% -Remdesivir -CVP -Repeat PCT, BNP , Lasix 40mg x 1 -Give 40 of lasix -Decadron Hypogylcemia - D5LR at 50cc/hr NSTEMI secondary to hypoxia -Emersonies CP Hx of AFIB -Increase Lovenox to therapeutic dosing GI/DVT ppx KEYANA MARLOW DO May 23, 2020 04:12
[2020-05-23] MEDS: PIPERACILLIN/TAZOBACTAM (BULK) 4.5 GM in NS (IVPB) 100 ML IV SCH ×3 (05:03→20:36)
[2020-05-23] MEDS: inSUlin ASPART (NovoLOG) 1 UNIT/0.01 ML (CHARGE PER UNIT) SC SCH ×3 (05:03→18:02)
[2020-05-23] MEDS: RT-ALBUTEROL INHALER HFA (VENTOLIN HFA) 18 GM IH SCH ×6 (07:00→21:25)
--- NOTE | 2020-05-23 07:40 | NUR ---
RN called EICU at this time due to pt's change in mentation and O2 saturation of 85%. Early am blood gas results given to physician new orders received to Intubate pt at this time. Anesthesia notified.
[2020-05-23] MEDS ORDERED: NS IV 1000 ML 0 ML ONE (07:56)
[2020-05-23] MEDS ORDERED: PROPOFOL DRIP (ICU) 100 ML IV ONE (07:57)
[2020-05-23] MEDS ORDERED: fentaNYL DRIP PRE-MIX 250 ML IV ONE (07:57)
--- NOTE | 2020-05-23 08:00 | NUR ---
, Dahiana, kemiimed at this time to speak with pt. This RN spoke with both and pt at this time regarding intubation orders given by EICU. Both and pt agree to intubation at this time. Education provided to both pt and family during this time. Will continue to monitor.
[2020-05-23] MEDS ORDERED: NS IV 500 ML 500 ML ONE (08:04)
[2020-05-23] MEDS: DOCUSATE SODIUM 100 MG (COLACE) CAP PO SCH ×2 (08:22→20:43)
[2020-05-23] MEDS: meTOprolol TARTRATE 25 MG (LOPRESSOR) TABLET PO SCH ×2 (08:22→20:43)
[2020-05-23] MEDS: dexAMETHasone 6 MG TAB (DECADRON) PO SCH (08:23)
[2020-05-23] MEDS: PROPOFOL DRIP (ICU) 100 ML IV SCH ×6 (09:00→18:13)
--- NOTE | 2020-05-23 09:00 | NUR ---
Pt intubated at this time by anesthesia per EICU. 1mg of versed given to start intubation. Pt remains on Precedex ggt at this time. 20mg Etomidate given per anesthesia then 100mg Succinylcholine also given during this time. Pt intubated with 8.0ETT 24 at the teeth verified with co2 color change and chest x-ray. EICU doctor verified. Pt then started on Propofol and Fentanyl gtts for sedation.
--- NOTE | 2020-05-23 09:10 | NUR ---
EICU called into pt room at this time via button on wall. Pt intubated by anesthesia. O2 saturation 79% at this time. New orders received and blood gas obtained per physician orders. New ventilator settings given. This RN remains in pt room at this time.
[2020-05-23 09:35] LABS: ABG BASE EXCESS -2.8 MMOL/L (-2.5-2.5); ABG OXYGEN SATURATION 78 % (94-100); ABG PCO2 42 MMHG (35-45); ABG PO2 48 MMHG (79-93); ABG TCO2 23.9 MMOL/L (21.0-31.0)
[2020-05-23 09:38] LABS: ABG PH 7.34 (7.37-7.43); INSPIRED O2 100%; VENTILATOR NO
--- NOTE | 2020-05-23 09:41 | Diagnostic Imaging Report ---
EXAMINATION: Chest 1 view. HISTORY: Intubation. COMPARISON: Chest radiograph 05/22/2020. FINDINGS: Heart size and pulmonary vasculature are stable. Interval placement of an endotracheal tube positioned approximately 2.8 cm above the morris. Increasing patchy interstitial and airspace opacities throughout both lungs. Blunting of the costophrenic angles. No pneumothorax. The osseous structures are intact. IMPRESSION: 1. Interval placement of an endotracheal tube in appropriate position above the morris. 2. Increasing patchy interstitial and airspace opacities throughout both lungs, compatible with multifocal pneumonia or pulmonary edema. 3. Blunting of the costophrenic angles likely represents developing pleural effusions. Dictated by: Dictated on workstation # [id number]
--- NOTE | 2020-05-23 09:45 | NUR ---
Pt o2 saturation remains high 80s % at this time. EICU physician aware. New orders received. Saroj, RT also at bedside during this time. All other VS remain stable. New orders received to obtain ABG post Ventilator changes.
[2020-05-23 10:01] VITALS: BP 100/56
--- NOTE | 2020-05-23 10:45 | NUR ---
Anesthesia returned to bedside at this time to place arterial line. Artline placed in right wrist with single attempt. NBP and arterial line correlate at this time. NBP discontinued. And new ABG obtained.
[2020-05-23] MEDS ORDERED: TROUGH ORDER-PHARMACY XX NR (11:15)
--- NOTE | 2020-05-23 11:15 | NUR ---
Dr. Patel at bedside at this time for central line placement. Right triple lumen IJ placed by physician. Physician verbalized no xray order at this time for placement. Permission given to this RN to use line at this time. Will continue to monitor.
[2020-05-23 11:18] VITALS: BP 129/71
[2020-05-23] MEDS: PANTOPRAZOLE 40 MG (PROTONIX) VIAL IV SCH (11:41)
--- NOTE | 2020-05-23 11:42 | Progress Note - Surgery ---
Subjective Time Seen by a Provider: 11:07 Subjective/Events-last exam Pt seen and examined, just intubated secondary to respiratory failure. Pt is having trouble maintaining his BP. Review of Systems unable to obtain, pt is intubated and sedated Objective Exam Vital Signs Date Time Temp Pulse Resp B/P (MAP) Pulse Ox O2 Delivery O2 Flow Rate FiO2 05/23/20 11:18 53 23 91 100 05/23/20 11:15 52 11 92 Mechanical Ventilator 100.00 Automatic Cuff 05/23/20 11:00 50 8 119/72 90 Mechanical Ventilator 100.00 05/23/20 10:01 51 31 90 100 05/23/20 10:00 46 27 100/56 90 Mechanical Ventilator 100.00 05/23/20 09:00 51 174/93 95 Mechanical Ventilator 100.00 05/23/20 08:00 46 133/75 90 Mechanical Ventilator 100.00 05/23/20 07:37 34.1 05/23/20 07:00 45 123/80 NIV Bilevel 100.00 05/23/20 06:43 46 05/23/20 06:00 45 161/83 NIV Bilevel 100.00 05/23/20 05:00 48 165/82 93 NIV Bilevel 100.00 05/23/20 04:00 44 214/99 94 NIV Bilevel 100.00 05/23/20 03:00 48 18 94 85.00 05/23/20 03:00 46 174/86 93 NIV Bilevel 100.00 05/23/20 02:00 48 175/84 95 NIV Bilevel 100.00 05/23/20 01:09 NIV Bilevel 100.00 05/23/20 01:00 47 05/23/20 01:00 46 160/78 90 NIV Bilevel 85.00 05/23/20 00:00 49 17 166/82 92 NIV Bilevel 85.00 05/22/20 23:00 49 17 162/78 93 NIV Bilevel 85.00 05/22/20 22:49 36.9 05/22/20 22:03 48 18 92 85.00 05/22/20 22:00 50 15 160/78 97 NIV Bilevel 85.00 05/22/20 21:00 NIV Bilevel 85 05/22/20 21:00 50 20 169/77 92 NIV Bilevel 85.00 05/22/20 20:08 36.5 05/22/20 20:00 52 21 158/75 92 NIV Bilevel 85.00 05/22/20 19:14 52 92 85.00 05/22/20 19:00 55 20 144/93 94 NIV Bilevel 85.00 05/22/20 19:00 55 05/22/20 18:00 52 11 163/77 92 NIV Bilevel 85.00 05/22/20 17:00 56 20 155/73 95 NIV Bilevel 85.00 05/22/20 16:03 36.4 05/22/20 16:00 57 21 164/77 94 NIV Bilevel 85.00 05/22/20 15:00 61 23 147/65 92 NIV Bilevel 85.00 05/22/20 14:39 59 26 93 85.00 05/22/20 14:00 63 20 130/78 97 NIV Bilevel 85.00 05/22/20 13:39 36.3 05/22/20 13:00 62 05/22/20 13:00 61 143/65 92 NIV Bilevel 85.00 05/22/20 12:00 52 27 162/92 90 NIV Bilevel 85.00 I & O 05/23/20 07:00 Intake Total 2040 ml Output Total 1550 ml Balance 490 ml Capillary Refill : Less Than 3 SecondsLess Than 3 Seconds General Appearance: Moderate Distress, Obese HEENT: PERRL/EOMI, Other (Mucous membranes dry) Neck: Supple Respiratory: Accessory Muscle Use, Crackles, Decreased Breath Sounds, Expiration, Respiratory Distress Cardiovascular: Regular Rate, Rhythm, No Murmur Gastrointestinal: non tender, soft, other (yeast appearance bilateral groins/skin folds) Extremity: Pedal Edema (2+ bilateral lower extremities) Neurologic/Psychiatric: Motor Weakness (Global) Skin: Normal Color, Warm/Dry Results Lab Laboratory Tests 05/22/20 16:02: Glucometer 128H 05/22/20 20:36: Glucometer 175H 05/22/20 22:47: Glucometer 189H 05/23/20 02:29: White Blood Count 11.5H, Red Blood Count 4.40, Hemoglobin 13.8, Hematocrit 41, Mean Corpuscular Volume 93, Mean Corpuscular Hemoglobin 31, Mean Corpuscular Hemoglobin Concent 34, Red Cell Distribution Width 13.1, Platelet Count 223, Mean Platelet Volume 9.6, Immature Granulocyte % (Auto) 1, Neutrophils (%) (Auto) 91H, Lymphocytes (%) (Auto) 5L, Monocytes (%) (Auto) 3, Eosinophils (%) (Auto) 0, Basophils (%) (Auto) 0, Neutrophils # (Auto) 10.5H, Lymphocytes # (Auto) 0.6L, Monocytes # (Auto) 0.4, Eosinophils # (Auto) 0.0, Basophils # (Auto) 0.0, Immature Granulocyte # (Auto) 0.1, Sodium Level 133L, Potassium Level 4.1, Chloride Level 103, Carbon Dioxide Level 19L, Anion Gap 11, Blood Urea Nitrogen 33H, Creatinine 0.85, Estimat Glomerular Filtration Rate > 60, BUN/Creatinine Ratio 39, Glucose Level 211H, Calcium Level 8.3L, Phosphorus Level 3.2, Magnesium Level 2.3 05/23/20 03:35: Blood Gas Puncture Site RIGHT RADIAL, Blood Gas Patient Temperature 35.4, Arterial Blood pH 7.37, Arterial Blood Partial Pressure CO2 37, Arterial Blood Partial Pressure O2 57L, Arterial Blood HCO3 21L, Arterial Blood Total CO2 22.6, Arterial Blood Oxygen Saturation 87L, Arterial Blood Base Excess -3.3L, Zoltan Test YES-POS, Blood Gas Ventilator Setting NO, Blood Gas Inspired Oxygen 100% 05/23/20 09:30: Blood Gas Puncture Site NA, Blood Gas Patient Temperature 35.0, Arterial Blood pH 7.34*L, Arterial Blood Partial Pressure CO2 42, Arterial Blood Partial Pressure O2 48L, Arterial Blood HCO3 23, Arterial Blood Total CO2 23.9, Arterial Blood Oxygen Saturation 78L, Arterial Blood Base Excess -2.8L, Zoltan Test NA, Blood Gas Ventilator Setting NO, Blood Gas Inspired Oxygen 100% 05/23/20 10:20: Triglycerides Level 156H, Vancomycin Level Trough 18.4 Microbiology 05/21/20 Gram Stain - Final, Complete 05/21/20 Sputum Culture - Final, Complete Usual upper respiratory lisa 05/20/20 Blood Culture - Preliminary, Resulted No growth Assessment/Plan Assessment/Plan Assessment/Plan Venous Insufficiency Anticoagulation Covid pneumonia Atrial fibrillation Patient is a 74-year-old male who now needs a central line so that he can get Pressors in order to maintain BP. His anticoagulation has been held and will place an internal jugular vein central line. He agreed to this procedure prior to today. Clinical Quality Measures DVT/VTE Risk/Contraindication: Risk Factor Score Per Nursin RFS Level Per Nursing on Admit: 4+=Very High AVIS ASHFORD DO May 23, 2020 11:42
[2020-05-23] MEDS: fentaNYL DRIP PRE-MIX 250 ML IV SCH ×3 (11:44→23:54)
--- NOTE | 2020-05-23 11:49 | Anesthesia-Procedure Note ---
Procedures/Interventions Procedure Start/Stop/Diagnosis Date of Procedure: May 23, 2020 Start Time: 08:55 Referring Physician: Dr Cevallos Preprocedural Diagnosis: Respiratory Failure Brief History Anesthesia Note Called to ICU for urgent intubation. Pre-O2 via Bi-PAP. Midazolam, Etomidate and Succinylcholine given IV. Easy intubation with Pang. Secured at 23 cm. No difficulty. Stop Time: 09:05 Postprocedural Diagnosis: Same Intubation Reason Intubation/Diagnosis: Resp. Failure RSI: Yes 100% pre-Ox, [id number]: Yes (via BiPAP) Intubation Method: orotracheal Videoscope used: Yes (Pang XBlade) Grade View: 1 Medications: Etomidate (20 mg IV), Succinylcholine (100 mg IV), Versed (1 mg IV) Mask Ventilation: negative Positive End Tide CO2: No Breath Sounds after Intubation: bilateral-equal ETT Securred @ (cm): 23 Intubated with ease: Yes Intubation Complications: no complications, O2 saturation decreased (D/W RN and pt desaturated after I left but increased after adding PEEP.) Care turned over to: GIOVANI Cummins DO May 23, 2020 11:49
--- NOTE | 2020-05-23 11:50 | Progress Note-Post Operative ---
Post-Operative Progess Note Surgeon (s)/Engineering Assistant (s) Surgeon AVIS ASHFORD DO Engineering Assistant: none Pre-Operative Diagnosis Venous Insufficiency, Hypotension, Covid-19 Respiratory Failure Post-Operative Diagnosis same Procedure & Operative Findings Date of Procedure 05/23/20 Procedure Performed/Findings PROCEDURE: [Right] internal jugular central line placement using ultrasound guidance. COMPLICATIONS: None. INDICATIONS: The patient is a 74 year old male with Venous Insufficiency, Hypotension and Covid-19 Respiratory failure. Patient understood the risks and benefits of port placement (yesterday) and was ok to proceed with the procedure. PROCEDURE: The patient was in his bed in the ICU, was prepped and draped in the sterile fashion. A surgical pause was performed. Ultrasound was used to locate the internal jugular vein. Once located the right internal jugular vein was accessed; using an 18 gauge finder needle with negative inspiration. Watched as the needle entered the vein and dark nonpulsatile blood was withdrawn. The wire was inserted and US confirmed proper placement of wire in the IJ. The needle was removed. A [#11] blade scalpel was used to make a stab incision along the guidewire and then the dilator was inserted over the wire using the Seldinger technique. The dilator was removed and the central line was inserted over the wire using the Seldinger technique. The Groshong wire was removed and each lumen was then accessed; good flash of blood in each port and then easily flushed with sterile saline. Locking ports had been placed on each of the three lumens. The catheter was the sutured in place using 3-0 Silk on a Ciaran needle. The areas were then cleaned and a sterile dressing was placed over the catheter. The patient tolerated the procedure well without complication. Anesthesia Type Sedated on vent, Propofol Estimated Blood Loss Estimated blood loss (mL): scant Specimens/Packing Specimens Removed none AVIS ASHFORD DO May 23, 2020 11:50
[2020-05-23] MEDS: VANCOMYCIN 1500 MG/NS 500 ML IVPB IV SCH ×2 (11:57)
[2020-05-23 12:13] LABS: ABG BASE EXCESS -4.4 MMOL/L (-2.5-2.5); ABG OXYGEN SATURATION 89 % (94-100); ABG PCO2 37 MMHG (35-45); ABG PH 7.35 (7.37-7.43); ABG PO2 56 MMHG (79-93); ABG TCO2 22.3 MMOL/L (21.0-31.0)
[2020-05-23 12:15] LABS: INSPIRED O2 100%; VENTILATOR YES
[2020-05-23 12:16] LABS: PATIENT TEMP 33.4
--- NOTE | 2020-05-23 13:36 | Anesthesia-Procedure Note ---
Procedures/Interventions Procedure Start/Stop/Diagnosis Date of Procedure: May 23, 2020 Start Time: 10:55 Referring Physician: Dr Cevallos Preprocedural Diagnosis: Resp. Failure Brief History Called to ICU for intubation and art line placement. Stop Time: 11:10 Postprocedural Diagnosis: Same Arterial Line Arterial Line Catheter: 20G Type: Radial Location: Right Procedure: prepped, draped in sterile fashion, 1% lidocaine used to numb region, good wave-form was obtained, patient tolerated procedure well, no immediate complications, post procedure area cleaned, post procedure dressing applied GIOVANI ELLSWORTH DO May 23, 2020 13:36
[2020-05-23 15:05] VITALS: BP 117/63
--- NOTE | 2020-05-23 15:27 | NUR ---
Note pt is currently intubated and sedated. Would recommend initiation of TF of Pulmocare 1.5 kcal at rate of 15ml/hr with 25ml water flushes q4h for hydration and to prevent the tube from clogging. Will continue to follow and reassess as pt needs, intake, and status change. Luisa Valdivia, MS RD LD [phone] (cell)
[2020-05-23] MEDS ORDERED: SUCCINYLCHOLINE INJ 100 MG/5 ML SYR/VIAL INJ ONE (17:11)
[2020-05-23] MEDS ORDERED: MIDAZOLAM 5 MG/5 ML (VERSED) VIAL IJ ONE (17:11)
[2020-05-23] MEDS ORDERED: ETOMIDATE IV SOLN 20 MG/10 ML VIAL IV ONE (17:11)
[2020-05-23 18:27] VITALS: BP 109/52
[2020-05-23] MEDS: ENOXAPARIN 300 MG/3 ML (LOVENOX) MULTI-DOSE VIAL SQ SCH (20:37)
[2020-05-23] MEDS: MICONAZOLE 2% POWDER (DESENEX AF) 90 GM TOP SCH (20:37)
[2020-05-23] MEDS: MELATONIN 3 MG TABLET PO SCH (20:43)
[2020-05-23 21:25] VITALS: BP 116/53
[2020-05-23] MEDS: D5 LR IV SOLUTION 1,000 ML IV SCH (22:27)
[2020-05-24] MEDS: PROPOFOL DRIP (ICU) 100 ML IV SCH ×6 (00:25→21:00)
[2020-05-24 01:47] VITALS: BP 107/53
[2020-05-24] MEDS: RT-ALBUTEROL INHALER HFA (VENTOLIN HFA) 18 GM IH SCH ×6 (01:47→21:40)
[2020-05-24 03:13] LABS: BASOPHILS % (AUTO) 0 % (0-10); EOSINOPHILS # (AUTO) 0.3 10^3/uL (0.0-0.3); EOSINOPHILS % (AUTO) 2 % (0-10); HEMATOCRIT 40 % (40-54); HEMOGLOBIN 13.1 g/dL (13.3-17.7); LYMPHOCYTES # (AUTO) 0.7 10^3/uL (1.0-4.0); LYMPHOCYTES % (AUTO) 4 % (12-44); MEAN CORPUSCULAR HEMOGLOBIN 32 pg (25-34); MEAN CORPUSCULAR HGB CONC 33 g/dL (32-36); MEAN CORPUSCULAR VOLUME 96 fL (80-99); MEAN PLATELET VOLUME 9.8 fL (9.0-12.2); MONOCYTES # (AUTO) 0.4 10^3/uL (0.0-1.0); MONOCYTES % (AUTO) 3 % (0-12); NEUTROPHILS # (AUTO) 13.6 10^3/uL (1.8-7.8); NEUTROPHILS % (AUTO) 89 % (42-75); PLATELET COUNT 233 10^3/uL (130-400); WHITE BLOOD COUNT 15.2 10^3/uL (4.3-11.0)
[2020-05-24 03:26] LABS: ABG OXYGEN SATURATION 95 % (94-100); ABG PCO2 49 MMHG (35-45); ABG PO2 100 MMHG (79-93); ABG TCO2 21.6 MMOL/L (21.0-31.0)
[2020-05-24 03:28] LABS: ABG PH 7.24 (7.37-7.43)
[2020-05-24 03:29] LABS: ALLENS TEST ART LINE; INSPIRED O2 75%; PATIENT TEMP 37.4; VENTILATOR YES
[2020-05-24 03:34] LABS: POTASSIUM 4.5 MMOL/L (3.6-5.0)
[2020-05-24 03:35] LABS: CALCIUM 7.9 MG/DL (8.5-10.1)
[2020-05-24 03:39] LABS: PHOSPHORUS 5.1 MG/DL (2.3-4.7)
[2020-05-24 03:40] LABS: CREATININE SERUM 1.71 MG/DL (0.60-1.30)
[2020-05-24 03:42] LABS: MAGNESIUM 2.4 MG/DL (1.6-2.4)
[2020-05-24] MEDS: D5 LR IV SOLUTION 1,000 ML IV SCH (03:55)
[2020-05-24] MEDS: PIPERACILLIN/TAZOBACTAM (BULK) 4.5 GM in NS (IVPB) 100 ML IV SCH ×3 (03:58→20:41)
--- NOTE | 2020-05-24 04:00 | Pulmonary Progress Note ---
Subjective Time Seen by a Provider: 03:56 Subjective/Events-last exam Sedated on vent. Sepsis Event Evaluation Height, Weight, BMI Height: 5'9.00" Weight: 280lbs. 0.0oz. 127.808428cn; 56.00 BMI Method:Stated Exam Exam Vital Signs Date Time Temp Pulse Resp B/P (MAP) Pulse Ox O2 Delivery O2 Flow Rate FiO2 05/24/20 02:35 Mechanical Ventilator 75.00 05/24/20 01:47 89 23 93 80 05/24/20 00:24 Mechanical Ventilator 80.00 05/24/20 00:05 Mechanical Ventilator 85.00 05/23/20 23:00 37.9 91 7 95 Mechanical Ventilator 90.00 05/23/20 22:00 37.8 74 10 95 Mechanical Ventilator 90.00 05/23/20 21:25 75 24 93 90 05/23/20 21:00 Mechanical Ventilator 90 05/23/20 21:00 37.7 74 12 93 Mechanical Ventilator 90.00 05/23/20 20:50 Mechanical Ventilator 90.00 05/23/20 20:46 37.7 Mechanical Ventilator 80.00 05/23/20 20:00 37.5 75 21 90 Mechanical Ventilator 75.00 05/23/20 19:00 75 05/23/20 19:00 37.3 75 17 90 Mechanical Ventilator 75.00 05/23/20 18:27 67 28 90 70 05/23/20 18:24 Mechanical Ventilator 75.00 05/23/20 18:13 67 05/23/20 18:00 37.3 67 13 95 Mechanical Ventilator 100.00 05/23/20 17:54 66 101/53 05/23/20 17:00 37.4 68 8 97 Mechanical Ventilator 100.00 05/23/20 16:00 37.2 67 13 97 Mechanical Ventilator 100.00 05/23/20 15:05 73 24 91 100 05/23/20 15:00 37.1 64 15 97 Mechanical Ventilator 100.00 05/23/20 14:50 73 05/23/20 14:47 71 05/23/20 14:00 35.5 64 13 88 Mechanical Ventilator 100.00 05/23/20 13:00 34.8 61 10 88 Mechanical Ventilator 100.00 05/23/20 12:43 61 05/23/20 12:00 56 11 89 Mechanical Ventilator 100.00 05/23/20 11:18 53 23 91 100 05/23/20 11:15 52 11 92 Mechanical Ventilator 100.00 Automatic Cuff 05/23/20 11:00 50 8 119/72 90 Mechanical Ventilator 100.00 05/23/20 10:45 55 134/72 05/23/20 10:01 51 31 90 100 05/23/20 10:00 46 27 100/56 90 Mechanical Ventilator 100.00 05/23/20 09:00 88 NIV Bilevel 100 05/23/20 09:00 51 174/93 95 Mechanical Ventilator 100.00 05/23/20 09:00 55 132/77 05/23/20 08:00 46 133/75 90 Mechanical Ventilator 100.00 05/23/20 07:37 34.1 05/23/20 07:00 45 123/80 NIV Bilevel 100.00 05/23/20 06:43 46 05/23/20 06:00 45 161/83 NIV Bilevel 100.00 05/23/20 05:00 48 165/82 93 NIV Bilevel 100.00 05/23/20 04:00 44 214/99 94 NIV Bilevel 100.00 I & O 05/24/20 07:00 Intake Total 820 ml Output Total 875 ml Balance -55 ml Height & Weight Height: 5'9.00" Weight: 280lbs. 0.0oz. 127.945263xs; 56.00 BMI Method:Stated General Appearance: Moderate Distress, Obese HEENT: PERRL/EOMI, Other (Mucous membranes dry) Neck: Supple Respiratory: Accessory Muscle Use, Crackles, Decreased Breath Sounds, Expiration, Respiratory Distress Cardiovascular: Regular Rate, Rhythm, No Murmur Capillary Refill: Less Than 3 Seconds Gastrointestinal: non tender, soft, other (yeast appearance bilateral groins/skin folds) Extremity: Pedal Edema (2+ bilateral lower extremities) Neurologic/Psychiatric: Motor Weakness (Global) Skin: Normal Color, Warm/Dry Results Lab Laboratory Tests 05/22/20 05:15 05/23/20 02:29 05/24/20 03:01 Assessment/Plan Assessment/Plan COVID PNA - Now running fever with rigors -Pt was intubated yesterday per EICU. -EICU managed pt thorough the night. -Zosyn -PEEP is currently 18. Titrating Fi02 down currently at 70%. Decrease peep to 16 and Fi02 to 55% -Repeat DDimer -s/p Remdesivir CVP -Decadron Acute renal failure -INcrease IVF to 100cc/hr -Give liter bolus of LR over 4hours. Hypogylcemia - D5LR at 50cc/hr NSTEMI secondary to hypoxia -Denies CP Hx of AFIB -Increase Lovenox to therapeutic dosing GI/DVT ppx KEYANA MARLOW DO May 24, 2020 04:00
[2020-05-24] MEDS ORDERED: MIDAZOLAM INJECTION FOR DRIPS 50 MG in NS (IVPB) 90 ML IV SCH (04:30)
[2020-05-24] MEDS: inSUlin ASPART (NovoLOG) 1 UNIT/0.01 ML (CHARGE PER UNIT) SC SCH ×5 (06:00→23:08)
[2020-05-24] MEDS: LACTATED RINGERS 1,000 ML IV SCH ×3 (06:13→13:17)
[2020-05-24] MEDS: fentaNYL DRIP PRE-MIX 250 ML IV SCH ×3 (06:14→22:59)
[2020-05-24] MEDS: KCL 20 MEQ TAB (K-DUR) PO SCH (07:04)
[2020-05-24] MEDS: MAGNESIUM 1 GM/100 ML IVPB 100 ML IV SCH (07:04)
[2020-05-24] MEDS: POTASSIUM CL 10MEQ/50ML IVPB 50 ML IV SCH (07:04)
[2020-05-24 07:41] VITALS: BP 112/44
[2020-05-24] MEDS: PANTOPRAZOLE 40 MG (PROTONIX) VIAL IV SCH (09:17)
[2020-05-24] MEDS: meTOprolol TARTRATE 25 MG (LOPRESSOR) TABLET PO SCH ×2 (09:17→20:22)
[2020-05-24] MEDS: MICONAZOLE 2% POWDER (DESENEX AF) 90 GM TOP SCH ×2 (09:18→20:42)
[2020-05-24] MEDS: ENOXAPARIN 300 MG/3 ML (LOVENOX) MULTI-DOSE VIAL SQ SCH ×2 (09:18→20:42)
[2020-05-24] MEDS: DOCUSATE SODIUM 10 MG/ML 10 ML UDC (COLACE) PO SCH ×2 (09:18→20:41)
[2020-05-24] MEDS: MIDAZOLAM DRIP PRE-MIX 100 ML IV SCH (09:19)
[2020-05-24 10:29] VITALS: BP 115/44
--- NOTE | 2020-05-24 11:33 | Physical Therapy Progress Note ---
Therapy Progress Note PROM B U/LE in available ranges. Edema left hand, concern for ring on finger. Nurse notified. DAVION HWANG PT May 24, 2020 11:33
--- NOTE | 2020-05-24 15:35 | NUR ---
During care rounds, it was noted that pt is receiving Pulmocare at 15ml/hr with 30ml water flushes q4h. Would recommend maintaining current rate at this time. Will continue to follow and reassess as pt needs, intake, and status change. Luisa Valdivia, MS RD LD [phone] (cell)
[2020-05-24 15:42] VITALS: BP 151/48
[2020-05-24 19:00] VITALS: BP 139/45
[2020-05-24 21:40] VITALS: BP 154/53
[2020-05-25] MEDS: PROPOFOL DRIP (ICU) 100 ML IV SCH ×8 (00:39→23:31)
[2020-05-25] MEDS: D5 LR IV SOLUTION 1,000 ML IV SCH ×3 (00:41→20:09)
[2020-05-25 02:27] VITALS: BP 113/41
[2020-05-25] MEDS: RT-ALBUTEROL INHALER HFA (VENTOLIN HFA) 18 GM IH SCH ×6 (02:27→23:19)
[2020-05-25 04:04] LABS: BASOPHILS % (AUTO) 0 % (0-10); EOSINOPHILS # (AUTO) 0.1 10^3/uL (0.0-0.3); EOSINOPHILS % (AUTO) 1 % (0-10); HEMATOCRIT 41 % (40-54); HEMOGLOBIN 12.7 g/dL (13.3-17.7); LYMPHOCYTES # (AUTO) 0.8 10^3/uL (1.0-4.0); LYMPHOCYTES % (AUTO) 5 % (12-44); MEAN CORPUSCULAR HEMOGLOBIN 31 pg (25-34); MEAN CORPUSCULAR HGB CONC 31 g/dL (32-36); MEAN CORPUSCULAR VOLUME 101 fL (80-99); MEAN PLATELET VOLUME 9.4 fL (9.0-12.2); MONOCYTES # (AUTO) 0.8 10^3/uL (0.0-1.0); MONOCYTES % (AUTO) 5 % (0-12); NEUTROPHILS # (AUTO) 15.2 10^3/uL (1.8-7.8); NEUTROPHILS % (AUTO) 88 % (42-75); PLATELET COUNT 308 10^3/uL (130-400); WHITE BLOOD COUNT 17.3 10^3/uL (4.3-11.0)
[2020-05-25 04:06] LABS: ABG BASE EXCESS -7.7 MMOL/L (-2.5-2.5); ABG OXYGEN SATURATION 98 % (94-100); ABG PCO2 65 MMHG (35-45); ABG PO2 129 MMHG (79-93); ABG TCO2 22.3 MMOL/L (21.0-31.0)
[2020-05-25 04:08] LABS: ABG PH 7.12 (7.37-7.43)
[2020-05-25 04:09] LABS: ALLENS TEST ART LINE; INSPIRED O2 45%; PATIENT TEMP 37.4; VENTILATOR YES
[2020-05-25 04:24] LABS: POTASSIUM 4.7 MMOL/L (3.6-5.0)
[2020-05-25 04:25] LABS: CALCIUM 8.1 MG/DL (8.5-10.1)
[2020-05-25 04:29] LABS: PHOSPHORUS 7.3 MG/DL (2.3-4.7)
[2020-05-25 04:30] LABS: CREATININE SERUM 2.28 MG/DL (0.60-1.30)
[2020-05-25 04:32] LABS: MAGNESIUM 2.4 MG/DL (1.6-2.4)
[2020-05-25 04:49] LABS: BAND NEUTROPHILS 1 %; LYMPHOCYTES % (MANUAL) 2 %; MONOCYTES % (MANUAL) 4 %; NEUTROPHILS % (MANUAL) 93 %; RBC MORPH NORMAL
[2020-05-25] MEDS: POTASSIUM CL 10MEQ/50ML IVPB 50 ML IV SCH (05:37)
[2020-05-25] MEDS: KCL 20 MEQ TAB (K-DUR) PO SCH (05:38)
[2020-05-25] MEDS: MAGNESIUM 1 GM/100 ML IVPB 100 ML IV SCH (05:38)
[2020-05-25] MEDS: fentaNYL DRIP PRE-MIX 250 ML IV SCH ×2 (06:14→16:21)
[2020-05-25] MEDS: inSUlin ASPART (NovoLOG) 1 UNIT/0.01 ML (CHARGE PER UNIT) SC SCH ×4 (06:15→23:38)
[2020-05-25] MEDS ORDERED: LACTATED RINGERS 1,000 ML IV ONE ×3 (06:21→07:30)
[2020-05-25 06:28] VITALS: BP 101/38
--- NOTE | 2020-05-25 06:29 | NUR ---
NOTIFIED DR MARLOW OF LOW URINE OUTPUT
--- NOTE | 2020-05-25 08:35 | Diagnostic Imaging Report ---
INDICATION: Tubes and line position. COMPARISON: 05/23/2020. FINDINGS: The ET tube remains in good position. A right jugular line is now present with the tip at the cavoatrial junction. An NG tube is present extending below the diaphragm. Dense bilateral 5 lobed alveolar infiltrates, more severe in the lower lobes, are again noted. IMPRESSION: Continued dense alveolar pneumonia. The tubes and line are in good position. Dictated by: Dictated on workstation # [id number]
--- NOTE | 2020-05-25 09:01 | Physical Therapy Progress Note ---
Therapy Progress Note Performed (B) UE/ADDISON PROM BENJAMIN CHOI PT May 25, 2020 09:01
[2020-05-25] MEDS: DOCUSATE SODIUM 10 MG/ML 10 ML UDC (COLACE) PO SCH ×2 (09:05→21:25)
[2020-05-25] MEDS: PANTOPRAZOLE 40 MG (PROTONIX) VIAL IV SCH (09:05)
[2020-05-25] MEDS: ENOXAPARIN 300 MG/3 ML (LOVENOX) MULTI-DOSE VIAL SQ SCH ×2 (09:05→21:24)
[2020-05-25] MEDS: MICONAZOLE 2% POWDER (DESENEX AF) 90 GM TOP SCH ×2 (09:06→20:11)
[2020-05-25] MEDS: meTOprolol TARTRATE 25 MG (LOPRESSOR) TABLET PO SCH ×2 (09:15→20:10)
[2020-05-25 09:56] VITALS: BP 97/38
[2020-05-25] MEDS ORDERED: NOREPINEPHRINE 4 MG/250 ML 250 ML IV ONE (10:19)
[2020-05-25] MEDS: NOREPINEPHRINE 4 MG/250 ML 250 ML IV SCH ×4 (10:37→23:30)
[2020-05-25 13:50] LABS: ABG OXYGEN SATURATION 95 % (94-100); ABG PCO2 61 MMHG (35-45); ABG PO2 94 MMHG (79-93); ABG TCO2 21.7 MMOL/L (21.0-31.0)
[2020-05-25 13:57] LABS: ABG PH 7.14 (7.37-7.43); ALLENS TEST ARTLINE; PATIENT TEMP 36.5; VENTILATOR YES
[2020-05-25 14:23] VITALS: BP 124/37
--- NOTE | 2020-05-25 14:32 | Pulmonary Progress Note ---
Subjective Date Seen by a Provider: May 25, 2020 Time Seen by a Provider: 14:28 Subjective/Events-last exam Pt is sedated on vent. Sepsis Event Evaluation Height, Weight, BMI Height: 5'9.00" Weight: 280lbs. 0.0oz. 127.718933mj; 56.00 BMI Method:Stated Exam Exam Vital Signs Date Time Temp Pulse Resp B/P (MAP) Pulse Ox O2 Delivery O2 Flow Rate FiO2 05/25/20 13:38 86 125/38 05/25/20 13:00 36.5 82 94 Mechanical Ventilator 85.00 05/25/20 12:32 92 05/25/20 12:00 36.3 92 93 Mechanical Ventilator 85.00 05/25/20 11:00 36.1 92 93 Mechanical Ventilator 85.00 05/25/20 10:37 94 97/38 05/25/20 10:28 94 97/38 05/25/20 10:00 35.9 94 97 Mechanical Ventilator 85.00 05/25/20 09:56 93 24 97 100 05/25/20 09:00 Mechanical Ventilator 55 05/25/20 09:00 35.6 98 97 Mechanical Ventilator 45.00 05/25/20 08:00 35.5 93 97 Mechanical Ventilator 45.00 05/25/20 07:46 94 05/25/20 07:13 96 104/35 05/25/20 07:00 35.8 87 24 96 Mechanical Ventilator 45.00 05/25/20 06:28 86 23 97 45 05/25/20 05:00 36.0 90 19 98 Mechanical Ventilator 45.00 05/25/20 04:00 36.1 88 16 97 Mechanical Ventilator 45.00 05/25/20 03:47 92 113/41 05/25/20 03:00 36.2 91 21 98 Mechanical Ventilator 45.00 05/25/20 02:30 Mechanical Ventilator 45.00 05/25/20 02:27 92 25 97 45 05/25/20 02:00 36.3 92 19 97 Mechanical Ventilator 50.00 05/25/20 01:00 95 05/25/20 01:00 36.4 95 96 Mechanical Ventilator 50.00 05/25/20 00:39 98 154/53 05/25/20 00:00 36.5 96 17 97 Mechanical Ventilator 50.00 05/24/20 23:00 36.6 101 7 96 Mechanical Ventilator 50.00 05/24/20 22:00 36.7 96 8 97 Mechanical Ventilator 50.00 05/24/20 21:40 98 25 98 55 05/24/20 21:00 36.7 96 9 96 Mechanical Ventilator 50.00 05/24/20 21:00 Mechanical Ventilator 55 05/24/20 21:00 90 139/45 05/24/20 20:00 36.7 95 14 96 Mechanical Ventilator 50.00 05/24/20 19:00 36.7 90 8 96 Mechanical Ventilator 50.00 05/24/20 19:00 90 05/24/20 19:00 90 25 96 55 05/24/20 18:00 36.7 90 8 94 Mechanical Ventilator 50.00 05/24/20 17:41 92 151/48 05/24/20 17:00 36.5 92 15 92 Mechanical Ventilator 50.00 05/24/20 16:00 36.4 89 8 93 Mechanical Ventilator 50.00 05/24/20 15:42 89 27 94 55 05/24/20 15:00 36.1 93 10 93 Mechanical Ventilator 50.00 I & O 05/25/20 07:00 Intake Total 935 ml Output Total 850 ml Balance 85 ml Height & Weight Height: 5'9.00" Weight: 280lbs. 0.0oz. 127.360235mx; 56.00 BMI Method:Stated General Appearance: Moderate Distress, Obese, Other (sedated on vent) HEENT: PERRL/EOMI, Other (Mucous membranes dry) Neck: Supple Respiratory: Accessory Muscle Use, Crackles, Decreased Breath Sounds, Expi ration, Respiratory Distress Cardiovascular: Regular Rate, Rhythm, No Murmur Capillary Refill: Less Than 3 Seconds Gastrointestinal: non tender, soft, other (yeast appearance bilateral groins/skin folds) Extremity: Pedal Edema (2+ bilateral lower extremities) Neurologic/Psychiatric: Motor Weakness (Global) Skin: Normal Color, Warm/Dry Results Lab Laboratory Tests 05/24/20 03:01 05/25/20 03:53 Assessment/Plan Assessment/Plan Acute respiratory failure with ARDS secondary to COVID -Intubated 05/23 -EICU managed pt thorough the night. -Zosyn auto stopped at midnight -Restart Zosyn. Pt has worsening leukocytosis. and dense bilateral infiltrates -Restart zosyn. repeat coppola cultures and recheck PCT. -Decadron start upon admission currently 6mg IV daily -s/p Remdesivir CVP -Decadron Acute renal failure - worseing with metabolic acidosis -INcrease IVF to 100cc/hr -Give liter bolus of LR morbid obesity Hypogylcemia - D5LR at 100cc/hr NSTEMI secondary to hypoxia -Denies CP Hx of AFIB -Increase Lovenox to therapeutic dosing GI/DVT ppx KEYANA MARLOW DO May 25, 2020 14:32
[2020-05-25] MEDS ORDERED: LACTATED RINGERS 1,000 ML IV SCH (15:00)
--- NOTE | 2020-05-25 15:13 | NUR ---
During care rounds, it was noted that pt's TF are currently on hold as pt was not tolerating them. Would recommend holding at this time. Will continue to follow and reassess as pt needs, intake, and status change. Luisa Valdivia, MS RD LD [phone] (cell)
[2020-05-25] MEDS: PIPERACILLIN/TAZOBACTAM (BULK) 4.5 GM in NS (IVPB) 100 ML IV SCH ×2 (15:22→23:30)
[2020-05-25 15:40] LABS: ALBUMIN 2.2 GM/DL (3.2-4.5)
[2020-05-25] MEDS: MIDAZOLAM DRIP PRE-MIX 100 ML IV SCH (16:25)
[2020-05-25 17:15] LABS: ABG BASE EXCESS -8.1 MMOL/L (-2.5-2.5); ABG OXYGEN SATURATION 96 % (94-100); ABG PCO2 57 MMHG (35-45); ABG PO2 122 MMHG (79-93); ABG TCO2 21.2 MMOL/L (21.0-31.0)
[2020-05-25 17:18] LABS: ABG PH 7.15 (7.37-7.43)
[2020-05-25 17:20] LABS: ALLENS TEST ART LINE; INSPIRED O2 85%; PATIENT TEMP 36.5; VENTILATOR NO
[2020-05-25 20:23] VITALS: BP 124/37
[2020-05-25 23:19] VITALS: BP 128/41
[2020-05-26] MEDS: NOREPINEPHRINE 4 MG/250 ML 250 ML IV SCH ×6 (02:26→22:54)
[2020-05-26] MEDS: PROPOFOL DRIP (ICU) 100 ML IV SCH ×6 (02:27→22:04)
[2020-05-26] MEDS: fentaNYL DRIP PRE-MIX 250 ML IV SCH ×2 (02:27→14:10)
[2020-05-26 03:03] VITALS: BP 118/35
[2020-05-26 03:03] LABS: BASOPHILS % (AUTO) 0 % (0-10); EOSINOPHILS % (AUTO) 0 % (0-10); HEMATOCRIT 36 % (40-54); HEMOGLOBIN 11.3 g/dL (13.3-17.7); LYMPHOCYTES # (AUTO) 0.9 10^3/uL (1.0-4.0); LYMPHOCYTES % (AUTO) 6 % (12-44); MEAN CORPUSCULAR HEMOGLOBIN 31 pg (25-34); MEAN CORPUSCULAR HGB CONC 31 g/dL (32-36); MEAN CORPUSCULAR VOLUME 100 fL (80-99); MEAN PLATELET VOLUME 9.5 fL (9.0-12.2); MONOCYTES # (AUTO) 0.9 10^3/uL (0.0-1.0); MONOCYTES % (AUTO) 5 % (0-12); NEUTROPHILS # (AUTO) 13.9 10^3/uL (1.8-7.8); NEUTROPHILS % (AUTO) 87 % (42-75); PLATELET COUNT 261 10^3/uL (130-400)
[2020-05-26] MEDS: RT-ALBUTEROL INHALER HFA (VENTOLIN HFA) 18 GM IH SCH ×5 (03:03→22:53)
[2020-05-26 03:12] LABS: ABG BASE EXCESS -7.6 MMOL/L (-2.5-2.5); ABG OXYGEN SATURATION 97 % (94-100); ABG PCO2 53 MMHG (35-45); ABG PO2 119 MMHG (79-93)
[2020-05-26 03:32] LABS: CALCIUM 8.1 MG/DL (8.5-10.1); CREATININE SERUM 2.98 MG/DL (0.60-1.30); MAGNESIUM 2.6 MG/DL (1.6-2.4); PHOSPHORUS 6.3 MG/DL (2.3-4.7); POTASSIUM 4.7 MMOL/L (3.6-5.0)
--- NOTE | 2020-05-26 03:38 | Pulmonary Progress Note ---
Subjective Time Seen by a Provider: 03:32 Subjective/Events-last exam Sedated on vent. Sepsis Event Evaluation Height, Weight, BMI Height: 5'9.00" Weight: 280lbs. 0.0oz. 127.460342nl; 56.00 BMI Method:Stated Focused Exam Lactate Level 05/25/20 14:45: Lactic Acid Level 1.21 Exam Exam Vital Signs Date Time Temp Pulse Resp B/P (MAP) Pulse Ox O2 Delivery O2 Flow Rate FiO2 05/26/20 03:03 112 26 95 30 05/26/20 02:42 Mechanical Ventilator 35.00 05/26/20 02:27 90 128/41 05/26/20 02:00 36.7 84 22 95 Mechanical Ventilator 45.00 05/26/20 01:00 90 05/26/20 01:00 36.6 89 18 95 Mechanical Ventilator 45.00 05/26/20 00:00 36.6 99 28 95 Mechanical Ventilator 45.00 05/25/20 23:31 112 128/41 05/25/20 23:19 112 26 95 35 05/25/20 23:00 36.4 94 13 95 Mechanical Ventilator 45.00 05/25/20 22:00 36.0 84 15 95 Mechanical Ventilator 45.00 05/25/20 21:00 35.9 92 22 95 Mechanical Ventilator 45.00 05/25/20 21:00 Mechanical Ventilator 55 05/25/20 20:23 90 24 98 55 05/25/20 20:12 Mechanical Ventilator 45.00 05/25/20 20:10 88 124/37 05/25/20 20:00 36.1 86 28 97 Mechanical Ventilator 85.00 05/25/20 19:00 86 05/25/20 19:00 36.3 85 22 98 Mechanical Ventilator 85.00 05/25/20 18:00 36.5 88 14 98 Mechanical Ventilator 85.00 05/25/20 17:00 36.5 92 98 Mechanical Ventilator 85.00 05/25/20 16:25 91 24 124/37 05/25/20 16:23 91 124/37 05/25/20 16:00 36.6 93 26 97 Mechanical Ventilator 85.00 05/25/20 15:00 36.7 84 10 94 Mechanical Ventilator 85.00 05/25/20 14:52 91 124/37 11/18/20 14:23 91 24 94 55 05/25/20 14:00 36.6 88 94 Mechanical Ventilator 85.00 05/25/20 13:38 86 125/38 05/25/20 13:00 36.5 82 94 Mechanical Ventilator 85.00 05/25/20 12:32 92 05/25/20 12:00 36.3 92 93 Mechanical Ventilator 85.00 05/25/20 11:00 36.1 92 93 Mechanical Ventilator 85.00 05/25/20 10:37 94 97/38 05/25/20 10:28 94 97/38 05/25/20 10:00 35.9 94 97 Mechanical Ventilator 85.00 05/25/20 09:56 93 24 97 100 05/25/20 09:00 Mechanical Ventilator 55 05/25/20 09:00 35.6 98 97 Mechanical Ventilator 45.00 05/25/20 08:00 35.5 93 97 Mechanical Ventilator 45.00 05/25/20 07:46 94 05/25/20 07:13 96 104/35 05/25/20 07:00 35.8 87 24 96 Mechanical Ventilator 45.00 05/25/20 06:28 86 23 97 45 05/25/20 05:00 36.0 90 19 98 Mechanical Ventilator 45.00 05/25/20 04:00 36.1 88 16 97 Mechanical Ventilator 45.00 05/25/20 03:47 92 113/41 I & O 05/26/20 07:00 Intake Total 0 ml Output Total 550 ml Balance -550 ml Height & Weight Height: 5'9.00" Weight: 280lbs. 0.0oz. 127.492792is; 56.00 BMI Method:Stated General Appearance: No Apparent Distress, WD/WN, Other (sedated on vent) HEENT: PERRL/EOMI, Other (Mucous membranes dry) Neck: Non Tender, Supple Respiratory: Crackles, Decreased Breath Sounds, Expiration Cardiovascular: Regular Rate, Rhythm, No Murmur Capillary Refill: Less Than 3 Seconds Gastrointestinal: non tender, soft, other (yeast appearance bilateral groins/skin folds) Extremity: Normal Range of Motion, Non Tender, Pedal Edema (2+ bilateral lower extremities) Neurologic/Psychiatric: Motor Weakness (Global) Skin: Normal Color, Warm/Dry Results Lab Laboratory Tests 05/25/20 03:53 Assessment/Plan Assessment/Plan Acute respiratory failure with ARDS secondary to COVID -Intubated 05/23 -Fi02 is 30% -Decrease PEEP to 12 -Will decrease to 10 later today if pt is still doing well. -TF -Currently proning daily -Maybe able to D/C proning today will reevaluate later today. -D/C decadron. Pt has been on decadron since admission. -EICU managed pt thorough the night. -05/24 Zosyn auto stopped at midnight -05/24 Restart Zosyn. Pt has worsening leukocytosis. and dense bilateral infiltrates -Restart zosyn. repeat coppola cultures and recheck PCT. -Decadron start upon admission currently 6mg IV daily -Labs are pending -s/p Remdesivir CVP -Decadron Acute renal failure - worsening with metabolic acidosis and oliguria -Increase IVFs -Give a liter bolus -Check CMP and renal US Hyperphos -Start phosLo Hyperglycemia -Change IVF to LR from D5LR continue at 100cc/hr morbid obesity Hypogylcemia - D5LR at 100cc/hr NSTEMI secondary to hypoxia -Denies CP Hx of AFIB -Increase Lovenox to therapeutic dosing GI/DVT ppx -Theraputic Lovenox secondary to elevated DDImer and hypoxia -Increase protonix to BID secondary to blood in OG. KEYANA MARLOW DO May 26, 2020 03:38
[2020-05-26] MEDS ORDERED: SODIUM BICARB 8.4% 50 MEQ/50 ML VIAL IV ONE (03:45)
[2020-05-26 03:58] LABS: ABG PH 7.19 (7.37-7.43); ALLENS TEST ARTLINE; INSPIRED O2 35%
[2020-05-26 03:59] LABS: PATIENT TEMP 36.7; VENTILATOR YES
[2020-05-26 04:04] LABS: ALBUMIN 2.1 GM/DL (3.2-4.5); BILIRUBIN,TOTAL 0.5 MG/DL (0.1-1.0); CREATININE SERUM 2.99 MG/DL (0.60-1.30); POTASSIUM 4.7 MMOL/L (3.6-5.0); TOTAL PROTEIN 5.5 GM/DL (6.4-8.2)
[2020-05-26] MEDS: KCL 20 MEQ TAB (K-DUR) PO SCH (05:09)
[2020-05-26] MEDS: MAGNESIUM 1 GM/100 ML IVPB 100 ML IV SCH (05:09)
[2020-05-26] MEDS: POTASSIUM CL 10MEQ/50ML IVPB 50 ML IV SCH (05:09)
[2020-05-26] MEDS: inSUlin ASPART (NovoLOG) 1 UNIT/0.01 ML (CHARGE PER UNIT) SC SCH ×4 (05:55→23:47)
[2020-05-26] MEDS: LACTATED RINGERS 1,000 ML IV SCH ×3 (05:56→20:35)
[2020-05-26] MEDS: PIPERACILLIN/TAZOBACTAM (BULK) 4.5 GM in NS (IVPB) 100 ML IV SCH ×3 (07:05→23:44)
[2020-05-26] MEDS: DOCUSATE SODIUM 10 MG/ML 10 ML UDC (COLACE) PO SCH ×2 (07:50→20:34)
[2020-05-26] MEDS: meTOprolol TARTRATE 25 MG (LOPRESSOR) TABLET PO SCH ×2 (07:51→21:30)
[2020-05-26] MEDS: CALCIUM ACETATE 667 MG CAP (PHOSLO) PO SCH ×3 (07:51→17:41)
[2020-05-26] MEDS: ENOXAPARIN 300 MG/3 ML (LOVENOX) MULTI-DOSE VIAL SQ SCH (07:51)
[2020-05-26] MEDS: PANTOPRAZOLE 40 MG (PROTONIX) VIAL IV SCH ×2 (07:51→20:34)
[2020-05-26] MEDS: MIDAZOLAM DRIP PRE-MIX 100 ML IV SCH (07:58)
[2020-05-26] MEDS: MICONAZOLE 2% POWDER (DESENEX AF) 90 GM TOP SCH ×2 (07:59→20:35)
--- NOTE | 2020-05-26 08:28 | Diagnostic Imaging Report ---
EXAMINATION: Chest 1 view HISTORY: Intubated COMPARISON: 05/25/2020 FINDINGS: Endotracheal tube tip terminates 5 cm above the morris. Right internal jugular central venous catheter tip terminates in the superior vena cava. Gastric tube tip terminates below the field of view. There is stable moderate to severe patchy airspace opacities consistent with pneumonia. No pneumothorax. Heart size is normal. IMPRESSION: 1. Stable moderate severe patchy bilateral airspace opacities consistent with pneumonia. Dictated by: Dictated on workstation # [id number]
[2020-05-26 08:47] VITALS: BP 152/37
--- NOTE | 2020-05-26 10:17 | Diagnostic Imaging Report ---
PROCEDURE: US Renal Bilateral. TECHNIQUE: Multiple real-time grayscale images were obtained over the kidneys in various projections bilaterally. INDICATION: Renal failure FINDINGS: The right kidney measures 11.0 x 6.7 x 7.1 cm. There is no appreciable mass, calculus or hydronephrosis. The image is suboptimal because of body habitus. The left kidney could not be located sonographically. Urinary bladder is decompressed with a Cyr catheter. IMPRESSION: Limited visualization of the right kidney is unremarkable. The left kidney could not be located sonographically because of body habitus. Dictated by: Dictated on workstation # [id number]
--- NOTE | 2020-05-26 10:23 | NUR ---
dr sanchez informed pt is not tolerating tube feeds, dr aware they are on hold.
[2020-05-26 10:48] VITALS: BP 121/39
--- NOTE | 2020-05-26 11:15 | Physical Therapy Progress Note ---
Therapy Progress Note PROM B U/LE performed in available planes. DAVION HWANG PT May 26, 2020 11:14
--- NOTE | 2020-05-26 12:27 | NUR ---
NEW ORDERS RECEIVED FROM DR MARLOW TO DECREASE PEEP TO 10 AND HOLD OFF AND PRONING PT TODAY.
[2020-05-26] MEDS ORDERED: LACTATED RINGERS 1,000 ML IV SCH (14:00)
[2020-05-26] MEDS ORDERED: ALBUMIN 25% 25 GM/100 ML 100 ML IV ONE (14:00)
[2020-05-26 14:19] VITALS: BP 116/41
--- NOTE | 2020-05-26 15:27 | NUR ---
During care rounds, it was noted that pt's enteral nutrition were still being held from 05/25 due to high residuals and regurgitation. Would recommend continuing to hold at this time. Will continue to follow and reassess as pt needs, intake, and status change. Luisa Valdivia, MS RD LD [phone] (cell)
[2020-05-26 18:57] VITALS: BP 185/54
[2020-05-26 22:59] VITALS: BP 185/54
[2020-05-26] MEDS: hydrALAZINE (APESOLINE) 20 MG/ML VIAL IV PRN (23:44)
[2020-05-27] MEDS: PROPOFOL DRIP (ICU) 100 ML IV SCH ×3 (01:29→08:54)
[2020-05-27] MEDS: fentaNYL DRIP PRE-MIX 250 ML IV SCH (02:57)
[2020-05-27 04:12] LABS: CALCIUM 7.7 MG/DL (8.5-10.1)
[2020-05-27 04:16] LABS: CREATININE SERUM 3.24 MG/DL (0.60-1.30); PHOSPHORUS 4.3 MG/DL (2.3-4.7)
[2020-05-27 04:18] LABS: BASOPHILS % (AUTO) 0 % (0-10); EOSINOPHILS # (AUTO) 0.4 10^3/uL (0.0-0.3); EOSINOPHILS % (AUTO) 4 % (0-10); HEMATOCRIT 32 % (40-54); HEMOGLOBIN 10.2 g/dL (13.3-17.7); LYMPHOCYTES # (AUTO) 0.8 10^3/uL (1.0-4.0); LYMPHOCYTES % (AUTO) 7 % (12-44); MEAN CORPUSCULAR HEMOGLOBIN 31 pg (25-34); MEAN CORPUSCULAR HGB CONC 32 g/dL (32-36); MEAN CORPUSCULAR VOLUME 98 fL (80-99); MEAN PLATELET VOLUME 9.3 fL (9.0-12.2); MONOCYTES # (AUTO) 0.7 10^3/uL (0.0-1.0); MONOCYTES % (AUTO) 6 % (0-12); NEUTROPHILS # (AUTO) 9.6 10^3/uL (1.8-7.8); NEUTROPHILS % (AUTO) 81 % (42-75); PLATELET COUNT 192 10^3/uL (130-400); WHITE BLOOD COUNT 11.9 10^3/uL (4.3-11.0)
[2020-05-27 04:19] LABS: MAGNESIUM 2.3 MG/DL (1.6-2.4)
[2020-05-27] MEDS: POTASSIUM CL 10MEQ/50ML IVPB 50 ML IV SCH (05:09)
[2020-05-27] MEDS: NOREPINEPHRINE 4 MG/250 ML 250 ML IV SCH ×6 (05:09→20:06)
[2020-05-27] MEDS: KCL 20 MEQ TAB (K-DUR) PO SCH (05:10)
[2020-05-27] MEDS: MAGNESIUM 1 GM/100 ML IVPB 100 ML IV SCH (05:10)
[2020-05-27] MEDS: inSUlin ASPART (NovoLOG) 1 UNIT/0.01 ML (CHARGE PER UNIT) SC SCH ×3 (05:10→17:26)
--- NOTE | 2020-05-27 05:27 | NUR ---
Family contacted this RN with password, updated on pt condition. All questions answered.
[2020-05-27] MEDS: RT-ALBUTEROL INHALER HFA (VENTOLIN HFA) 18 GM IH SCH ×6 (05:33→22:31)
[2020-05-27 05:34] VITALS: BP 171/58
[2020-05-27 06:05] LABS: ABG BASE EXCESS -6.5 MMOL/L (-2.5-2.5); ABG OXYGEN SATURATION 98 % (94-100); ABG PCO2 47 MMHG (35-45); ABG PO2 148 MMHG (79-93); ABG TCO2 21.1 MMOL/L (21.0-31.0)
[2020-05-27 06:06] LABS: ALLENS TEST NEGATIVE; INSPIRED O2 50; PATIENT TEMP 36.8; VENTILATOR YES
[2020-05-27 06:07] LABS: ABG PH 7.24 (7.37-7.43)
[2020-05-27] MEDS: PIPERACILLIN/TAZOBACTAM (BULK) 4.5 GM in NS (IVPB) 100 ML IV SCH ×3 (07:30→22:33)
[2020-05-27] MEDS: MIDAZOLAM DRIP PRE-MIX 100 ML IV SCH (07:30)
[2020-05-27] MEDS: PANTOPRAZOLE 40 MG (PROTONIX) VIAL IV SCH ×2 (07:31→20:06)
[2020-05-27] MEDS: DOCUSATE SODIUM 10 MG/ML 10 ML UDC (COLACE) PO SCH ×2 (07:31→20:05)
[2020-05-27] MEDS: meTOprolol TARTRATE 25 MG (LOPRESSOR) TABLET PO SCH ×2 (07:31→20:05)
[2020-05-27] MEDS: CALCIUM ACETATE 667 MG CAP (PHOSLO) PO SCH ×3 (07:31→17:26)
[2020-05-27] MEDS: ENOXAPARIN 300 MG/3 ML (LOVENOX) MULTI-DOSE VIAL SQ SCH (07:32)
[2020-05-27] MEDS: MICONAZOLE 2% POWDER (DESENEX AF) 90 GM TOP SCH ×2 (07:33→20:06)
[2020-05-27] MEDS: LACTATED RINGERS 1,000 ML IV SCH ×2 (07:33→20:05)
[2020-05-27 08:10] VITALS: BP 138/42
--- NOTE | 2020-05-27 09:27 | Progress Note - Hospitalist ---
Subjective HPI/CC On Admission Date Seen by Provider: May 27, 2020 Time Seen by Provider: 09:21 Subjective/Events-last exam Pt remains sedated and on a vent. Discussed with RN. Some bright red output from OG tube last night but now just dark and minimal. Focused Exam Lactate Level 05/25/20 14:45: Lactic Acid Level 1.21 Objective Exam Vital Signs Vital Signs Date Time Temp Pulse Resp B/P (MAP) Pulse Ox O2 Delivery O2 Flow Rate FiO2 05/27/20 08:54 92 138/42 05/27/20 08:10 32 97 50 05/27/20 06:00 36.7 Mechanical Ventilator 50.00 Capillary Refill : Less Than 3 SecondsLess Than 3 Seconds General Appearance: Chronically ill, Obese Respiratory: Decreased Breath Sounds, Other (on a vent) Cardiovascular: Regular Rate, Rhythm, No Murmur Gastrointestinal: Normal Bowel Sounds, Non Tender, Soft Neurologic/Psychiatric: Other (sedated, appears comfortable) Results/Procedures Lab Laboratory Tests 05/27/20 03:47 Patient resulted labs reviewed. Assessment/Plan Assessment and Plan Assess & Plan/Chief Complaint Acute respiratory failure with ARDS secondary to COVID -Intubated 05/23 -TeleICU consulted for vent management -Was unable to tolerate TF while proning, attempt to resume today as proning DC-ed yesterday -Completed course of decadron, convalescent plasma, and Remdesivir -Continue Zosyn, WBC trending down Acute renal failure - worsening with metabolic acidosis and oliguria -Creatinine 3.24 now, UOP increased some yesterday- trend Upper Gi Bleed - Has brigh red blood in OGT overnight, - Hgb dropped 1 unit - Discussed with Surgery recommend just observing for now Hyperphos -Improved to 4.3 today Hyperglycemia -Improving since fluids changed and decadron DC-ed NSTEMI secondary to hypoxia -Minial and trended down, never had chest pain Hx of AFIB - Rate controlled - Lovenox, renally dosed GI/DVT ppx -Lovenox -Protonix BID Discussed with PCP, Dr Gutierrez today to update on plan and status. She is going to call pt family today to update them as well. Critical Care Critically Ill Patient Clinical Quality Measures DVT/VTE Risk/Contraindication: Risk Factor Score Per Nursin RFS Level Per Nursing on Admit: 4+=Very High NICHO DIGGS MD May 27, 2020 09:27
[2020-05-27] MEDS ORDERED: KCL IV SCH (09:30)
[2020-05-27] MEDS ORDERED: 1/2 NS IV SCH (09:30)
[2020-05-27] MEDS ORDERED: D5 IV SCH (09:30)
[2020-05-27] MEDS ORDERED: SODIUM BICARBONATE IV SCH (09:30)
--- NOTE | 2020-05-27 10:17 | Physical Therapy Progress Note ---
Therapy Progress Note PROM all extremities in supine. JUDY FERRO PT May 27, 2020 10:17
[2020-05-27 11:32] VITALS: BP 165/45
[2020-05-27] MEDS: ARTIFICIAL TEARS OINT (LACRI-LUBE) 3.5 GM TUBE OU SCH ×2 (13:21→20:06)
--- NOTE | 2020-05-27 13:33 | NUR ---
Aide RESTARTED PER TELE ICU AT PREVIOUS SETTINGS.
--- NOTE | 2020-05-27 15:03 | NUR ---
During care rounds, it was noted that pt had previous difficulties with tolerating TF. This was noted that while the pt was turned from prone to supine, there were high residuals and the pt was regurgitating TF. Note that proning has been d/c'ed at this time. Note TF of Pulmocare would resume at rate of 15ml/hr with 25ml free water flushes q4h. Recommend monitor for tolerance. Will continue to follow and reassess as pt needs, intake, and status change. Luisa Valdivia, MS RD LD [phone] (cell)
[2020-05-27 15:36] VITALS: BP 169/50
[2020-05-27 19:05] VITALS: BP 187/53
--- NOTE | 2020-05-27 19:41 | NUR ---
[address] Andrews notified for order clarification of [id number] 1/2 AMP HCO3 @ 100 ML/HR. Order received to DC fluids and resume LR @ 100 ml/hr.
[2020-05-27 22:26] VITALS: BP 214/61
[2020-05-27] MEDS: hydrALAZINE (APESOLINE) 20 MG/ML VIAL IV PRN (22:33)
[2020-05-28] MEDS: inSUlin ASPART (NovoLOG) 1 UNIT/0.01 ML (CHARGE PER UNIT) SC SCH ×4 (00:50→17:23)
[2020-05-28] MEDS: NOREPINEPHRINE 4 MG/250 ML 250 ML IV SCH ×6 (01:55→21:01)
[2020-05-28] MEDS: PROPOFOL DRIP (ICU) 100 ML IV SCH ×6 (02:13→21:01)
[2020-05-28] MEDS: fentaNYL DRIP PRE-MIX 250 ML IV SCH ×2 (02:14→15:09)
[2020-05-28 02:16] VITALS: BP 178/51
[2020-05-28] MEDS: RT-ALBUTEROL INHALER HFA (VENTOLIN HFA) 18 GM IH SCH ×6 (02:16→21:59)
[2020-05-28] MEDS: LACTATED RINGERS 1,000 ML IV SCH ×2 (05:04→15:09)
[2020-05-28 05:19] LABS: ABG BASE EXCESS -4.1 MMOL/L (-2.5-2.5); ABG OXYGEN SATURATION 96 % (94-100); ABG PCO2 44 MMHG (35-45); ABG PO2 91 MMHG (79-93); ABG TCO2 22.5 MMOL/L (21.0-31.0)
[2020-05-28 05:20] LABS: ALLENS TEST ARTLINE; INSPIRED O2 45; PATIENT TEMP 37.2; VENTILATOR YES
[2020-05-28 05:23] LABS: BASOPHILS % (AUTO) 0 % (0-10); EOSINOPHILS # (AUTO) 0.3 10^3/uL (0.0-0.3); EOSINOPHILS % (AUTO) 3 % (0-10); HEMATOCRIT 31 % (40-54); HEMOGLOBIN 9.8 g/dL (13.3-17.7); LYMPHOCYTES # (AUTO) 1.1 10^3/uL (1.0-4.0); LYMPHOCYTES % (AUTO) 11 % (12-44); MEAN CORPUSCULAR HEMOGLOBIN 31 pg (25-34); MEAN CORPUSCULAR HGB CONC 32 g/dL (32-36); MEAN CORPUSCULAR VOLUME 98 fL (80-99); MEAN PLATELET VOLUME 9.4 fL (9.0-12.2); MONOCYTES # (AUTO) 0.8 10^3/uL (0.0-1.0); MONOCYTES % (AUTO) 8 % (0-12); NEUTROPHILS # (AUTO) 7.2 10^3/uL (1.8-7.8); NEUTROPHILS % (AUTO) 71 % (42-75); PLATELET COUNT 161 10^3/uL (130-400); WHITE BLOOD COUNT 10.1 10^3/uL (4.3-11.0)
[2020-05-28 05:33] LABS: POTASSIUM 4.2 MMOL/L (3.6-5.0)
[2020-05-28 05:34] LABS: CALCIUM 7.7 MG/DL (8.5-10.1)
[2020-05-28 05:38] LABS: PHOSPHORUS 4.1 MG/DL (2.3-4.7)
[2020-05-28 05:39] LABS: CREATININE SERUM 3.17 MG/DL (0.60-1.30)
[2020-05-28 05:41] LABS: MAGNESIUM 2.4 MG/DL (1.6-2.4)
[2020-05-28] MEDS: POTASSIUM CL 10MEQ/50ML IVPB 50 ML IV SCH (05:53)
[2020-05-28] MEDS: KCL 20 MEQ TAB (K-DUR) PO SCH (05:54)
[2020-05-28] MEDS: MAGNESIUM 1 GM/100 ML IVPB 100 ML IV SCH (05:54)
[2020-05-28] MEDS: PIPERACILLIN/TAZOBACTAM (BULK) 4.5 GM in NS (IVPB) 100 ML IV SCH ×2 (06:09→15:09)
[2020-05-28] MEDS: MIDAZOLAM DRIP PRE-MIX 100 ML IV SCH (06:09)
[2020-05-28 07:38] VITALS: BP 184/81
[2020-05-28] MEDS: PANTOPRAZOLE 40 MG (PROTONIX) VIAL IV SCH ×2 (08:14→20:14)
[2020-05-28] MEDS: CALCIUM ACETATE 667 MG CAP (PHOSLO) PO SCH ×3 (08:14→17:22)
[2020-05-28] MEDS: meTOprolol TARTRATE 25 MG (LOPRESSOR) TABLET PO SCH ×2 (08:14→20:14)
[2020-05-28] MEDS: DOCUSATE SODIUM 10 MG/ML 10 ML UDC (COLACE) PO SCH ×2 (08:14→20:14)
[2020-05-28] MEDS: MICONAZOLE 2% POWDER (DESENEX AF) 90 GM TOP SCH ×2 (08:15→20:15)
[2020-05-28] MEDS: ARTIFICIAL TEARS OINT (LACRI-LUBE) 3.5 GM TUBE OU SCH ×3 (08:15→20:15)
[2020-05-28] MEDS: ENOXAPARIN 300 MG/3 ML (LOVENOX) MULTI-DOSE VIAL SQ SCH (08:15)
[2020-05-28] MEDS: hydrALAZINE (APESOLINE) 20 MG/ML VIAL IV PRN (08:16)
--- NOTE | 2020-05-28 10:02 | Progress Note - Hospitalist ---
Subjective HPI/CC On Admission Date Seen by Provider: May 28, 2020 Time Seen by Provider: 09:56 Subjective/Events-last exam Pt remains intubated and sedated. No complaints at this time per RN. UOP improving. Focused Exam Lactate Level 05/25/20 14:45: Lactic Acid Level 1.21 Objective Exam Vital Signs Vital Signs Date Time Temp Pulse Resp B/P (MAP) Pulse Ox O2 Delivery O2 Flow Rate FiO2 05/28/20 08:26 92 Mechanical Ventilator 45 05/28/20 08:18 37.1 05/28/20 08:14 100 184/81 05/28/20 07:38 30 05/28/20 06:00 45.00 Capillary Refill : Less Than 3 SecondsLess Than 3 Seconds General Appearance: Chronically ill, Obese, Other (sedated, on vent) HEENT: Other (ETT and OGT in place) Respiratory: Decreased Breath Sounds, Other (on vent) Cardiovascular: Regular Rate, Rhythm, No Murmur Gastrointestinal: Normal Bowel Sounds, Non Tender, Soft Genital/Rectal: Other (conde in place) Neurologic/Psychiatric: Other (sedated, appears comfortable) Results/Procedures Lab Laboratory Tests 05/28/20 05:00 Patient resulted labs reviewed. Assessment/Plan Assessment and Plan Assess & Plan/Chief Complaint Acute respiratory failure with ARDS secondary to COVID -Intubated 05/23 -TeleICU consulted for vent management -Continue TF -Completed course of decadron, convalescent plasma, and Remdesivir -Continue Zosyn, WBC trending down Acute renal failure - worsening with metabolic acidosis and oliguria -Creatinine 3.17 today, UOP increasing, 0.47ml/kg/hr yesterday Upper Gi Bleed - BRB in OGT resolved - Hgb stable - Discussed with Surgery recommend just observing for now Hyperphos -Improved to 4.1 today Hyperglycemia -Improving since fluids changed and decadron DC-ed NSTEMI secondary to hypoxia -Minimal and trended down, never had chest pain Hx of AFIB HTN - Rate controlled - Lovenox, renally dosed - Increase metoprolol due to elevated BP - Added oral hydralazine GI/DVT ppx -Lovenox -Protonix BID Critical Care Critically Ill Patient Clinical Quality Measures DVT/VTE Risk/Contraindication: Risk Factor Score Per Nursin RFS Level Per Nursing on Admit: 4+=Very High DONTAE,NICHO M MD May 28, 2020 10:02
[2020-05-28 11:49] VITALS: BP 151/45
[2020-05-28 15:44] VITALS: BP 158/56
[2020-05-28 18:54] VITALS: BP 161/47
[2020-05-28 21:59] VITALS: BP 167/47
[2020-05-29] MEDS: PROPOFOL DRIP (ICU) 100 ML IV SCH ×7 (00:36→21:08)
[2020-05-29] MEDS: PIPERACILLIN/TAZOBACTAM (BULK) 4.5 GM in NS (IVPB) 100 ML IV SCH ×4 (00:36→23:58)
[2020-05-29] MEDS: inSUlin ASPART (NovoLOG) 1 UNIT/0.01 ML (CHARGE PER UNIT) SC SCH ×4 (00:37→17:12)
[2020-05-29] MEDS: LACTATED RINGERS 1,000 ML IV SCH ×3 (00:41→20:35)
[2020-05-29] MEDS: NOREPINEPHRINE 4 MG/250 ML 250 ML IV SCH ×6 (00:42→23:16)
[2020-05-29] MEDS: fentaNYL DRIP PRE-MIX 250 ML IV SCH ×2 (02:46→14:58)
[2020-05-29] MEDS: RT-ALBUTEROL INHALER HFA (VENTOLIN HFA) 18 GM IH SCH ×6 (02:57→20:57)
[2020-05-29 02:58] VITALS: BP 174/45
[2020-05-29 02:58] LABS: BASOPHILS % (AUTO) 0 % (0-10); EOSINOPHILS # (AUTO) 0.3 10^3/uL (0.0-0.3); EOSINOPHILS % (AUTO) 3 % (0-10); HEMATOCRIT 31 % (40-54); HEMOGLOBIN 9.8 g/dL (13.3-17.7); LYMPHOCYTES # (AUTO) 0.9 10^3/uL (1.0-4.0); LYMPHOCYTES % (AUTO) 7 % (12-44); MEAN CORPUSCULAR HEMOGLOBIN 32 pg (25-34); MEAN CORPUSCULAR HGB CONC 32 g/dL (32-36); MEAN CORPUSCULAR VOLUME 99 fL (80-99); MEAN PLATELET VOLUME 9.5 fL (9.0-12.2); MONOCYTES # (AUTO) 0.8 10^3/uL (0.0-1.0); MONOCYTES % (AUTO) 7 % (0-12); NEUTROPHILS # (AUTO) 9.4 10^3/uL (1.8-7.8); NEUTROPHILS % (AUTO) 76 % (42-75); PLATELET COUNT 155 10^3/uL (130-400); WHITE BLOOD COUNT 12.4 10^3/uL (4.3-11.0)
[2020-05-29 02:59] LABS: ABG BASE EXCESS -5.7 MMOL/L (-2.5-2.5); ABG OXYGEN SATURATION 96 % (94-100); ABG PCO2 47 MMHG (35-45); ABG PO2 95 MMHG (79-93); ABG TCO2 21.6 MMOL/L (21.0-31.0); ALLENS TEST ARTLINE; INSPIRED O2 35; VENTILATOR YES
[2020-05-29 03:00] LABS: ABG PH 7.26 (7.37-7.43)
[2020-05-29 03:09] LABS: POTASSIUM 4.3 MMOL/L (3.6-5.0)
[2020-05-29 03:10] LABS: CALCIUM 7.8 MG/DL (8.5-10.1)
[2020-05-29 03:14] LABS: PHOSPHORUS 4.6 MG/DL (2.3-4.7)
[2020-05-29 03:15] LABS: CREATININE SERUM 3.04 MG/DL (0.60-1.30)
[2020-05-29 03:17] LABS: MAGNESIUM 2.3 MG/DL (1.6-2.4)
[2020-05-29] MEDS: MAGNESIUM 1 GM/100 ML IVPB 100 ML IV SCH (06:25)
[2020-05-29] MEDS: POTASSIUM CL 10MEQ/50ML IVPB 50 ML IV SCH (06:25)
[2020-05-29] MEDS: KCL 20 MEQ TAB (K-DUR) PO SCH (06:26)
[2020-05-29 07:53] VITALS: BP 148/40
[2020-05-29] MEDS: ENOXAPARIN 300 MG/3 ML (LOVENOX) MULTI-DOSE VIAL SQ SCH (08:00)
[2020-05-29] MEDS: meTOprolol TARTRATE 25 MG (LOPRESSOR) TABLET PO SCH ×2 (08:01→20:25)
[2020-05-29] MEDS: ARTIFICIAL TEARS OINT (LACRI-LUBE) 3.5 GM TUBE OU SCH ×3 (08:01→21:00)
[2020-05-29] MEDS: PANTOPRAZOLE 40 MG (PROTONIX) VIAL IV SCH ×2 (08:01→20:24)
[2020-05-29] MEDS: CALCIUM ACETATE 667 MG CAP (PHOSLO) PO SCH ×3 (08:01→17:51)
[2020-05-29] MEDS: MICONAZOLE 2% POWDER (DESENEX AF) 90 GM TOP SCH ×2 (08:01→21:00)
[2020-05-29] MEDS: DOCUSATE SODIUM 10 MG/ML 10 ML UDC (COLACE) PO SCH ×2 (08:01→20:24)
[2020-05-29] MEDS: MIDAZOLAM DRIP PRE-MIX 100 ML IV SCH (08:10)
--- NOTE | 2020-05-29 09:12 | Progress Note - Hospitalist ---
Subjective HPI/CC On Admission Date Seen by Provider: May 29, 2020 Time Seen by Provider: 09:08 Subjective/Events-last exam Pt remains intubated and sedated. No new complaints or concerns per RN. Objective Exam Vital Signs Vital Signs Date Time Temp Pulse Resp B/P (MAP) Pulse Ox O2 Delivery O2 Flow Rate FiO2 05/29/20 08:12 93 Mechanical Ventilator 40 05/29/20 08:00 76 174/45 05/29/20 07:53 30 05/29/20 07:00 36.5 40.00 Capillary Refill : Less Than 3 SecondsLess Than 3 Seconds General Appearance: Chronically ill, Obese, Other (sedated and intubated) Respiratory: Decreased Breath Sounds; No Rhonci, No Wheezing; Other (on vent) Cardiovascular: Regular Rate, Rhythm, No JVD Gastrointestinal: Normal Bowel Sounds, Non Tender, Soft Neurologic/Psychiatric: Other (sedated, appears comfortable) Results/Procedures Lab Laboratory Tests 05/29/20 02:30 Patient resulted labs reviewed. Assessment/Plan Assessment and Plan Assess & Plan/Chief Complaint Acute respiratory failure with ARDS secondary to COVID -Intubated 05/23 -TeleICU consulted for vent management -Continue TF -Completed course of decadron, convalescent plasma, and Remdesivir -Continue Zosyn, WBC trending down Acute renal failure - worsening with metabolic acidosis and oliguria -Creatinine 3.04 today, UOP increasing, 0.46ml/kg/hr yesterday Upper GI Bleed - BRB in OGT resolved - Hgb stable - Discussed with Surgery recommend just observing for now Hyperphos -Improved Hyperglycemia -Improving since fluids changed and decadron DC-ed NSTEMI secondary to hypoxia -Minimal and trended down, never had chest pain Hx of AFIB HTN - Rate controlled - Lovenox, renally dosed - Rate and BP improved GI/DVT ppx -Lovenox -Protonix BID Critical Care Critically Ill Patient Clinical Quality Measures DVT/VTE Risk/Contraindication: Risk Factor Score Per Nursin RFS Level Per Nursing on Admit: 4+=Very High NICHO DIGGS MD May 29, 2020 09:12
[2020-05-29 10:02] VITALS: BP 127/37
[2020-05-29 10:07] LABS: FIBRIN DEGRADATION PRODUCTS 0.75 UG/ML (0.00-0.49); INR 1.1 (0.8-1.4)
[2020-05-29 15:34] VITALS: BP 134/39
[2020-05-29 19:12] VITALS: BP 153/44
[2020-05-29 20:57] VITALS: BP 135/44
[2020-05-30] MEDS: PROPOFOL DRIP (ICU) 100 ML IV SCH ×4 (00:17→09:09)
[2020-05-30 01:21] VITALS: BP 114/40
[2020-05-30] MEDS: RT-ALBUTEROL INHALER HFA (VENTOLIN HFA) 18 GM IH SCH ×6 (01:21→22:17)
[2020-05-30] MEDS: NOREPINEPHRINE 4 MG/250 ML 250 ML IV SCH ×6 (01:24→21:22)
[2020-05-30 03:15] LABS: ABG BASE EXCESS -5.5 MMOL/L (-2.5-2.5); ABG OXYGEN SATURATION 90 % (94-100); ABG PCO2 48 MMHG (35-45); ABG PO2 69 MMHG (79-93); ABG TCO2 22.1 MMOL/L (21.0-31.0); BASOPHILS % (AUTO) 0 % (0-10); EOSINOPHILS # (AUTO) 0.4 10^3/uL (0.0-0.3); EOSINOPHILS % (AUTO) 3 % (0-10); HEMATOCRIT 30 % (40-54); HEMOGLOBIN 9.5 g/dL (13.3-17.7); LYMPHOCYTES # (AUTO) 0.8 10^3/uL (1.0-4.0); LYMPHOCYTES % (AUTO) 7 % (12-44); MEAN CORPUSCULAR HEMOGLOBIN 31 pg (25-34); MEAN CORPUSCULAR HGB CONC 31 g/dL (32-36); MEAN CORPUSCULAR VOLUME 100 fL (80-99); MEAN PLATELET VOLUME 9.6 fL (9.0-12.2); MONOCYTES # (AUTO) 0.5 10^3/uL (0.0-1.0); MONOCYTES % (AUTO) 4 % (0-12); NEUTROPHILS # (AUTO) 8.7 10^3/uL (1.8-7.8); NEUTROPHILS % (AUTO) 78 % (42-75); PLATELET COUNT 145 10^3/uL (130-400); WHITE BLOOD COUNT 11.2 10^3/uL (4.3-11.0)
[2020-05-30 03:16] LABS: ABG PH 7.25 (7.37-7.43); ALLENS TEST ARTLINE; INSPIRED O2 50; PATIENT TEMP 36.7; VENTILATOR YES
[2020-05-30 03:22] LABS: POTASSIUM 4.2 MMOL/L (3.6-5.0)
[2020-05-30 03:24] LABS: CALCIUM 7.9 MG/DL (8.5-10.1)
[2020-05-30 03:28] LABS: CREATININE SERUM 2.9 MG/DL (0.60-1.30); PHOSPHORUS 5.1 MG/DL (2.3-4.7)
[2020-05-30 03:30] LABS: MAGNESIUM 2.4 MG/DL (1.6-2.4)
[2020-05-30] MEDS: fentaNYL DRIP PRE-MIX 250 ML IV SCH (03:44)
[2020-05-30] MEDS: MAGNESIUM 1 GM/100 ML IVPB 100 ML IV SCH (04:33)
[2020-05-30] MEDS: KCL 20 MEQ TAB (K-DUR) PO SCH (04:33)
[2020-05-30] MEDS: POTASSIUM CL 10MEQ/50ML IVPB 50 ML IV SCH (04:33)
[2020-05-30] MEDS: inSUlin ASPART (NovoLOG) 1 UNIT/0.01 ML (CHARGE PER UNIT) SC SCH ×4 (05:34→17:26)
[2020-05-30] MEDS: MIDAZOLAM DRIP PRE-MIX 100 ML IV SCH (05:35)
[2020-05-30] MEDS: PIPERACILLIN/TAZOBACTAM (BULK) 4.5 GM in NS (IVPB) 100 ML IV SCH (06:09)
[2020-05-30] MEDS: LACTATED RINGERS 1,000 ML IV SCH ×2 (06:10→15:44)
[2020-05-30 06:34] VITALS: BP 118/36
[2020-05-30] MEDS: CALCIUM ACETATE 667 MG CAP (PHOSLO) PO SCH ×3 (07:51→17:11)
[2020-05-30] MEDS: DOCUSATE SODIUM 10 MG/ML 10 ML UDC (COLACE) PO SCH ×2 (07:51→21:00)
[2020-05-30] MEDS: ARTIFICIAL TEARS OINT (LACRI-LUBE) 3.5 GM TUBE OU SCH ×3 (07:52→21:01)
[2020-05-30] MEDS: ENOXAPARIN 300 MG/3 ML (LOVENOX) MULTI-DOSE VIAL SQ SCH (07:52)
[2020-05-30] MEDS: PANTOPRAZOLE 40 MG (PROTONIX) VIAL IV SCH ×2 (07:52→20:59)
[2020-05-30] MEDS: MICONAZOLE 2% POWDER (DESENEX AF) 90 GM TOP SCH ×2 (07:53→21:01)
[2020-05-30] MEDS: meTOprolol TARTRATE 25 MG (LOPRESSOR) TABLET PO SCH ×2 (08:07→21:00)
--- NOTE | 2020-05-30 08:34 | NUR ---
TF RESIDUAL APPROX 70ML. TF CONTINUED AT 15ML/HR W/ 25ML H20 Q4.
[2020-05-30 10:34] VITALS: BP 117/36
--- NOTE | 2020-05-30 14:11 | NUR ---
pt unable to fit into ct machine d/t shoulder width. e-icu informed and order cancelled.
--- NOTE | 2020-05-30 14:40 | Progress Note - Hospitalist ---
Subjective HPI/CC On Admission Date Seen by Provider: May 30, 2020 Time Seen by Provider: 09:25 Subjective/Events-last exam He is intubated and sedated. He has reportedly not been following commands when sedation has been weaned. Objective Exam Vital Signs Vital Signs Date Time Temp Pulse Resp B/P (MAP) Pulse Ox O2 Delivery O2 Flow Rate FiO2 05/30/20 13:00 96 05/30/20 12:56 37.5 05/30/20 12:00 26 93 Mechanical Ventilator 50.00 158/45 05/30/20 10:34 50 Capillary Refill : Less Than 3 SecondsLess Than 3 Seconds General Appearance: No Apparent Distress, Obese Respiratory: No Respiratory Distress, Decreased Breath Sounds, Other (intubated and mechanically ventilated) Cardiovascular: Regular Rate, Rhythm, No Edema, No Murmur Gastrointestinal: Normal Bowel Sounds, Soft Extremity: Normal Inspection, Pedal Edema Neurologic/Psychiatric: Other (sedated) Skin: Normal Color, Warm/Dry Results/Procedures Lab Laboratory Tests 05/30/20 03:04 Patient resulted labs reviewed. Imaging: Reviewed Imaging Report Assessment/Plan Assessment and Plan Assess & Plan/Chief Complaint Acute respiratory failure with ARDS secondary to COVID-19 Pneumonia Poor prognosis Intubated 05/23 TeleICU consulted for vent management Continue tube feeds Completed course of decadron, convalescent plasma, and Remdesivir Continue Zosyn, WBC stable BUZZ BUN stable, Cr slighlty improved Continue to monitor Upper GI Bleed Bright red blood per OG tube, resolved Hemoglobin stable Surgery planning conservative management at this time Hyperphosphatemia Improved, monitor NSTEMI secondary to hypoxia Minimal and trended down, never had chest pain Hx of AFIB HTN Rate controlled Lovenox, renally dosed Rate and BP improved GI/DVT ppx: Protonix/Lovenox Steroid induced hyperglycemia, resolved Critical Care Critically Ill Patient Diagnosis/Problems Diagnosis/Problems (1) Pneumonia due to COVID-19 virus Status: Acute (2) Acute respiratory failure due to COVID-19 Status: Acute (3) BUZZ (acute kidney injury) Status: Acute (4) PNA (pneumonia) Status: Acute (5) Poor prognosis Status: Acute Clinical Quality Measures DVT/VTE Risk/Contraindication: Risk Factor Score Per Nursin RFS Level Per Nursing on Admit: 4+=Very High DALE GIANG MD May 30, 2020 14:40
[2020-05-30 14:49] VITALS: BP 113/38
--- NOTE | 2020-05-30 14:56 | NUR ---
TF RATE INCREASED TO 25ML/HR PER E-ICU AND DIETARY REC'S.
--- NOTE | 2020-05-30 15:32 | NUR ---
During care rounds, it was noted that pt is currently receiving Pulmocare 1.5 at 15ml/hr with 25ml free water flushes q4h. Would recommend conservative increases of 10ml q12h as tolerated, toward goal rate of 50ml/hr. This was calculated at 25 kcal/kg of pt's IBW of 72.7 kg (160#), due to BMI of 62.0. Will continue to follow and reassess as pt needs, intake, and status change. Luisa Valdivia MS RD LD [phone] (cell)
[2020-05-30] MEDS ORDERED: NS IV 1000 ML 1,000 ML ONE (19:40)
[2020-05-30 20:31] VITALS: BP 121/37
[2020-05-30 22:18] VITALS: BP 116/39
[2020-05-31] MEDS: NOREPINEPHRINE 4 MG/250 ML 250 ML IV SCH ×7 (00:01→22:37)
[2020-05-31] MEDS: inSUlin ASPART (NovoLOG) 1 UNIT/0.01 ML (CHARGE PER UNIT) SC SCH ×5 (00:02→23:26)
[2020-05-31] MEDS: morphine INJ 4 MG/ML 1 ML (VIAL/SYRINGE) IVP PRN (02:42)
[2020-05-31 02:49] VITALS: BP 106/33
[2020-05-31] MEDS: RT-ALBUTEROL INHALER HFA (VENTOLIN HFA) 18 GM IH SCH ×6 (02:49→21:38)
[2020-05-31] MEDS: LACTATED RINGERS 1,000 ML IV SCH ×3 (03:02→20:16)
[2020-05-31 03:09] LABS: BASOPHILS % (AUTO) 1 % (0-10); EOSINOPHILS # (AUTO) 0.4 10^3/uL (0.0-0.3); EOSINOPHILS % (AUTO) 4 % (0-10); HEMATOCRIT 29 % (40-54); LYMPHOCYTES % (AUTO) 12 % (12-44); MEAN CORPUSCULAR HEMOGLOBIN 31 pg (25-34); MEAN CORPUSCULAR HGB CONC 31 g/dL (32-36); MEAN CORPUSCULAR VOLUME 100 fL (80-99); MEAN PLATELET VOLUME 9.9 fL (9.0-12.2); MONOCYTES # (AUTO) 0.5 10^3/uL (0.0-1.0); MONOCYTES % (AUTO) 6 % (0-12); NEUTROPHILS % (AUTO) 69 % (42-75); PLATELET COUNT 151 10^3/uL (130-400); WHITE BLOOD COUNT 8.7 10^3/uL (4.3-11.0)
[2020-05-31 03:37] LABS: POTASSIUM 4.1 MMOL/L (3.6-5.0)
[2020-05-31 03:38] LABS: CALCIUM 8.2 MG/DL (8.5-10.1)
[2020-05-31 03:42] LABS: PHOSPHORUS 4.3 MG/DL (2.3-4.7)
[2020-05-31 03:43] LABS: CREATININE SERUM 2.84 MG/DL (0.60-1.30)
[2020-05-31 03:45] LABS: MAGNESIUM 2.5 MG/DL (1.6-2.4)
[2020-05-31] MEDS: POTASSIUM CL 10MEQ/50ML IVPB 50 ML IV SCH (06:01)
[2020-05-31] MEDS: KCL 20 MEQ TAB (K-DUR) PO SCH (06:02)
[2020-05-31] MEDS: MAGNESIUM 1 GM/100 ML IVPB 100 ML IV SCH (06:02)
[2020-05-31] MEDS: PANTOPRAZOLE 40 MG (PROTONIX) VIAL IV SCH ×2 (07:44→20:17)
[2020-05-31] MEDS: DOCUSATE SODIUM 10 MG/ML 10 ML UDC (COLACE) PO SCH ×2 (07:44→20:17)
[2020-05-31] MEDS: MIDAZOLAM DRIP PRE-MIX 100 ML IV SCH (07:44)
[2020-05-31] MEDS: ARTIFICIAL TEARS OINT (LACRI-LUBE) 3.5 GM TUBE OU SCH ×3 (07:45→20:05)
[2020-05-31] MEDS: CALCIUM ACETATE 667 MG CAP (PHOSLO) PO SCH ×3 (07:45→17:23)
[2020-05-31] MEDS: PROPOFOL DRIP (ICU) 100 ML IV SCH ×4 (07:46→22:19)
[2020-05-31] MEDS: MICONAZOLE 2% POWDER (DESENEX AF) 90 GM TOP SCH ×2 (07:46→20:05)
[2020-05-31] MEDS: fentaNYL DRIP PRE-MIX 250 ML IV SCH (07:46)
[2020-05-31] MEDS: ENOXAPARIN 80 MG/0.8 ML (LOVENOX) SYR SC SCH (07:46)
[2020-05-31] MEDS: meTOprolol TARTRATE 25 MG (LOPRESSOR) TABLET PO SCH ×2 (07:50→20:17)
[2020-05-31 08:12] VITALS: BP 219/60
[2020-05-31] MEDS ORDERED: ENOXAPARIN 300 MG/3 ML (LOVENOX) MULTI-DOSE VIAL SQ SCH (09:00)
[2020-05-31 10:29] VITALS: BP 158/52
[2020-05-31] MEDS: ACETAMINOPHEN 325 MG TABLET PO PRN (12:34)
--- NOTE | 2020-05-31 14:53 | NUR ---
During care rounds, it was noted that pt is receiving Pulmocare at rate of 35ml/hr with 25ml water flushes q4h. Would recommend continuation of increases 10ml q12h as tolerated toward goal rate of 50ml/hr. Goal rate based on 25 kcal/kg IBW. IBW based on 72.7 kg (160#), d/t pt's BMI of 62.3. Will continue to follow and reassess as pt needs, intake, and status change. Luisa Valdivia MS RD LD [phone] cell
[2020-05-31 14:58] VITALS: BP 124/42
--- NOTE | 2020-05-31 16:23 | Progress Note - Hospitalist ---
Subjective HPI/CC On Admission Date Seen by Provider: May 31, 2020 Time Seen by Provider: 10:40 Subjective/Events-last exam He is intubated and sedated. Objective Exam Vital Signs Vital Signs Date Time Temp Pulse Resp B/P (MAP) Pulse Ox O2 Delivery O2 Flow Rate FiO2 05/31/20 15:46 37.3 05/31/20 14:58 74 28 91 40 05/31/20 09:00 Mechanical Ventilator 40.00 05/31/20 07:54 Capillary Refill : Less Than 3 SecondsLess Than 3 Seconds General Appearance: No Apparent Distress, WD/WN Neck: Normal Inspection, Supple Respiratory: Lungs Clear, Normal Breath Sounds, No Respiratory Distress, Other (intubated and mechanically ventilated) Cardiovascular: Regular Rate, Rhythm, No Murmur Gastrointestinal: Normal Bowel Sounds, Soft, Other (large abdominal pannus) Extremity: Pedal Edema, Swelling Neurologic/Psychiatric: Other (sedated) Skin: Normal Color, Warm/Dry Results/Procedures Lab Laboratory Tests 05/31/20 02:43 Patient resulted labs reviewed. Imaging: Reviewed Imaging Report Assessment/Plan Assessment and Plan Assess & Plan/Chief Complaint Acute respiratory failure with ARDS secondary to COVID-19 Pneumonia Poor prognosis Intubated 05/23 TeleICU consulted for vent management Continue tube feeds Completed course of decadron, convalescent plasma, and Remdesivir Completed course of Zosyn Repeat procalcitonin BUZZ BUN/Cr stable Continue to monitor Upper GI Bleed Bright red blood per OG tube, resolved Hemoglobin stable Surgery planning conservative management at this time NSTEMI secondary to hypoxia Minimal and trended down, never had chest pain Hx of AFIB HTN Rate controlled Lovenox, renally dosed Rate and BP improved GI/DVT ppx: Protonix/Lovenox Steroid induced hyperglycemia, resolved Hyperphosphatemia, resolved Critical Care Critically Ill Patient Diagnosis/Problems Diagnosis/Problems (1) Pneumonia due to COVID-19 virus Status: Acute (2) Acute respiratory failure due to COVID-19 Status: Acute (3) BUZZ (acute kidney injury) Status: Acute (4) PNA (pneumonia) Status: Acute (5) Poor prognosis Status: Acute Clinical Quality Measures DVT/VTE Risk/Contraindication: Risk Factor Score Per Nursin RFS Level Per Nursing on Admit: 4+=Very High DALE GIANG MD May 31, 2020 16:23
[2020-05-31 18:10] VITALS: BP 153/45
[2020-05-31] MEDS: hydrALAZINE (APESOLINE) 20 MG/ML VIAL IV PRN (20:00)
--- NOTE | 2020-05-31 20:00 | NUR ---
Patient hypertensive with SBP >200. Hydralazine PRN dose administered.
[2020-05-31 21:38] VITALS: BP 177/40
--- NOTE | 2020-05-31 22:10 | NUR ---
Patient hypertensive at this time. SBP >190. Call placed to E ICU. Order to place patient back on sedation with Propofol and Fentanyl.
[2020-05-31] MEDS ORDERED: LABETALOL HCL 20 MG/4 ML VIAL IV PRN (22:30)
[2020-06-01] MEDS: RT-ALBUTEROL INHALER HFA (VENTOLIN HFA) 18 GM IH SCH ×6 (02:12→21:22)
[2020-06-01 02:13] VITALS: BP 141/43
[2020-06-01] MEDS: PROPOFOL DRIP (ICU) 100 ML IV SCH ×7 (02:19→21:34)
[2020-06-01] MEDS: NOREPINEPHRINE 4 MG/250 ML 250 ML IV SCH ×5 (02:24→20:52)
[2020-06-01 02:37] LABS: ABG BASE EXCESS -3.8 MMOL/L (-2.5-2.5); ABG OXYGEN SATURATION 97 % (94-100); ABG PCO2 44 MMHG (35-45); ABG PO2 92 MMHG (79-93); ABG TCO2 22.6 MMOL/L (21.0-31.0); BASOPHILS % (AUTO) 0 % (0-10); EOSINOPHILS # (AUTO) 0.3 10^3/uL (0.0-0.3); EOSINOPHILS % (AUTO) 4 % (0-10); HEMATOCRIT 28 % (40-54); HEMOGLOBIN 8.9 g/dL (13.3-17.7); LYMPHOCYTES # (AUTO) 1.2 10^3/uL (1.0-4.0); LYMPHOCYTES % (AUTO) 13 % (12-44); MEAN CORPUSCULAR HEMOGLOBIN 32 pg (25-34); MEAN CORPUSCULAR HGB CONC 32 g/dL (32-36); MEAN CORPUSCULAR VOLUME 101 fL (80-99); MEAN PLATELET VOLUME 9.8 fL (9.0-12.2); MONOCYTES # (AUTO) 0.6 10^3/uL (0.0-1.0); MONOCYTES % (AUTO) 6 % (0-12); NEUTROPHILS # (AUTO) 6.8 10^3/uL (1.8-7.8); NEUTROPHILS % (AUTO) 71 % (42-75); PLATELET COUNT 164 10^3/uL (130-400); WHITE BLOOD COUNT 9.6 10^3/uL (4.3-11.0)
[2020-06-01 02:40] LABS: ALLENS TEST ARTLINE; INSPIRED O2 45; PATIENT TEMP 37.8; VENTILATOR YES
[2020-06-01 02:41] LABS: ABG PH 7.31 (7.37-7.43)
[2020-06-01 02:54] LABS: POTASSIUM 4.2 MMOL/L (3.6-5.0)
[2020-06-01 02:55] LABS: CALCIUM 8.3 MG/DL (8.5-10.1)
[2020-06-01 03:00] LABS: CREATININE SERUM 2.61 MG/DL (0.60-1.30); PHOSPHORUS 4.4 MG/DL (2.3-4.7)
[2020-06-01 03:02] LABS: MAGNESIUM 2.6 MG/DL (1.6-2.4)
[2020-06-01] MEDS: MAGNESIUM 1 GM/100 ML IVPB 100 ML IV SCH (04:16)
[2020-06-01] MEDS: KCL 20 MEQ TAB (K-DUR) PO SCH (04:16)
[2020-06-01] MEDS: POTASSIUM CL 10MEQ/50ML IVPB 50 ML IV SCH (04:16)
[2020-06-01] MEDS: MIDAZOLAM DRIP PRE-MIX 100 ML IV SCH (04:16)
[2020-06-01] MEDS: fentaNYL DRIP PRE-MIX 250 ML IV SCH ×2 (05:18→21:33)
[2020-06-01] MEDS: LACTATED RINGERS 1,000 ML IV SCH ×2 (05:18→14:40)
[2020-06-01] MEDS: inSUlin ASPART (NovoLOG) 1 UNIT/0.01 ML (CHARGE PER UNIT) SC SCH ×3 (05:26→17:17)
[2020-06-01 06:46] VITALS: BP 156/45
[2020-06-01] MEDS: PANTOPRAZOLE 40 MG (PROTONIX) VIAL IV SCH ×2 (08:02→21:29)
[2020-06-01] MEDS: CALCIUM ACETATE 667 MG CAP (PHOSLO) PO SCH ×3 (08:02→17:12)
[2020-06-01] MEDS: meTOprolol TARTRATE 25 MG (LOPRESSOR) TABLET PO SCH ×2 (08:02→21:29)
[2020-06-01] MEDS: DOCUSATE SODIUM 10 MG/ML 10 ML UDC (COLACE) PO SCH ×2 (08:02→21:29)
[2020-06-01] MEDS: ENOXAPARIN 80 MG/0.8 ML (LOVENOX) SYR SC SCH (08:03)
[2020-06-01] MEDS: MICONAZOLE 2% POWDER (DESENEX AF) 90 GM TOP SCH ×2 (08:03→21:30)
[2020-06-01] MEDS: ARTIFICIAL TEARS OINT (LACRI-LUBE) 3.5 GM TUBE OU SCH ×3 (08:03→21:29)
[2020-06-01] MEDS: ACETAMINOPHEN 325 MG TABLET PO PRN (08:03)
[2020-06-01 10:45] VITALS: BP 148/46
--- NOTE | 2020-06-01 11:35 | NUR ---
CM/SS discharge planning. CM/SS was informed by the physician to send a referral to [facility] for possible prison acute care needs. CM/SS sent David the referral. Awaiting acceptance/denial.
[2020-06-01 14:18] VITALS: BP 189/51
--- NOTE | 2020-06-01 14:21 | NUR ---
Note pt currently receiving TF of Pulmocare at 35ml/hr with 25ml free water flushes q4h. Would recommend continuing increases of 10ml q12h as tolerated, toward goal rate of 50ml/hr. Will continue to follow and reassess as pt needs, intake, and status change. Luisa Valdivia, MS RD LD [phone] cell
--- NOTE | 2020-06-01 15:07 | Progress Note - Hospitalist ---
Subjective HPI/CC On Admission Date Seen by Provider: Jun 01, 2020 Time Seen by Provider: 09:50 Subjective/Events-last exam He remains intubated and sedated. Objective Exam Vital Signs Vital Signs Date Time Temp Pulse Resp B/P (MAP) Pulse Ox O2 Delivery O2 Flow Rate FiO2 06/01/20 14:24 80 214/60 06/01/20 14:18 31 98 45 06/01/20 11:30 37.4 06/01/20 08:35 Mechanical Ventilator 45.00 Capillary Refill : Less Than 3 SecondsLess Than 3 Seconds General Appearance: No Apparent Distress, Obese Respiratory: No Respiratory Distress, Decreased Breath Sounds, Other (intubated and mechanically ventilated) Cardiovascular: Regular Rate, Rhythm, No Edema Gastrointestinal: Normal Bowel Sounds, Soft Extremity: Normal Inspection, Pedal Edema Neurologic/Psychiatric: Other (sedated) Skin: Normal Color, Warm/Dry Results/Procedures Lab Laboratory Tests 06/01/20 02:25 Patient resulted labs reviewed. Imaging: Reviewed Imaging Report Assessment/Plan Assessment and Plan Assess & Plan/Chief Complaint Acute respiratory failure with ARDS secondary to COVID-19 Pneumonia Poor prognosis Intubated 05/23 TeleICU consulted for vent management Continue tube feeds Completed course of decadron, convalescent plasma, and Remdesivir Completed course of Zosyn BUZZ BUN/Cr stable Continue to monitor Upper GI Bleed Bright red blood per OG tube, resolved Hemoglobin stable Surgery planning conservative management at this time NSTEMI secondary to hypoxia Minimal and trended down, never had chest pain Hx of AFIB HTN Rate controlled Lovenox, renally dosed Rate and BP improved GI/DVT ppx: Protonix/Lovenox Steroid induced hyperglycemia, resolved Hyperphosphatemia, resolved Critical Care Critically Ill Patient Diagnosis/Problems Diagnosis/Problems (1) Pneumonia due to COVID-19 virus Status: Acute (2) Acute respiratory failure due to COVID-19 Status: Acute (3) BUZZ (acute kidney injury) Status: Acute (4) PNA (pneumonia) Status: Acute (5) Poor prognosis Status: Acute Clinical Quality Measures DVT/VTE Risk/Contraindication: Risk Factor Score Per Nursin RFS Level Per Nursing on Admit: 4+=Very High DAEL GIANG MD Jun 01, 2020 15:07
--- NOTE | 2020-06-01 16:19 | NUR ---
CM/SS update. CM/SS contacted the patient's Dahiana to discuss the possibility of [place]. CM/SS explained [place] and the process. Dahiana verbalized understanding and is agreeable with plan if patient is accepted. CM/SS informed her due to insurance we will have to have prior authorization and it will likely be Saturday or Saturday. She verbalized understanding. CM/SS contacted David to check on referral. He reports they are submitting to insurance but it will be Saturday or Saturday before they have an answer but they feel he is appropriate. Will send updated clinical on Saturday. The patient's asked about a financial application. This sw will contact financial services and ask them to mail and application. CM/SS will continue to follow.
[2020-06-01 19:32] VITALS: BP 182/52
[2020-06-01 21:22] VITALS: BP 197/54
[2020-06-01] MEDS: hydrALAZINE (APESOLINE) 20 MG/ML VIAL IV PRN (21:43)
[2020-06-02] MEDS: NOREPINEPHRINE 4 MG/250 ML 250 ML IV SCH ×7 (00:30→21:46)
[2020-06-02] MEDS: inSUlin ASPART (NovoLOG) 1 UNIT/0.01 ML (CHARGE PER UNIT) SC SCH ×5 (00:32→23:14)
[2020-06-02] MEDS ORDERED: niCARdipine IV FOR DRIP 50 MG KIT ONE ×2 (00:36→05:32)
[2020-06-02] MEDS ORDERED: NS (IVPB) 250 ML ONE ×2 (00:36→05:32)
[2020-06-02] MEDS: niCARdipine IV 50 MG in NS (IVPB) 230 ML IV SCH ×3 (00:51→10:16)
[2020-06-02] MEDS: LACTATED RINGERS 1,000 ML IV SCH ×3 (00:55→19:43)
[2020-06-02 02:39] VITALS: BP 189/50
[2020-06-02] MEDS: RT-ALBUTEROL INHALER HFA (VENTOLIN HFA) 18 GM IH SCH ×6 (02:39→21:27)
[2020-06-02] MEDS: PROPOFOL DRIP (ICU) 100 ML IV SCH ×4 (03:32→20:41)
[2020-06-02 03:58] LABS: ABG BASE EXCESS -3.8 MMOL/L (-2.5-2.5); ABG OXYGEN SATURATION 92 % (94-100); ABG PCO2 40 MMHG (35-45); ABG PO2 67 MMHG (79-93); ABG TCO2 22.5 MMOL/L (21.0-31.0)
[2020-06-02 03:59] LABS: BASOPHILS % (AUTO) 0 % (0-10); EOSINOPHILS # (AUTO) 0.5 10^3/uL (0.0-0.3); EOSINOPHILS % (AUTO) 5 % (0-10); HEMATOCRIT 31 % (40-54); HEMOGLOBIN 9.5 g/dL (13.3-17.7); LYMPHOCYTES # (AUTO) 0.9 10^3/uL (1.0-4.0); LYMPHOCYTES % (AUTO) 10 % (12-44); MEAN CORPUSCULAR HEMOGLOBIN 32 pg (25-34); MEAN CORPUSCULAR HGB CONC 31 g/dL (32-36); MEAN CORPUSCULAR VOLUME 101 fL (80-99); MEAN PLATELET VOLUME 9.6 fL (9.0-12.2); MONOCYTES # (AUTO) 0.7 10^3/uL (0.0-1.0); MONOCYTES % (AUTO) 7 % (0-12); NEUTROPHILS # (AUTO) 7.1 10^3/uL (1.8-7.8); NEUTROPHILS % (AUTO) 73 % (42-75); PLATELET COUNT 183 10^3/uL (130-400); WHITE BLOOD COUNT 9.7 10^3/uL (4.3-11.0)
[2020-06-02 04:18] LABS: ABG PH 7.34 (7.37-7.43); ALLENS TEST ARTLINE; INSPIRED O2 40%
[2020-06-02 04:19] LABS: PATIENT TEMP 36; POTASSIUM 4.1 MMOL/L (3.6-5.0); VENTILATOR YES
[2020-06-02 04:20] LABS: CALCIUM 8.5 MG/DL (8.5-10.1)
[2020-06-02 04:24] LABS: PHOSPHORUS 4.2 MG/DL (2.3-4.7)
[2020-06-02 04:25] LABS: CREATININE SERUM 2.43 MG/DL (0.60-1.30)
[2020-06-02 04:27] LABS: MAGNESIUM 2.4 MG/DL (1.6-2.4)
[2020-06-02 04:29] LABS: BAND NEUTROPHILS 2 %; EOSINOPHILS % (MANUAL) 3 %; LYMPHOCYTES % (MANUAL) 14 %; METAMYELOCYTES % 1 %; MONOCYTES % (MANUAL) 5 %; MYELOCYTES % 1 %; NEUTROPHILS % (MANUAL) 74 %; RBC MORPH NORMAL
[2020-06-02] MEDS: KCL 20 MEQ TAB (K-DUR) PO SCH (05:31)
[2020-06-02] MEDS: POTASSIUM CL 10MEQ/50ML IVPB 50 ML IV SCH (05:31)
[2020-06-02] MEDS: MAGNESIUM 1 GM/100 ML IVPB 100 ML IV SCH (05:31)
[2020-06-02 07:02] VITALS: BP 152/40
[2020-06-02] MEDS: PANTOPRAZOLE 40 MG (PROTONIX) VIAL IV SCH ×2 (08:00→19:43)
[2020-06-02] MEDS: DOCUSATE SODIUM 10 MG/ML 10 ML UDC (COLACE) PO SCH ×2 (08:00→19:43)
[2020-06-02] MEDS: MICONAZOLE 2% POWDER (DESENEX AF) 90 GM TOP SCH ×2 (08:01→19:52)
[2020-06-02] MEDS: meTOprolol TARTRATE 25 MG (LOPRESSOR) TABLET PO SCH ×2 (08:01→19:43)
[2020-06-02] MEDS: ARTIFICIAL TEARS OINT (LACRI-LUBE) 3.5 GM TUBE OU SCH ×3 (08:01→19:43)
[2020-06-02] MEDS: ENOXAPARIN 80 MG/0.8 ML (LOVENOX) SYR SC SCH (08:01)
[2020-06-02] MEDS: CALCIUM ACETATE 667 MG CAP (PHOSLO) PO SCH ×3 (08:01→17:31)
[2020-06-02] MEDS: MIDAZOLAM DRIP PRE-MIX 100 ML IV SCH (08:01)
[2020-06-02] MEDS: fentaNYL DRIP PRE-MIX 250 ML IV SCH ×2 (10:17→20:40)
--- NOTE | 2020-06-02 10:26 | NUR ---
1015 DR GIANG IN ROOM TO SEE PT, REQUESTING FOR THIS RN TO CHECK WITH E-ICU TO SEE IF WE CAN DECREASE PT'S PEEP. PEEP SET AT 10. THIS RN SPOKE TO DR SHAIKH WITH EICU AND ORDERS RECEIVED TO LEAVE PEEP AT CURRENT SETTING.
--- NOTE | 2020-06-02 14:08 | Progress Note - Hospitalist ---
Subjective HPI/CC On Admission Date Seen by Provider: Jun 02, 2020 Time Seen by Provider: 10:00 Subjective/Events-last exam he remains intubated and sedated. Objective Exam Vital Signs Vital Signs Date Time Temp Pulse Resp B/P (MAP) Pulse Ox O2 Delivery O2 Flow Rate FiO2 06/02/20 12:36 70 06/02/20 12:22 35.9 06/02/20 12:00 99 Mechanical Ventilator 40.00 06/02/20 11:00 12 06/02/20 08:00 45 Capillary Refill : Less Than 3 SecondsLess Than 3 Seconds General Appearance: No Apparent Distress, Obese, Other (intubated and sedated) Respiratory: No Respiratory Distress, Decreased Breath Sounds, Other (intubated and mechanically ventilated) Cardiovascular: Regular Rate, Rhythm, No Murmur Gastrointestinal: Normal Bowel Sounds, Soft, Other (large abdominal pannus) Extremity: Normal Inspection, Pedal Edema, Swelling Neurologic/Psychiatric: Other (sedated) Skin: Normal Color, Warm/Dry Results/Procedures Lab Laboratory Tests 06/02/20 03:30 Patient resulted labs reviewed. Imaging: Reviewed Imaging Report Assessment/Plan Assessment and Plan Assess & Plan/Chief Complaint Acute respiratory failure with ARDS secondary to COVID-19 Pneumonia Poor prognosis Intubated 05/23 TeleICU consulted for vent management Continue tube feeds Completed course of decadron, convalescent plasma, and Remdesivir Completed course of Zosyn BUZZ BUN/Cr stable, slowly improving Urine output adequate Continue to monitor Hx of AFIB HTN Rate controlled Lovenox, renally dosed Rate and BP improved GI/DVT ppx: Protonix/Lovenox Steroid induced hyperglycemia, resolved Hyperphosphatemia, resolved Upper GI Bleed, resolved NSTEMI, resolved Critical Care Critically Ill Patient Diagnosis/Problems Diagnosis/Problems (1) Pneumonia due to COVID-19 virus Status: Acute (2) Acute respiratory failure due to COVID-19 Status: Acute (3) BUZZ (acute kidney injury) Status: Acute (4) PNA (pneumonia) Status: Acute (5) Poor prognosis Status: Acute Clinical Quality Measures DVT/VTE Risk/Contraindication: Risk Factor Score Per Nursin RFS Level Per Nursing on Admit: 4+=Very High DLAE GIANG MD Jun 02, 2020 14:08
[2020-06-02 14:43] VITALS: BP 164/46
[2020-06-02 18:27] VITALS: BP 160/44
[2020-06-02 21:27] VITALS: BP 182/54
--- NOTE | 2020-06-02 23:27 | NUR ---
THIS RN DEEP SUCTIONED AND LAVAGED PT AND HAD BRIGHT RED SPUTUM RETURN. E-ICU CALLED AND INFORMED OF THIS. E-ICU INFORMED THIS RN TO TRY TO AVOID DEEP SUCTIONING MUCH POSSIBLE AND TO CALL BACK IF ANYTHING CHANGES.
[2020-06-03] MEDS: PROPOFOL DRIP (ICU) 100 ML IV SCH ×10 (01:06→22:56)
[2020-06-03 02:26] VITALS: BP 204/97
[2020-06-03] MEDS: RT-ALBUTEROL INHALER HFA (VENTOLIN HFA) 18 GM IH SCH ×6 (02:26→22:15)
[2020-06-03 02:27] LABS: ABG BASE EXCESS -3.4 MMOL/L (-2.5-2.5); ABG OXYGEN SATURATION 88 % (94-100); ABG PCO2 42 MMHG (35-45); ABG PO2 57 MMHG (79-93)
[2020-06-03 02:28] LABS: ALLENS TEST ARTLINE; BASOPHILS % (AUTO) 0 % (0-10); EOSINOPHILS # (AUTO) 0.7 10^3/uL (0.0-0.3); EOSINOPHILS % (AUTO) 7 % (0-10); HEMATOCRIT 31 % (40-54); HEMOGLOBIN 9.6 g/dL (13.3-17.7); INSPIRED O2 30; LYMPHOCYTES # (AUTO) 0.9 10^3/uL (1.0-4.0); LYMPHOCYTES % (AUTO) 10 % (12-44); MEAN CORPUSCULAR HEMOGLOBIN 31 pg (25-34); MEAN CORPUSCULAR HGB CONC 31 g/dL (32-36); MEAN CORPUSCULAR VOLUME 100 fL (80-99); MEAN PLATELET VOLUME 9.6 fL (9.0-12.2); MONOCYTES # (AUTO) 0.6 10^3/uL (0.0-1.0); MONOCYTES % (AUTO) 7 % (0-12); NEUTROPHILS # (AUTO) 6.7 10^3/uL (1.8-7.8); NEUTROPHILS % (AUTO) 71 % (42-75); PLATELET COUNT 169 10^3/uL (130-400); WHITE BLOOD COUNT 9.4 10^3/uL (4.3-11.0)
[2020-06-03 02:29] LABS: ABG PH 7.33 (7.37-7.43); PATIENT TEMP 36.2; VENTILATOR YES
[2020-06-03 02:44] LABS: POTASSIUM 4.1 MMOL/L (3.6-5.0)
[2020-06-03 02:46] LABS: CALCIUM 8.3 MG/DL (8.5-10.1)
[2020-06-03 02:50] LABS: CREATININE SERUM 2.11 MG/DL (0.60-1.30); PHOSPHORUS 4.2 MG/DL (2.3-4.7)
[2020-06-03 02:53] LABS: MAGNESIUM 2.3 MG/DL (1.6-2.4)
[2020-06-03] MEDS: POTASSIUM CL 10MEQ/50ML IVPB 50 ML IV SCH (03:02)
[2020-06-03] MEDS: KCL 20 MEQ TAB (K-DUR) PO SCH (03:02)
[2020-06-03] MEDS: NOREPINEPHRINE 4 MG/250 ML 250 ML IV SCH ×6 (03:02→23:01)
[2020-06-03] MEDS: MAGNESIUM 1 GM/100 ML IVPB 100 ML IV SCH (03:02)
[2020-06-03] MEDS: inSUlin ASPART (NovoLOG) 1 UNIT/0.01 ML (CHARGE PER UNIT) SC SCH ×4 (05:23→23:03)
[2020-06-03] MEDS: LACTATED RINGERS 1,000 ML IV SCH ×2 (05:23→14:48)
[2020-06-03] MEDS: fentaNYL DRIP PRE-MIX 250 ML IV SCH ×2 (05:24→14:48)
[2020-06-03] MEDS: niCARdipine IV 50 MG in NS (IVPB) 230 ML IV SCH ×2 (05:37→15:53)
[2020-06-03 07:22] VITALS: BP 181/50
[2020-06-03] MEDS: PANTOPRAZOLE 40 MG (PROTONIX) VIAL IV SCH ×2 (08:03→19:39)
[2020-06-03] MEDS: DOCUSATE SODIUM 10 MG/ML 10 ML UDC (COLACE) PO SCH ×2 (08:03→19:39)
[2020-06-03] MEDS: meTOprolol TARTRATE 25 MG (LOPRESSOR) TABLET PO SCH (08:04)
[2020-06-03] MEDS: ENOXAPARIN 80 MG/0.8 ML (LOVENOX) SYR SC SCH (08:04)
[2020-06-03] MEDS: ARTIFICIAL TEARS OINT (LACRI-LUBE) 3.5 GM TUBE OU SCH ×3 (08:04→19:39)
[2020-06-03] MEDS: MICONAZOLE 2% POWDER (DESENEX AF) 90 GM TOP SCH ×2 (08:04→19:39)
[2020-06-03] MEDS: CALCIUM ACETATE 667 MG CAP (PHOSLO) PO SCH ×3 (08:04→17:05)
[2020-06-03] MEDS: MIDAZOLAM DRIP PRE-MIX 100 ML IV SCH (08:13)
--- NOTE | 2020-06-03 08:31 | NUR ---
TF RESIDUAL <20ML. RATE INCREASED TO 50ML/HR.
[2020-06-03] MEDS: CARVEDILOL 12.5 MG (COREG) TABLET PO SCH ×2 (09:55→19:39)
--- NOTE | 2020-06-03 10:44 | NUR ---
CM/SS update: David from [facility] reached out and wanted updated clinical. CM/SS send updated clinical and awaiting acceptance from insurance.
--- NOTE | 2020-06-03 10:53 | NUR ---
Note pt is currently receiving Pulmocare at 50ml/hr with 25ml free water flushes q4h. Note TF is at goal rate. Would recommend maintain at current rate at this time, as tolerated. Will continue to follow and reassess as pt needs, intake, and status change. Luisa Valdivia, MS RD LD [phone] cell
[2020-06-03 11:09] VITALS: BP 179/54
[2020-06-03] MEDS: hydrALAZINE (APESOLINE) 20 MG/ML VIAL IV PRN ×2 (11:28→17:18)
--- NOTE | 2020-06-03 12:43 | Progress Note - Hospitalist ---
Subjective HPI/CC On Admission Date Seen by Provider: Jun 03, 2020 Time Seen by Provider: 09:40 Subjective/Events-last exam He remains intubated and sedated. Objective Exam Vital Signs Vital Signs Date Time Temp Pulse Resp B/P (MAP) Pulse Ox O2 Delivery O2 Flow Rate FiO2 06/03/20 11:33 36.9 06/03/20 11:09 92 31 94 40 06/03/20 10:00 Mechanical Ventilator 30.00 Capillary Refill : Less Than 3 SecondsLess Than 3 Seconds General Appearance: No Apparent Distress, Obese Respiratory: No Respiratory Distress, Other (coarse breath sounds throughout, intubated and mechanically ventilated) Cardiovascular: Regular Rate, Rhythm, No Edema, No Murmur Gastrointestinal: Normal Bowel Sounds, Non Tender, Soft Extremity: No Inflammation; Pedal Edema, Swelling Neurologic/Psychiatric: Other (sedated) Skin: Warm/Dry, Rash Results/Procedures Lab Laboratory Tests 06/03/20 02:14 Patient resulted labs reviewed. Imaging: Reviewed Imaging Report Assessment/Plan Assessment and Plan Assess & Plan/Chief Complaint Acute respiratory failure with ARDS secondary to COVID-19 Pneumonia Poor prognosis Intubated 05/23 TeleICU consulted for vent management Continue tube feeds Completed course of decadron, convalescent plasma, and Remdesivir Completed course of Zosyn BUZZ BUN/Cr stable, slowly improving Urine output adequate Continue to monitor Hx of AFIB HTN Rate controlled Lovenox, renally dosed Rate and BP improved GI/DVT ppx: Protonix/Lovenox Steroid induced hyperglycemia, resolved Hyperphosphatemia, resolved Upper GI Bleed, resolved NSTEMI, resolved Critical Care Critically Ill Patient Diagnosis/Problems Diagnosis/Problems (1) Pneumonia due to COVID-19 virus Status: Acute (2) Acute respiratory failure due to COVID-19 Status: Acute (3) BUZZ (acute kidney injury) Status: Acute (4) PNA (pneumonia) Status: Acute (5) Poor prognosis Status: Acute Clinical Quality Measures DVT/VTE Risk/Contraindication: Risk Factor Score Per Nursin RFS Level Per Nursing on Admit: 4+=Very High DALE GIANG MD Jun 03, 2020 12:43
[2020-06-03 14:33] VITALS: BP 157/51
[2020-06-03 18:56] VITALS: BP 192/57
[2020-06-03 22:15] VITALS: BP 134/45
[2020-06-04] MEDS: LACTATED RINGERS 1,000 ML IV SCH ×3 (00:57→19:23)
[2020-06-04] MEDS: fentaNYL DRIP PRE-MIX 250 ML IV SCH ×3 (00:57→23:01)
[2020-06-04 01:10] LABS: BASOPHILS % (AUTO) 0 % (0-10); EOSINOPHILS # (AUTO) 0.5 10^3/uL (0.0-0.3); EOSINOPHILS % (AUTO) 7 % (0-10); HEMATOCRIT 28 % (40-54); HEMOGLOBIN 8.6 g/dL (13.3-17.7); LYMPHOCYTES # (AUTO) 0.9 10^3/uL (1.0-4.0); LYMPHOCYTES % (AUTO) 13 % (12-44); MEAN CORPUSCULAR HEMOGLOBIN 31 pg (25-34); MEAN CORPUSCULAR HGB CONC 30 g/dL (32-36); MEAN CORPUSCULAR VOLUME 102 fL (80-99); MEAN PLATELET VOLUME 9.5 fL (9.0-12.2); MONOCYTES # (AUTO) 0.4 10^3/uL (0.0-1.0); MONOCYTES % (AUTO) 5 % (0-12); NEUTROPHILS # (AUTO) 5.1 10^3/uL (1.8-7.8); NEUTROPHILS % (AUTO) 68 % (42-75); PLATELET COUNT 175 10^3/uL (130-400); WHITE BLOOD COUNT 7.4 10^3/uL (4.3-11.0)
[2020-06-04 01:11] LABS: ABG BASE EXCESS -2.9 MMOL/L (-2.5-2.5); ABG OXYGEN SATURATION 95 % (94-100); ABG PCO2 45 MMHG (35-45); ABG PO2 80 MMHG (79-93); ABG TCO2 23.7 MMOL/L (21.0-31.0)
[2020-06-04 01:18] LABS: ABG PH 7.31 (7.37-7.43); ALLENS TEST YES-POS; INSPIRED O2 40%; PATIENT TEMP 36.9; VENTILATOR YES
[2020-06-04 01:24] LABS: CALCIUM 8.1 MG/DL (8.5-10.1)
[2020-06-04 01:28] LABS: PHOSPHORUS 3.7 MG/DL (2.3-4.7)
[2020-06-04 01:29] LABS: CREATININE SERUM 1.86 MG/DL (0.60-1.30)
[2020-06-04 01:31] LABS: MAGNESIUM 2.2 MG/DL (1.6-2.4)
[2020-06-04 01:35] LABS: SMEAR SCAN COMMENT YES
[2020-06-04] MEDS: POTASSIUM CL 10MEQ/50ML IVPB 50 ML IV SCH (01:44)
[2020-06-04] MEDS: MAGNESIUM 1 GM/100 ML IVPB 100 ML IV SCH (01:44)
[2020-06-04 01:45] VITALS: BP 170/52
[2020-06-04] MEDS: KCL 20 MEQ TAB (K-DUR) PO SCH (01:45)
[2020-06-04] MEDS: RT-ALBUTEROL INHALER HFA (VENTOLIN HFA) 18 GM IH SCH ×6 (01:54→22:18)
[2020-06-04] MEDS: PROPOFOL DRIP (ICU) 100 ML IV SCH ×7 (02:27→20:04)
[2020-06-04] MEDS: niCARdipine IV 50 MG in NS (IVPB) 230 ML IV SCH ×3 (02:27→19:24)
[2020-06-04] MEDS: NOREPINEPHRINE 4 MG/250 ML 250 ML IV SCH ×6 (02:43→20:15)
[2020-06-04] MEDS: inSUlin ASPART (NovoLOG) 1 UNIT/0.01 ML (CHARGE PER UNIT) SC SCH ×4 (05:12→23:05)
[2020-06-04 07:00] VITALS: BP 174/52
[2020-06-04] MEDS: MIDAZOLAM DRIP PRE-MIX 100 ML IV SCH (07:03)
[2020-06-04] MEDS: CALCIUM ACETATE 667 MG CAP (PHOSLO) PO SCH ×3 (07:56→16:49)
[2020-06-04] MEDS: ARTIFICIAL TEARS OINT (LACRI-LUBE) 3.5 GM TUBE OU SCH ×3 (07:56→19:22)
[2020-06-04] MEDS: PANTOPRAZOLE 40 MG (PROTONIX) VIAL IV SCH ×2 (07:56→19:23)
[2020-06-04] MEDS: DOCUSATE SODIUM 10 MG/ML 10 ML UDC (COLACE) PO SCH ×2 (07:56→19:24)
[2020-06-04] MEDS: MICONAZOLE 2% POWDER (DESENEX AF) 90 GM TOP SCH ×2 (07:56→19:24)
[2020-06-04] MEDS: ENOXAPARIN 80 MG/0.8 ML (LOVENOX) SYR SC SCH (07:57)
[2020-06-04] MEDS: CARVEDILOL 12.5 MG (COREG) TABLET PO SCH ×3 (07:57→19:24)
[2020-06-04 10:44] VITALS: BP 123/41
[2020-06-04] MEDS ORDERED: CARVEDILOL 12.5 MG (COREG) TABLET PO ONE (13:00)
[2020-06-04] MEDS: hydrALAZINE (APESOLINE) 20 MG/ML VIAL IV PRN (13:02)
--- NOTE | 2020-06-04 14:25 | NUR ---
sedation meds restarted d/t decreased o2 sats (upper 80s), rr upper 30s. dr bain informed. no new orders received.
[2020-06-04 14:48] VITALS: BP 127/41
--- NOTE | 2020-06-04 15:05 | Progress Note - Hospitalist ---
Subjective HPI/CC On Admission Date Seen by Provider: Jun 04, 2020 Time Seen by Provider: 10:50 Subjective/Events-last exam he remains intubated and sedated. Objective Exam Vital Signs Vital Signs Date Time Temp Pulse Resp B/P (MAP) Pulse Ox O2 Delivery O2 Flow Rate FiO2 06/04/20 14:48 72 31 95 50 06/04/20 14:07 Mechanical Ventilator 50.00 06/04/20 14:00 06/04/20 11:25 36.7 Capillary Refill : Less Than 3 SecondsLess Than 3 Seconds General Appearance: No Apparent Distress, Obese, Other (intubated and sedated) Respiratory: No Respiratory Distress, Other (coarse breath sounds bilaterally, intubated and mechanically ventilated) Cardiovascular: Regular Rate, Rhythm, No Murmur Gastrointestinal: Normal Bowel Sounds, Soft Extremity: Pedal Edema, Swelling Neurologic/Psychiatric: Other (sedated) Skin: Warm/Dry Results/Procedures Lab Laboratory Tests 06/04/20 00:59 Patient resulted labs reviewed. Imaging: Reviewed Imaging Report Assessment/Plan Assessment and Plan Assess & Plan/Chief Complaint Acute respiratory failure with ARDS secondary to COVID-19 Pneumonia Poor prognosis Intubated 05/23 TeleICU consulted for vent management Continue tube feeds Completed course of decadron, convalescent plasma, and Remdesivir Completed course of Zosyn BUZZ BUN/Cr stable, slowly improving Urine output adequate Continue to monitor Hx of AFIB HTN Rate controlled Lovenox, renally dosed increase Coreg GI/DVT ppx: Protonix/Lovenox Steroid induced hyperglycemia, resolved Hyperphosphatemia, resolved Upper GI Bleed, resolved NSTEMI, resolved Critical Care Critically Ill Patient Diagnosis/Problems Diagnosis/Problems (1) Pneumonia due to COVID-19 virus Status: Acute (2) Acute respiratory failure due to COVID-19 Status: Acute (3) BUZZ (acute kidney injury) Status: Acute (4) PNA (pneumonia) Status: Acute (5) Poor prognosis Status: Acute Clinical Quality Measures DVT/VTE Risk/Contraindication: Risk Factor Score Per Nursin RFS Level Per Nursing on Admit: 4+=Very High DALE GIANG MD Jun 04, 2020 15:05
[2020-06-04 19:43] VITALS: BP 123/39
[2020-06-04 22:18] VITALS: BP 112/38
[2020-06-05] MEDS: PROPOFOL DRIP (ICU) 100 ML IV SCH ×10 (00:23→20:54)
[2020-06-05] MEDS: NOREPINEPHRINE 4 MG/250 ML 250 ML IV SCH ×6 (00:29→23:38)
[2020-06-05 01:36] VITALS: BP 122/39
[2020-06-05] MEDS: RT-ALBUTEROL INHALER HFA (VENTOLIN HFA) 18 GM IH SCH ×6 (01:36→23:27)
[2020-06-05 03:13] LABS: BASOPHILS % (AUTO) 1 % (0-10); EOSINOPHILS # (AUTO) 0.6 10^3/uL (0.0-0.3); EOSINOPHILS % (AUTO) 10 % (0-10); HEMATOCRIT 28 % (40-54); HEMOGLOBIN 8.6 g/dL (13.3-17.7); LYMPHOCYTES # (AUTO) 0.9 10^3/uL (1.0-4.0); LYMPHOCYTES % (AUTO) 14 % (12-44); MEAN CORPUSCULAR HEMOGLOBIN 32 pg (25-34); MEAN CORPUSCULAR HGB CONC 31 g/dL (32-36); MEAN CORPUSCULAR VOLUME 103 fL (80-99); MEAN PLATELET VOLUME 9.6 fL (9.0-12.2); MONOCYTES # (AUTO) 0.4 10^3/uL (0.0-1.0); MONOCYTES % (AUTO) 6 % (0-12); NEUTROPHILS # (AUTO) 4.2 10^3/uL (1.8-7.8); NEUTROPHILS % (AUTO) 63 % (42-75); PLATELET COUNT 164 10^3/uL (130-400); WHITE BLOOD COUNT 6.7 10^3/uL (4.3-11.0)
[2020-06-05 03:14] LABS: ABG BASE EXCESS -3.6 MMOL/L (-2.5-2.5); ABG OXYGEN SATURATION 97 % (94-100); ABG PCO2 46 MMHG (35-45); ABG PO2 95 MMHG (79-93); ABG TCO2 23.5 MMOL/L (21.0-31.0)
[2020-06-05 03:20] LABS: ABG PH 7.29 (7.37-7.43)
[2020-06-05 03:21] LABS: ALLENS TEST ART LINE; INSPIRED O2 50%; PATIENT TEMP 36.1; VENTILATOR YES
[2020-06-05 03:34] LABS: CALCIUM 8.2 MG/DL (8.5-10.1)
[2020-06-05 03:38] LABS: PHOSPHORUS 4.1 MG/DL (2.3-4.7)
[2020-06-05 03:39] LABS: CREATININE SERUM 1.82 MG/DL (0.60-1.30)
[2020-06-05 03:41] LABS: MAGNESIUM 2.3 MG/DL (1.6-2.4)
[2020-06-05] MEDS: MAGNESIUM 1 GM/100 ML IVPB 100 ML IV SCH (03:43)
[2020-06-05] MEDS: KCL 20 MEQ TAB (K-DUR) PO SCH (03:43)
[2020-06-05] MEDS: MIDAZOLAM DRIP PRE-MIX 100 ML IV SCH (03:43)
[2020-06-05] MEDS: POTASSIUM CL 10MEQ/50ML IVPB 50 ML IV SCH (03:43)
[2020-06-05] MEDS: inSUlin ASPART (NovoLOG) 1 UNIT/0.01 ML (CHARGE PER UNIT) SC SCH ×3 (05:02→17:21)
[2020-06-05] MEDS: LACTATED RINGERS 1,000 ML IV SCH ×2 (05:12→15:20)
[2020-06-05 06:53] VITALS: BP 125/46
[2020-06-05] MEDS: CALCIUM ACETATE 667 MG CAP (PHOSLO) PO SCH ×3 (08:17→17:22)
[2020-06-05] MEDS: ARTIFICIAL TEARS OINT (LACRI-LUBE) 3.5 GM TUBE OU SCH ×3 (08:17→20:45)
[2020-06-05] MEDS: MICONAZOLE 2% POWDER (DESENEX AF) 90 GM TOP SCH ×2 (08:17→20:45)
[2020-06-05] MEDS: PANTOPRAZOLE 40 MG (PROTONIX) VIAL IV SCH ×2 (08:17→20:42)
[2020-06-05] MEDS: DOCUSATE SODIUM 10 MG/ML 10 ML UDC (COLACE) PO SCH ×2 (08:17→20:44)
[2020-06-05] MEDS: CARVEDILOL 12.5 MG (COREG) TABLET PO SCH ×2 (08:17→20:53)
[2020-06-05] MEDS: niCARdipine IV 50 MG in NS (IVPB) 230 ML IV SCH ×2 (08:18→18:51)
[2020-06-05] MEDS: ENOXAPARIN 80 MG/0.8 ML (LOVENOX) SYR SC SCH (08:18)
--- NOTE | 2020-06-05 09:00 | NUR ---
PER PREVIOUS RN, PT REGURGITATING T.F DURING NIGHT WHILE INFUSING AT 50ML/HR, RATE DECREASED TO 20ML/HR AT THIS TIME. PT CONTINUED TO REGURGITATE T.F UPON THIS RN ASSUMING CARE OF PT, T.F PLACED ON HOLD. ORAL CARE PROVIDED.
[2020-06-05] MEDS: fentaNYL DRIP PRE-MIX 250 ML IV SCH ×2 (09:16→19:59)
--- NOTE | 2020-06-05 10:28 | Diagnostic Imaging Report ---
INDICATION: Evaluate tube placement. COMPARISON: 05/26/2020 FINDINGS: Diffuse bilateral airspace disease. There is cardiomegaly. No pleural fusion or pneumothorax. The mediastinum is unremarkable. ET and NG tubes are in satisfactory positions. IMPRESSION: Persistent diffuse bilateral airspace disease. Dictated by: Dictated on workstation # [id number]
[2020-06-05 11:00] VITALS: BP 128/44
--- NOTE | 2020-06-05 11:15 | NUR ---
SPOKE W/ DR GIANG ABOUT T.F.-- OK TO KEEP ON HOLD.
[2020-06-05 15:23] VITALS: BP 131/44
--- NOTE | 2020-06-05 17:19 | Progress Note - Hospitalist ---
Subjective HPI/CC On Admission Date Seen by Provider: Jun 05, 2020 Time Seen by Provider: 10:35 Subjective/Events-last exam He remains intubated and sedated. Objective Exam Vital Signs Vital Signs Date Time Temp Pulse Resp B/P (MAP) Pulse Ox O2 Delivery O2 Flow Rate FiO2 06/05/20 17:00 82 23 94 Mechanical Ventilator 45.00 06/05/20 16:20 36.1 06/05/20 15:23 45 Capillary Refill : Less Than 3 SecondsLess Than 3 Seconds General Appearance: No Apparent Distress, Obese Respiratory: No Respiratory Distress, Decreased Breath Sounds, Other (coarse breath sounds throughout) Cardiovascular: Regular Rate, Rhythm, No Murmur Gastrointestinal: Normal Bowel Sounds, Soft Extremity: No Inflammation; Pedal Edema, Swelling Neurologic/Psychiatric: Other (sedated) Skin: Normal Color, Warm/Dry Results/Procedures Lab Laboratory Tests 06/05/20 02:50 Patient resulted labs reviewed. Imaging: Reviewed Imaging Report Assessment/Plan Assessment and Plan Assess & Plan/Chief Complaint Acute respiratory failure with ARDS secondary to COVID-19 Pneumonia Poor prognosis Intubated 05/23 TeleICU consulted for vent management Tube feeds held, placed on suction Completed course of decadron, convalescent plasma, and Remdesivir Completed course of Zosyn BUZZ BUN/Cr stable, slowly improving Urine output adequate Continue to monitor Hx of AFIB HTN Rate controlled Lovenox, renally dosed Coreg GI/DVT ppx: Protonix/Lovenox Steroid induced hyperglycemia, resolved Hyperphosphatemia, resolved Upper GI Bleed, resolved NSTEMI, resolved Critical Care Critically Ill Patient Diagnosis/Problems Diagnosis/Problems (1) Pneumonia due to COVID-19 virus Status: Acute (2) Acute respiratory failure due to COVID-19 Status: Acute (3) BUZZ (acute kidney injury) Status: Acute (4) PNA (pneumonia) Status: Acute (5) Poor prognosis Status: Acute Clinical Quality Measures DVT/VTE Risk/Contraindication: Risk Factor Score Per Nursin RFS Level Per Nursing on Admit: 4+=Very High DALE GIANG MD Jun 05, 2020 17:19
[2020-06-05 19:03] VITALS: BP 129/42
[2020-06-05 23:30] VITALS: BP 155/49
[2020-06-06] MEDS: inSUlin ASPART (NovoLOG) 1 UNIT/0.01 ML (CHARGE PER UNIT) SC SCH ×3 (00:58→11:26)
[2020-06-06] MEDS: PROPOFOL DRIP (ICU) 100 ML IV SCH ×5 (00:59→11:28)
[2020-06-06] MEDS: LACTATED RINGERS 1,000 ML IV SCH (01:02)
[2020-06-06 03:15] VITALS: BP 142/42
[2020-06-06] MEDS: RT-ALBUTEROL INHALER HFA (VENTOLIN HFA) 18 GM IH SCH ×3 (03:15→10:18)
[2020-06-06 03:37] LABS: ABG BASE EXCESS -4.3 MMOL/L (-2.5-2.5); ABG OXYGEN SATURATION 97 % (94-100); ABG PCO2 44 MMHG (35-45); ABG PO2 95 MMHG (79-93); ABG TCO2 22.6 MMOL/L (21.0-31.0)
[2020-06-06 03:40] LABS: ALLENS TEST ART LINE; INSPIRED O2 45%; PATIENT TEMP 36.4; VENTILATOR YES
[2020-06-06 03:48] LABS: BASOPHILS % (AUTO) 0 % (0-10); EOSINOPHILS # (AUTO) 0.8 10^3/uL (0.0-0.3); EOSINOPHILS % (AUTO) 10 % (0-10); HEMATOCRIT 29 % (40-54); HEMOGLOBIN 8.6 g/dL (13.3-17.7); LYMPHOCYTES % (AUTO) 12 % (12-44); MEAN CORPUSCULAR HEMOGLOBIN 31 pg (25-34); MEAN CORPUSCULAR HGB CONC 30 g/dL (32-36); MEAN CORPUSCULAR VOLUME 103 fL (80-99); MEAN PLATELET VOLUME 9.2 fL (9.0-12.2); MONOCYTES # (AUTO) 0.5 10^3/uL (0.0-1.0); MONOCYTES % (AUTO) 6 % (0-12); NEUTROPHILS # (AUTO) 5.4 10^3/uL (1.8-7.8); NEUTROPHILS % (AUTO) 65 % (42-75); PLATELET COUNT 178 10^3/uL (130-400); WHITE BLOOD COUNT 8.3 10^3/uL (4.3-11.0)
[2020-06-06 03:57] LABS: POTASSIUM 4.1 MMOL/L (3.6-5.0)
[2020-06-06] MEDS: NOREPINEPHRINE 4 MG/250 ML 250 ML IV SCH (03:57)
[2020-06-06] MEDS: niCARdipine IV 50 MG in NS (IVPB) 230 ML IV SCH (03:57)
[2020-06-06 03:59] LABS: CALCIUM 8.3 MG/DL (8.5-10.1)
[2020-06-06 04:03] LABS: CREATININE SERUM 1.74 MG/DL (0.60-1.30); PHOSPHORUS 4.3 MG/DL (2.3-4.7)
[2020-06-06 04:06] LABS: MAGNESIUM 2.2 MG/DL (1.6-2.4)
[2020-06-06] MEDS: KCL 20 MEQ TAB (K-DUR) PO SCH (04:06)
[2020-06-06] MEDS: MAGNESIUM 1 GM/100 ML IVPB 100 ML IV SCH (04:06)
[2020-06-06] MEDS: POTASSIUM CL 10MEQ/50ML IVPB 50 ML IV SCH (04:06)
[2020-06-06] MEDS ORDERED: SODIUM BICARB 8.4% 50 MEQ/50 ML VIAL IV ONE (05:15)
--- NOTE | 2020-06-06 05:18 | Pulmonary Progress Note ---
Subjective Time Seen by a Provider: 05:13 Subjective/Events-last exam Pt is sedated on vent. Sepsis Event Evaluation Height, Weight, BMI Height: 5'9.00" Weight: 280lbs. 0.0oz. 127.454121an; 56.00 BMI Method:Stated Exam Exam Vital Signs Date Time Temp Pulse Resp B/P (MAP) Pulse Ox O2 Delivery O2 Flow Rate FiO2 06/06/20 03:15 85 31 96 45 06/06/20 01:01 85 145/46 06/06/20 01:00 85 28 94 Mechanical Ventilator 45.00 06/06/20 01:00 85 06/06/20 00:59 85 127/44 06/06/20 00:00 86 19 95 Mechanical Ventilator 45.00 06/05/20 23:30 86 31 96 45 06/05/20 23:00 71 17 94 Mechanical Ventilator 45.00 06/05/20 22:00 71 19 95 Mechanical Ventilator 45.00 06/05/20 21:00 74 19 94 Mechanical Ventilator 45.00 06/05/20 21:00 95 Mechanical Ventilator 45 06/05/20 20:54 69 131/40 06/05/20 20:44 69 126/39 06/05/20 20:00 71 18 95 Mechanical Ventilator 45.00 06/05/20 19:55 36.1 06/05/20 19:03 86 29 94 45 06/05/20 19:00 87 06/05/20 19:00 87 18 94 Mechanical Ventilator 45.00 06/05/20 18:00 83 18 95 Mechanical Ventilator 45.00 06/05/20 17:22 82 131/44 06/05/20 17:21 82 131/44 06/05/20 17:00 82 23 94 Mechanical Ventilator 45.00 06/05/20 16:24 Mechanical Ventilator 45.00 06/05/20 16:20 36.1 06/05/20 16:00 69 29 94 Mechanical Ventilator 50.00 06/05/20 15:23 69 28 94 45 06/05/20 15:16 36.1 06/05/20 15:00 68 28 95 Mechanical Ventilator 50.00 06/05/20 14:00 67 27 93 Mechanical Ventilator 50.00 06/05/20 13:43 64 128/44 06/05/20 13:43 64 128/44 06/05/20 13:00 64 28 94 Mechanical Ventilator 50.00 06/05/20 12:59 64 06/05/20 12:04 35.6 06/05/20 12:00 64 26 94 Mechanical Ventilator 50.00 06/05/20 11:00 69 24 95 Mechanical Ventilator 50.00 06/05/20 11:00 69 29 96 50 06/05/20 10:00 70 27 95 Mechanical Ventilator 50.00 06/05/20 09:16 69 125/46 06/05/20 09:15 69 125/46 06/05/20 09:00 68 19 95 Mechanical Ventilator 50.00 06/05/20 09:00 96 Mechanical Ventilator 50 06/05/20 08:11 35.8 Mechanical Ventilator 50.00 06/05/20 08:00 69 24 95 Mechanical Ventilator 50.00 06/05/20 07:00 68 06/05/20 07:00 69 28 94 Mechanical Ventilator 50.00 06/05/20 06:53 67 29 94 50 06/05/20 06:00 66 19 96 Mechanical Ventilator 50.00 I & O 06/06/20 07:00 Intake Total 1840 ml Output Total 1000 ml Balance 840 ml Height & Weight Height: 5'9.00" Weight: 280lbs. 0.0oz. 127.271922bh; 56.00 BMI Method:Stated General Appearance: No Apparent Distress, Obese HEENT: Other (ETT and OGT in place) Neck: Normal Inspection, Supple Respiratory: No Respiratory Distress, Decreased Breath Sounds, Other (coarse breath sounds throughout) Cardiovascular: Regular Rate, Rhythm, No Murmur Capillary Refill: Less Than 3 Seconds Gastrointestinal: non tender, soft, other (yeast appearance bilateral groins/skin folds) Extremity: No Inflammation; Pedal Edema, Swelling Neurologic/Psychiatric: Other (sedated) Skin: Normal Color, Warm/Dry Results Lab Laboratory Tests 06/05/20 02:50 06/06/20 03:25 Assessment/Plan Assessment/Plan Acute respiratory failure with ARDS secondary to COVID -Intubated 05/23 -Fi02 is 45% -PEEP is currently at 8 -D/C Fentanyl -Decrease propofol to 20 and add Precedex. -obtain weaning parameters once pt is awake. -TF -EICU managed pt thorough the night. -05/24 Zosyn auto stopped at midnight -05/24 Restart Zosyn. Pt has worsening leukocytosis. and dense bilateral infiltrates -Restart zosyn. repeat coppola cultures and recheck PCT. -Decadron start upon admission currently 6mg IV daily -Labs are pending -s/p Remdesivir CVP -Decadron Acute renal failure - worsening with metabolic acidosis and oliguria -Increase IVFs -Give a liter bolus -Check CMP and renal US Hyperphos -Start phosLo Hyperglycemia -Change IVF to LR from D5LR continue at 100cc/hr morbid obesity Hypogylcemia - D5LR at 100cc/hr NSTEMI secondary to hypoxia -Denies CP Hx of AFIB -Increase Lovenox to therapeutic dosing GI/DVT ppx -Theraputic Lovenox secondary to elevated DDImer and hypoxia -Increase protonix to BID secondary to blood in OG. KEYANA MARLOW DO Jun 06, 2020 05:18
[2020-06-06 05:33] LABS: ALBUMIN 1.9 GM/DL (3.2-4.5)
[2020-06-06 05:36] LABS: TOTAL PROTEIN 5.7 GM/DL (6.4-8.2)
[2020-06-06 05:38] LABS: BILIRUBIN,TOTAL 0.2 MG/DL (0.1-1.0)
[2020-06-06 06:40] VITALS: BP 155/44
[2020-06-06] MEDS: hydrALAZINE (APESOLINE) 20 MG/ML VIAL IV PRN (06:46)
[2020-06-06] MEDS: ENOXAPARIN 80 MG/0.8 ML (LOVENOX) SYR SC SCH (07:57)
[2020-06-06] MEDS: PANTOPRAZOLE 40 MG (PROTONIX) VIAL IV SCH (07:57)
[2020-06-06] MEDS: CALCIUM ACETATE 667 MG CAP (PHOSLO) PO SCH (07:58)
[2020-06-06] MEDS: MICONAZOLE 2% POWDER (DESENEX AF) 90 GM TOP SCH (07:59)
[2020-06-06] MEDS: ARTIFICIAL TEARS OINT (LACRI-LUBE) 3.5 GM TUBE OU SCH (07:59)
[2020-06-06] MEDS: DOCUSATE SODIUM 10 MG/ML 10 ML UDC (COLACE) PO SCH (07:59)
[2020-06-06] MEDS: CARVEDILOL 12.5 MG (COREG) TABLET PO SCH (08:20)
[2020-06-06] MEDS ORDERED: METOCLOPRAMIDE INJ 10 MG/2 ML (REGLAN) IVP SCH (09:00)
--- NOTE | 2020-06-06 09:53 | NUR ---
CM/SS update CM/SS sent updated clinical to David at [facility]. Still awaiting insurance approval.
[2020-06-06 10:18] VITALS: BP 155/44
[2020-06-06 10:26] VITALS: BP 138/43
[2020-06-06 15:08] VITALS: BP 192/66
--- NOTE | 2020-06-06 15:12 | NUR ---
PT'S INFORMED THAT PT WAS D/C TO [facility].
== END 2020-06-06 14:20 | DRG 207 ==
LOC: EDUNIT# 10:07 → ER 10:09 → EDLOC 11:52 → ICU 11:52 → CSD 05-18 07:06 → ICU 05-20 06:57
PROVIDERS: ADMIT Internal Medicine; ATTEND Internal Medicine
PROC: XW033E5 Introduction of Remdesivir Anti-infective into Peripheral Vein, Percutaneous Approach, New Technology Group 5 (ICD-10-PCS; principal; 2020-05-17)
PROC: XW13325 Transfusion of Convalescent Plasma (Nonautologous) into Peripheral Vein, Percutaneous Approach, New Technology Group 5 (ICD-10-PCS; 2020-05-17)
PROC: 5A09457 Assistance with Respiratory Ventilation, 24-96 Consecutive Hours, Continuous Positive Airway Pressure (ICD-10-PCS; 2020-05-21)
PROC: 5A1955Z Respiratory Ventilation, Greater than 96 Consecutive Hours (ICD-10-PCS; 2020-05-23)
PROC: 0BH17EZ Insertion of Endotracheal Airway into Trachea, Via Natural or Artificial Opening (ICD-10-PCS; 2020-05-23)
DX: U07.1 COVID-19 (principal); J12.89 Other viral pneumonia; I21.4 Non-ST elevation (NSTEMI) myocardial infarction; J80 Acute respiratory distress syndrome; Z68.43 Body mass index [BMI] 50.0-59.9, adult; K92.2 Gastrointestinal hemorrhage, unspecified; N17.9 Acute kidney failure, unspecified; I48.91 Unspecified atrial fibrillation; E11.65 Type 2 diabetes mellitus with hyperglycemia; E11.649 Type 2 diabetes mellitus with hypoglycemia without coma; I95.9 Hypotension, unspecified; E66.01 Morbid (severe) obesity due to excess calories; I10 Essential (primary) hypertension; E78.00 Pure hypercholesterolemia, unspecified; B37.2 Candidiasis of skin and nail; M19.91 Primary osteoarthritis, unspecified site; G47.30 Sleep apnea, unspecified; I87.2 Venous insufficiency (chronic) (peripheral); H91.93 Unspecified hearing loss, bilateral; I45.10 Unspecified right bundle-branch block; I44.4 Left anterior fascicular block; F41.9 Anxiety disorder, unspecified; F32.9 Major depressive disorder, single episode, unspecified; Z95.5 Presence of coronary angioplasty implant and graft; Z79.4 Long term (current) use of insulin; Z97.4 Presence of external hearing-aid; T38.0X5A Adverse effect of glucocorticoids and synthetic analogues, initial encounter; E83.39 Other disorders of phosphorus metabolism; Z73.0 Burn-out
CPT/HCPCS: 36415; 36569; 71045; 76770; 76937; 80048; 80053; 80202; 81000; 82040; 82728; 82805; 82962; 83605; 83735; 83880; 84100; 84145; 84478; 84484; 85007; 85025; 85027; 85379; 85384; 85610; 85730; 86022; 86141; 86900; 86901; 87040; 87070; 87081; 87205; 87449; 87804; 87899; 93005; 93041; 94002; 94003; 94640; 94660; 94799; 96360; 96361